=== PATIENT | female | born 1990 | race African-American/Black ===

== ENCOUNTER 2017-12-20 21:32 | Emergency (ER) | payer SELFPAY ==
[2017-12-20 22:25] LABS: Absolute Lymphocytes (CBC) 4.2 K/uL (0.7-4.9); Absolute Monocytes 0.6 K/uL (0.1-1.3); Absolute Neutrophil 5.8 K/uL (1.8-8.0); Basophils % 0.2 % (0-1.3); Eosinophils % 3.1 % (0-4.4); Hematocrit 40.9 % (36.0-45.0); Lymphocytes % 38.3 % (15.3-44.8); MCV 80.5 fL (80-100); MPV 7.9 fL (7.6-11.3); Monocytes % 5.4 % (3.3-12.3); RBC Red Blood Cell Count 5.08 M/uL (3.86-4.86)
[2017-12-20 22:30] LABS: Protime INR 1.15
[2017-12-20 22:49] LABS: Bilirubin Direct 0.1 mg/dL (0-0.2); Bilirubin Total 0.4 mg/dL (0.2-1.0); CKMB Creatine Kinase MB 1.1 ng/mL (0.3-3.6); Magnesium 2.1 mg/dL (1.8-2.4); Potassium 3.6 mmol/L (3.5-5.1); Protein, Total 8.3 g/dL (6.4-8.2)
[2017-12-20 23:40] LABS: Urine Specific Gravity >1.030 (1.005-1.030)
[2017-12-20 23:40] LABS: Urine Blood TRACE (NEG); Urine Glucose NEGATIVE (NEG); Urine Protein NEGATIVE (NEG); Urine Specific Gravity >1.030 (1.005-1.030); Urine pH 5.5 (5.0-7.0)
[2017-12-21] MEDS ORDERED: KETOROLAC 30 MG/ML INJ ONE (00:02)
--- NOTE | 2017-12-21 00:08 | EDPHYS ---
Physician Documentation [facility] Name: Chastity Otto Age: 27 yrs Sex: Female : 1990 Arrival Date: 12/20/2017 Time: 21:33 Bed 6 Private MD: ED Physician Mat Clark INSURANCE ANALYST: 12/20 22:32 LMP 12/15/2017 ea Historical: - Allergies: 21:48 Sulfa (Sulfonamide Antibiotics); ea - Home Meds: 21:48 None [Active]; ea - PMHx: 21:48 None; ea - PSHx: 21:48 None; ea - Immunization history:: Adult Immunizations up to date. - Social history:: Smoking status: Patient/guardian denies using tobacco. - Ebola Screening: : No symptoms or risks identified at this time. Vital Signs: 21:41 BP 120 / 103; Pulse 80; Resp 18; Temp 98(O); Pulse Ox 98% on R/A; Weight 120.2 kg; ea Height 5 ft. 1 in. (154.94 cm); Pain 7/10; 21:51 BP 138 / 99; Pulse 79; Resp 18; Pulse Ox 97% ; ea 22:33 BP 129 / 91; Pulse 74; Resp 18; Pulse Ox 99% on R/A; ea 23:28 BP 127 / 80; Pulse 64; Resp 18; Pulse Ox 99% on R/A; ea 12/21 00:09 BP 138 / 99; Pulse 65; Resp 18; Pulse Ox 99% on R/A; ak1 12/20 21:41 Body Mass Index 50.07 (120.20 kg, 154.94 cm) ea MDM: 12/20 21:56 Patient medically screened. tw 12/20 21:57 Order name: Basic Metabolic Panel; Complete Time: 23:56 [facility] 12/20 23:56 Interpretation: Within normal limits: GFR 79. tw4 12/20 21:57 Order name: CBC with Diff; Complete Time: 23:56 [facility] 12/20 23:56 Interpretation: Normal except: WBC 11.0; RBC 5.08; PLT 421. [facility] 12/20 21:57 Order name: Ckmb; Complete Time: 23:56 [facility] 12/20 21:57 Order name: CPK; Complete Time: 23:56 12/20 21:57 Order name: LFT's; Complete Time: 23:56 12/20 23:56 Interpretation: Normal except: TP 8.3; GLOB 4.3; A/G 0.9. 12/20 21:57 Order name: Magnesium; Complete Time: 23:56 12/20 21:57 Order name: NT PRO-BNP; Complete Time: 23:56 12/20 21:57 Order name: PT-INR; Complete Time: 23:56 12/20 21:57 Order name: Ptt, Activated; Complete Time: 23:56 12/20 21:57 Order name: Troponin (emerg Dept Use Only); Complete Time: 23:56 12/20 21:57 Order name: XRAY Chest (1 view) 12/20 22:29 Order name: Urine Dipstick--Ancillary (enter results); Complete Time: 23:56 rust 12/20 23:56 Interpretation: Normal except: USPGR >1.030; UBLD TRACE. 12/20 22:30 Order name: Urine --Ancillary (enter results); Complete Time: 23:56 12/20 21:57 Order name: EKG; Complete Time: 21:58 12/20 21:57 Order name: Cardiac monitoring; Complete Time: 22:05 12/20 21:57 Order name: EKG - Nurse/Tech; Complete Time: 21:58 12/20 21:57 Order name: IV Saline Lock; Complete Time: 22:17 12/20 21:57 Order name: Labs collected and sent; Complete Time: 22:17 12/20 21:57 Order name: O2 Per Protocol; Complete Time: 21:58 12/20 21:57 Order name: O2 Sat Monitoring; Complete Time: 21:58 12/20 21:57 Order name: Urine Dipstick-Ancillary (obtain specimen); Complete Time: 22:14 Administered Medications: 12/21 00:00 Drug: TORadol 30 mg Route: IVP; Site: right antecubital; ak1 00:10 Follow up: Response: No adverse reaction ak1 Disposition: 12/21/17 00:07 Discharged to Home. Impression: Chest pain, unspecified, Headache. - Condition is Stable. - Discharge Instructions: Migraine Headache, Pain Without a Known Cause, Chest Pain, Pediatric. - Prescriptions for Fiorinal 50- 325-40 mg Oral Capsule - take 1 capsule by ORAL route every 4 hours As needed - not to exceed 6 capsules per day; 20 capsule. - Medication Reconciliation Form, Thank You Letter, Antibiotic Education, Prescription Opioid Use form. - Follow up: Private Physician; When: As needed; Reason: Recheck today's complaints, Re-evaluation by your physician. - Problem is new. - Symptoms have improved. Addendum: 01/17/2018 13:03 Addendum: Pt is a 26 year old female that complains of left sided headache for 4 days. t w4 Pt denies neck stiffness, fevers, photophobia or sore throat. Pt also complains of mild sided left chest pain associated with palpiations. Addendum: PMH: none PSH: none Meds: none All: none. Addendum: ROS:Constitutional: negative for fevers chills HEENT: negative for sore throat, ear pain CV: negative for CP, KOROMA Resp:negative for SOB, KOROMA Abdomen: negative for abdominal pain, nausea vomiting diarrhea Neuro: negative for weakness, numbness, parasthesias. Addendum: PE: General well developed female in NAD HEENT: PERRLA, EOMI, pharynx normal CV: RRR, nl S1, S2 Resp: CTAB, no wheezing, no rales Abdomen: soft, ND,NT, nl BS Neuro: alert and oriented times three. Signatures: Dispatcher [employer] EDME Areli Ravi RN RN Judy Driver RN Mat Pradhan ea, MD MD tw4 Corrections: (The following items were deleted from the chart) 12/21 00:24 00:07 12/21/2017 00:07 Discharged to Home. Impression: Chest pain, unspecified; ea Headache. Condition is Stable. Forms are Medication Reconciliation Form, Thank You Letter, Antibiotic Education, Prescription Opioid Use. Follow up: Private Physician; When: As needed; Reason: Recheck today's complaints, Re-evaluation by your physician. Problem is new. Symptoms have improved. tw4
--- NOTE | 2017-12-21 00:08 | ER ---
Nurse's Notes [facility] Name: Chastity Otto Age: 27 yrs Sex: Female : 1990 Arrival Date: 12/20/2017 Time: 21:33 Bed 6 Private MD: Diagnosis: Chest pain, unspecified;Headache Presentation: 12/20 21:45 Presenting complaint: Patient states: Pt complaining of throbbing headache to left side ea of head that has been constant for the past 4 days. Reports chest pain and palpitations that started today. Transition of care: patient was not received from another setting of care. Onset of symptoms was December 20, 2017. Risk Assessment: Do you want to hurt yourself or someone else? Patient reports no desire to harm self or others. Initial Sepsis Screen: Does the patient meet any 2 criteria? No. Patient's initial sepsis screen is negative. Does the patient have a suspected source of infection? No. Patient's initial sepsis screen is negative. Care prior to arrival: None. 21:45 Method Of Arrival: Ambulatory ea 21:45 Acuity: ROSA 3 ea Triage Assessment: 21:51 General: Appears uncomfortable, Behavior is calm, cooperative, appropriate for age. ea Pain: Complains of pain in left side of head and left parietal area, midsternal pain. Neuro: Level of Consciousness is awake, alert, obeys commands, Oriented to person, place, time, situation. Cardiovascular: Heart tones S1 S2 present Patient's skin is warm and dry. Respiratory: Airway is patent Respiratory effort is even, unlabored, Respiratory pattern is regular, symmetrical. POISON INFORMATION SPECIALIST: 22:32 LMP 12/15/2017 ea Historical: - Allergies: 21:48 Sulfa (Sulfonamide Antibiotics); ea - Home Meds: 21:48 None [Active]; ea - PMHx: 21:48 None; ea - PSHx: 21:48 None; ea - Immunization history:: Adult Immunizations up to date. - Social history:: Smoking status: Patient/guardian denies using tobacco. - Ebola Screening: : No symptoms or risks identified at this time. Screenin:54 Abuse screen: Denies threats or abuse. Nutritional screening: No deficits noted. ea Tuberculosis screening: No symptoms or risk factors identified. Fall Risk None identified. Assessment: 22:31 Reassessment: Patient and/or family updated on plan of care and expected duration. Pain ea level reassessed. Patient is alert, oriented x 3, equal unlabored respirations, skin warm/dry/pink. 22:31 Pain: Complains of pain in mid-sternal area Pain does not radiate. Pain began 4 hours ea ago. 23:28 Reassessment: Patient and/or family updated on plan of care and expected duration. Pain ea level reassessed. Patient is alert, oriented x 3, equal unlabored respirations, skin warm/dry/pink. 12/21 00:21 Reassessment: Patient and/or family updated on plan of care and expected duration. Pain ea level reassessed. Patient is alert, oriented x 3, equal unlabored respirations, skin warm/dry/pink. Discharge instructions given to patient, verbalized the understanding of instruction. Vital Signs: 12/20 21:41 BP 120 / 103; Pulse 80; Resp 18; Temp 98(O); Pulse Ox 98% on R/A; Weight 120.2 kg; ea Height 5 ft. 1 in. (154.94 cm); Pain 7/10; 21:51 BP 138 / 99; Pulse 79; Resp 18; Pulse Ox 97% ; ea 22:33 BP 129 / 91; Pulse 74; Resp 18; Pulse Ox 99% on R/A; ea 23:28 BP 127 / 80; Pulse 64; Resp 18; Pulse Ox 99% on R/A; ea 12/21 00:09 BP 138 / 99; Pulse 65; Resp 18; Pulse Ox 99% on R/A; ak1 12/20 21:41 Body Mass Index 50.07 (120.20 kg, 154.94 cm) ea ED Course: 12/20 21:33 Patient arrived in ED. ds1 21:45 Judy Robb, RN is Primary Nurse. ea 21:45 Arm band placed on right wrist. Patient placed in an exam room, on a stretcher, on ea monitoring engineer, on pulse oximetry. 21:45 Patient has correct armband on for positive identification. court monitor on. Pulse ea ox on. NIBP on. 21:48 Triage completed. ea 21:54 Patient maintains SpO2 saturation greater than 95% on room air. ea 21:56 Mat Clark MD is Attending Physician. tw4 21:58 EKG completed in triage. Results shown to . ak1 22:16 Initial lab(s) drawn, by me, sent to lab. Inserted saline lock: 20 gauge in right ks6 antecubital area, using aseptic technique. Blood collected. 22:26 X-ray completed. Portable x-ray completed in exam room. Patient tolerated procedure mh1 well. 22:27 XRAY Chest (1 view) In Process Unspecified. EDMS 12/21 00:11 No provider procedures requiring assistance completed. ak1 00:23 IV discontinued, intact, bleeding controlled, No redness/swelling at site. Pressure ea dressing applied. Administered Medications: 00:00 Drug: TORadol 30 mg Route: IVP; Site: right antecubital; ak1 00:10 Follow up: Response: No adverse reaction ak1 Outcome: 00:07 Discharge ordered by tw4 00:11 Condition: stable ak1 00:21 Discharge instructions given to patient, Instructed on discharge instructions, follow ea up and referral plans. medication usage, Demonstrated understanding of instructions, follow-up care, medications, Prescriptions given X 2. 00:23 Discharged to home ambulatory. ea 00:24 Patient left the ED. ea Signatures: Dispatcher [employer] EDTN Mabel Sims 1 Rebecca Sharp ds1 Areli Ravi RN RN ak1 Judy Robb RN RN ea Wadley, Terrence, MD MD tw4 Rafael Austin ks6
--- NOTE | 2017-12-21 07:19 | RAD REPORT ---
EXAM DESCRIPTION: RAD - Chest Single View - 12/20/2017 10:28 pm CLINICAL HISTORY: Chest pain COMPARISON: July 01 TECHNIQUE: AP portable chest image was obtained 2215 hours . FINDINGS: Lungs are clear. Heart and vasculature are normal. No measurable pleural effusion and no p neumothorax. No gross bony abnormality seen. No acute aortic findings suspected. IMPRESSION: No acute cardiopulmonary process. No significant interval change.
--- NOTE | 2017-12-21 09:23 | EKG ---
Test Date: 2017-12-20 Test Time: 21:44:42 Project Control Manager: KIMBERLY MEASUREMENT RESULTS: Intervals: Rate: 82 NJ: 126 QRSD: 82 QT: 378 QTc: 441 Glidden: P: 25 NJ: 126 QRS: 14 T: 2 INTERPRETIVE STATEMENTS: Normal sinus rhythm Normal ECG Compared to ECG 07/01/2017 01:57:33 T-wave abnormality no longer present Electronically Signed On 12-21-17 09:22:41 CDT by Paul Du
== END 2017-12-21 00:24 | disposition home or self-care (01) ==
LOC: ER 21:32
DX: R07.9 Chest pain, unspecified (principal); R51 Headache; Z88.2 Allergy status to sulfonamides
CPT/HCPCS: 36415; 71045; 80048; 80076; 81003; 81025; 82550; 82553; 83735; 83880; 84484; 85025; 85610; 85730; 93005; 96374; 99285

== ENCOUNTER 2019-03-12 12:50 | Emergency (ER) | payer SELFPAY ==
[2019-03-12] MEDS ORDERED: NA CHLORIDE 0.9% 1,000 ML ONE (13:59)
[2019-03-12] MEDS ORDERED: ONDANSETRON 4 MG/2 ML VIAL ONE ×2 (13:59→16:09)
[2019-03-12 14:57] LABS: Absolute Lymphocytes (CBC) 0.6 K/uL (0.7-4.9); Basophils % 0.1 % (0-1.3); Hematocrit 38.9 % (36.0-45.0); Lymphocytes % 5.2 % (15.3-44.8); MPV 8.1 fL (7.6-11.3); RBC Red Blood Cell Count 4.87 M/uL (3.86-4.86)
[2019-03-12 15:21] LABS: Urine Bacteria 20-50 /HPF (<20); Urine Culture Reflex Order REFLEXED; Urine RBC <5 /HPF (NONE SEEN)
[2019-03-12 15:21] LABS: Urine Blood TRACE (NEG); Urine Glucose NEGATIVE (NEG); Urine Protein NEGATIVE (NEG); Urine Specific Gravity 1.015 (1.005-1.030)
[2019-03-12 16:15] LABS: Platelet Estimate ADEQ; Urine White Blood Cell Casts OK
[2019-03-12 16:16] LABS: Blood Morphology Comment NOT SEEN (NOT SEEN)
[2019-03-12] MEDS ORDERED: KETOROLAC 30 MG/ML INJ ONE (17:44)
[2019-03-12 17:45] LABS: ALT/SGPT 15 U/L (12-78); AST/SGOT 18 U/L (15-37); Albumin 3.7 g/dL (3.4-5.0); Alkaline Phosphatase 72 U/L (45-117); BUN Blood Urea Nitrogen 9 mg/dL (7-18); Bicarbonate 26 mmol/L (21-32); Bilirubin Direct 0.2 mg/dL (0-0.2); Bilirubin Total 0.9 mg/dL (0.2-1.0); Glucose Level 110 mg/dL (74-106); Lipase 70 U/L (73-393); Potassium 3.9 mmol/L (3.5-5.1); Protein, Total 7.5 g/dL (6.4-8.2); Sodium Level 136 mmol/L (136-145)
--- NOTE | 2019-03-12 18:08 | ER ---
Nurse's Notes [facility] Name: Chastity Otto Age: 29 yrs Sex: Female : 1990 Arrival Date: 03/12/2019 Time: 12:52 Bed 20 Private MD: Vivek Fabian Diagnosis: Vomiting;Diarrhea, unspecified Presentation: 03/12 13:01 Presenting complaint: N/V/D and chills x 2 days. Transition of care: patient was not hb received from another setting of care. Onset of symptoms was March 11, 2019. Risk Assessment: Do you want to hurt yourself or someone else? Patient reports no desire to harm self or others. Initial Sepsis Screen: Does the patient meet any 2 criteria? HR > 90 bpm. No. Patient's initial sepsis screen is negative. Care prior to arrival: None. 13:01 Method Of Arrival: Ambulatory hb 13:01 Acuity: ROSA 3 hb 18:19 Initial Sepsis Screen: Does the patient have a suspected source of infection? No. ch Patient's initial sepsis screen is negative. Triage Assessment: 18:19 GI: Reports nausea, vomiting. 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 - Social history:: Smoking status: Patient/guardian denies using tobacco. - Ebola Screening: : No symptoms or risks identified at this time. Screenin:34 Abuse screen: Denies threats or abuse. Denies injuries from another. Nutritional ch screening: No deficits noted. Tuberculosis screening: No symptoms or risk factors identified. Fall Risk None identified. Assessment: 13:34 General: Appears in no apparent distress. comfortable, Behavior is calm, cooperative, ch appropriate for age. Pain: Complains of pain in abdomen Pain currently is 8 out of 10 on a pain scale. Pain began suddenly. Neuro: No deficits noted. Respiratory: No deficits noted. Airway is patent Respiratory effort is even, unlabored. GI: Abdomen is round obese, Bowel sounds present X 4 quads. Abd is soft and non tender. : No signs and/or symptoms were reported regarding the genitourinary system. Derm: Skin is pink, warm \T\ dry. 14:46 Reassessment: Patient appears in no apparent distress at this time. Patient and/or ch family updated on plan of care and expected duration. Pain level reassessed. Patient is alert, oriented x 3, equal unlabored respirations, skin warm/dry/pink. 15:10 Reassessment: Patient appears in no apparent distress at this time. contacted Lab about pt results, states they are backed up. 15:24 Reassessment: Patient appears in no apparent distress at this time. Patient and/or ch family updated on plan of care and expected duration. Pain level reassessed. Patient is alert, oriented x 3, equal unlabored respirations, skin warm/dry/pink. Patient states feeling better. 16:00 Reassessment: Patient appears in no apparent distress at this time. LAB STATES THEY DO ch NOT HAVE A GREEN TOP ON THE PT. BLOOD RE DRAWN AND SENT TO LAB. LAB CONFIRMS THEY GOT THE BLOOD. PT C/O INCREASE IN NAUSEA, PT MEDICATED PER ORDERS. 16:48 Reassessment: Patient appears in no apparent distress at this time. LAB STATES THEY ch HAVE HER BLOOD BUT DO NOT HAVE THE BMP LABEL. LAB STATES THEY WILL RUN THE BMP NOW. TSH IS RUNNING NOW. 17:29 Reassessment: TSH RESULTED. I CONTACT BRENDA CHEN CHECKING ON BMP NOW. ch 17:30 Reassessment: Patient appears in no apparent distress at this time. Patient and/or ch family updated on plan of care and expected duration. Pain level reassessed. Patient is alert, oriented x 3, equal unlabored respirations, skin warm/dry/pink. 17:41 Reassessment: tp c/o headache. order received for tordal. pt medicated per orders. ch 18:15 Reassessment: Patient appears in no apparent distress at this time. Patient and/or ch family updated on plan of care and expected duration. Pain level reassessed. Patient is alert, oriented x 3, equal unlabored respirations, skin warm/dry/pink. Patient denies pain at this time. Patient states feeling better. Patient states symptoms have improved. Vital Signs: 13:02 BP 152 / 105; Pulse 123; Resp 16; Temp 97.7; Pulse Ox 100% on R/A; Weight 122.47 kg; hb Height 5 ft. 2 in. (157.48 cm); Pain 0/10; 14:00 BP 127 / 87; Pulse 105; Resp 14; Temp 98.4; Pulse Ox 99% on R/A; Pain 0/10; ch 15:24 BP 136 / 88; Pulse 106; Resp 20; Pulse Ox 98% on R/A; Pain 0/10; ch 16:48 BP 140 / 92; Pulse 97; Resp 16; Temp 98.8; Pulse Ox 99% on R/A; Pain 0/10; ch 18:15 BP 120 / 79; Pulse 95; Resp 16; Temp 98.7; Pulse Ox 99% on R/A; Pain 0/10; ch 13:02 Body Mass Index 49.38 (122.47 kg, 157.48 cm) hb ED Course: 12:52 Patient arrived in ED. mr 12:52 Vivek Fabian MD is Private Physician. mr 13:02 Triage completed. hb 13:02 Arm band placed on. hb 13:05 Bobby Vasquez MD is Attending Physician. 13:05 Attending Physician role handed off by Bobby Vasquez MD john 13:05 Mark Bennett MD is Attending Physician. [facility] 13:12 Bobby Vasquez MD is Attending Physician. 13:34 Lizzie Garzon, ERICKSON is Primary Nurse. 13:34 No apparent distress. Resting quietly. ch 13:34 Patient has correct armband on for positive identification. Bed in low position. Call light in reach. Side rails up X 1. Adult w/ patient. Pulse ox on. NIBP on. Door closed. Noise minimized. Lights dimmed. 13:34 No provider procedures requiring assistance completed. Urine collected: clean catch specimen. Inserted saline lock: 18 gauge in right antecubital area, using aseptic technique. Blood collected. 18:15 IV discontinued, intact, bleeding controlled, No redness/swelling at site. Pressure dressing applied. Administered Medications: 13:36 Drug: NS 0.9% 1000 ml Route: IV; Rate: 1 bolus; Site: right antecubital; ch 14:45 Follow up: Response: No adverse reaction; IV Status: Completed infusion 13:36 Drug: Zofran 4 mg Route: IVP; Site: right antecubital; ch 14:45 Follow up: Response: No adverse reaction; Marked relief of symptoms ch 16:10 Drug: Zofran 4 mg Route: IVP; Site: right antecubital; ch 17:26 Follow up: Response: No adverse reaction; Marked relief of symptoms ch 17:52 Drug: TORadol 15 mg Route: IVP; Site: right antecubital; ch 18:15 Follow up: Response: No adverse reaction; Pain is decreased ch Outcome: 18:07 Discharge ordered by . gs 18:15 Discharged to home ambulatory, with family. ch 18:15 Condition: stable 18:15 Discharge instructions given to patient, family, Instructed on discharge instructions, follow up and referral plans. medication usage, Demonstrated understanding of instructions, follow-up care, medications, clear liquid, advance to bland diet as tolerated. Prescriptions given X 1. 18:18 Patient left the ED. ch Signatures: Lizzie Garzon RN RN ch Mark Bennett MD MD cha Rivera, Mary mr Jacki Frazier RN RN Bobby Vasquez MD MD Corrections: (The following items were deleted from the chart) 14:49 13:34 GI: Abdomen is round obese, Bowel sounds present X 4 quads. Abd is soft X 4 quads ch Abdomen is tender to palpation in left upper quadrant, right lower quadrant and left lower quadrant ch
--- NOTE | 2019-03-12 18:08 | EDPHYS ---
Physician Documentation [facility] Name: Chastity Otto Age: 29 yrs Sex: Female : 1990 Arrival Date: 03/12/2019 Time: 12:52 Bed 20 Private MD: Vivek Fabian ED Physician Bobby Vasquez HPI: 03/12 18:00 This 29 yrs old Black Female presents to ER via Ambulatory with complaints of gs Nausea/Vomiting/Diarrhea. 18:00 The patient presents to the emergency department with nausea, vomiting, diarrhea. gs Onset: The symptoms/episode began/occurred yesterday. Possible causes: unknown. The symptoms are aggravated by nothing. The symptoms are alleviated by nothing. Associated signs and symptoms: Pertinent negatives: abdominal pain, fever. Severity of symptoms: At their worst the symptoms were severe in the emergency department the symptoms have improved moderately. The patient has experienced similar episodes in the past, a few times. The patient has not recently seen a physician. 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 - Social history:: Smoking status: Patient/guardian denies using tobacco. - Ebola Screening: : No symptoms or risks identified at this time. ROS: 18:00 All other systems are negative. gs Exam: 18:00 Head/Face: Normocephalic, atraumatic. Eyes: Pupils equal round and reactive to light, gs extra-ocular motions intact. Lids and lashes normal. Conjunctiva and sclera are non-icteric and not injected. Cornea within normal limits. Periorbital areas with no swelling, redness, or edema. ENT: Nares patent. No nasal discharge, no septal abnormalities noted. Tympanic membranes are normal and external auditory canals are clear. Oropharynx with no redness, swelling, or masses, exudates, or evidence of obstruction, uvula midline. Mucous membranes moist. Neck: Trachea midline, no thyromegaly or masses palpated, and no cervical lymphadenopathy. Supple, full range of motion without nuchal rigidity, or vertebral point tenderness. No Meningismus. Chest/axilla: Normal chest wall appearance and motion. Nontender with no deformity. No lesions are appreciated. Cardiovascular: Regular rate and rhythm with a normal S1 and S2. No gallops, murmurs, or rubs. Normal PMI, no JVD. No pulse deficits. Respiratory: Lungs have equal breath sounds bilaterally, clear to auscultation and percussion. No rales, rhonchi or wheezes noted. No increased work of breathing, no retractions or nasal flaring. Back: No spinal tenderness. No costovertebral tenderness. Full range of motion. Skin: Warm, dry with normal turgor. Normal color with no rashes, no lesions, and no evidence of cellulitis. MS/ Extremity: Pulses equal, no cyanosis. Neurovascular intact. Full, normal range of motion. Neuro: Awake and alert, GCS 15, oriented to person, place, time, and situation. Cranial nerves II-XII grossly intact. Motor strength 5/5 in all extremities. Sensory grossly intact. Cerebellar exam normal. Normal gait. 18:00 Constitutional: The patient appears alert, awake, uncomfortable. 18:00 Abdomen/GI: Palpation: abdomen is soft and non-tender, in all quadrants, rebound tenderness, is not appreciated. Vital Signs: 13:02 BP 152 / 105; Pulse 123; Resp 16; Temp 97.7; Pulse Ox 100% on R/A; Weight 122.47 kg; hb Height 5 ft. 2 in. (157.48 cm); Pain 0/10; 14:00 BP 127 / 87; Pulse 105; Resp 14; Temp 98.4; Pulse Ox 99% on R/A; Pain 0/10; ch 15:24 BP 136 / 88; Pulse 106; Resp 20; Pulse Ox 98% on R/A; Pain 0/10; ch 16:48 BP 140 / 92; Pulse 97; Resp 16; Temp 98.8; Pulse Ox 99% on R/A; Pain 0/10; ch 18:15 BP 120 / 79; Pulse 95; Resp 16; Temp 98.7; Pulse Ox 99% on R/A; Pain 0/10; ch 13:02 Body Mass Index 49.38 (122.47 kg, 157.48 cm) MDM: 13:17 Patient medically screened. gs 18:00 Differential diagnosis: Nonspecific abd pain, viral gastroenteritis, gastroenteritis. Data reviewed: vital signs, nurses notes. Counseling: I had a detailed discussion with the patient and/or guardian regarding: the historical points, exam findings, and any diagnostic results supporting the discharge/admit diagnosis, lab results, the need for outpatient follow up. Response to treatment: the patient's symptoms have markedly improved after treatment, the patient's condition has returned to base line. 03/12 13:18 Order name: Urine Microscopic Only; Complete Time: 15:48 03/12 13:18 Order name: Basic Metabolic Panel; Complete Time: 17:58 03/12 13:18 Order name: CBC with Diff; Complete Time: 17:58 03/12 13:18 Order name: Hepatic Function; Complete Time: 17:58 03/12 13:18 Order name: Lipase; Complete Time: 17:58 03/12 14:05 Order name: Urine Dipstick--Ancillary (enter results); Complete Time: 15:48 03/12 14:05 Order name: Urine --Ancillary (enter results); Complete Time: 15:48 03/12 14:27 Order name: TSH; Complete Time: 17:58 03/12 15:01 Order name: CBC Smear Scan; Complete Time: 17:58 EDKS 03/12 15:23 Order name: Urine Culture [facility] 03/12 13:18 Order name: Urine Test (obtain specimen); Complete Time: 14:46 03/12 13:18 Order name: Urine Dipstick-Ancillary (obtain specimen); Complete Time: 14:46 03/12 13:18 Order name: IV Saline Lock; Complete Time: 14:45 03/12 13:18 Order name: Labs collected and sent; Complete Time: 14:46 gs Administered Medications: 13:36 Drug: NS 0.9% 1000 ml Route: IV; Rate: 1 bolus; Site: right antecubital; ch 14:45 Follow up: Response: No adverse reaction; IV Status: Completed infusion ch 13:36 Drug: Zofran 4 mg Route: IVP; Site: right antecubital; ch 14:45 Follow up: Response: No adverse reaction; Marked relief of symptoms ch 16:10 Drug: Zofran 4 mg Route: IVP; Site: right antecubital; ch 17:26 Follow up: Response: No adverse reaction; Marked relief of symptoms 17:52 Drug: TORadol 15 mg Route: IVP; Site: right antecubital; 18:15 Follow up: Response: No adverse reaction; Pain is decreased Disposition: 03/12/19 18:07 Discharged to Home. Impression: Vomiting, Diarrhea, unspecified. - Condition is Stable. - Discharge Instructions: Diarrhea, Adult, Nausea and Vomiting, Adult. - Prescriptions for Zofran 4 mg Oral Tablet - take 1 tablet by ORAL route every 12 hours As needed; 10 tablet. - Medication Reconciliation Form, Thank You Letter, Antibiotic Education, Prescription Opioid Use form. - Follow up: Private Physician; When: 2 - 3 days; Reason: Re-evaluation by your physician. Signatures: Dispatcher [employer] EDLizzie Acuna RN RN Jacki Frazier RN RN Bobby Vasquez MD MD gs Corrections: (The following items were deleted from the chart) 18:18 18:07 03/12/2019 18:07 Discharged to Home. Impression: Vomiting; Diarrhea, unspecified. Condition is Stable. Forms are Medication Reconciliation Form, Thank You Letter, Antibiotic Education, Prescription Opioid Use. Follow up: Private Physician; When: 2 - 3 days; Reason: Re-evaluation by your physician. gs
[2019-03-12 19:37] VITALS: O2SAT 99
[2019-03-12 19:38] VITALS: BP 120/79; TEMP 98.7
== END 2019-03-12 18:18 | disposition home or self-care (01) ==
LOC: ER 12:50
DX: R19.7 Diarrhea, unspecified (principal); Z88.2 Allergy status to sulfonamides
CPT/HCPCS: 36415; 80048; 80076; 81003; 81015; 81025; 83690; 84443; 85025; 87086; 87088; 96361; 96374; 96375; 99284; J2405; J7030

== ENCOUNTER 2021-07-10 19:00 | Emergency (ER) | payer SELFPAY ==
--- OUTSIDE RECORDS SUMMARY | 2021-07-10 19:02 | XMS REPORT | Continuity of Care Document ---
:1990 Author Organization [facility] t Address [address] [place] [address] Care Team Providers Name Role Phone Unavailable Unavailable Unavailable Payers Payer Name Policy Type Policy Number Effective Date Expiration Date S ource Problems This patient has no known problems. Allergies, Adverse Reactions, Alerts Allergy Allergy Status Severity Reaction(s) Onset Inactive Treating Comm ents Source Name Type Date Date Clinician Sulfa DA Active SV 2013-06 [facility] ([facility]11 [place] [facility] 00:[facility]: d [facility]iot 00 [facility] Sulfa DA Active SV RASH, 2013-06 [facility] (Sulfona [facility] 1-11 [facility] [facility] 00:00: d Antibiot 00 [facility] Medications This patient has no known medications. Procedures This patient has no known procedures. Encounters Start End Encounter Admission Attending Care Care Encounter Source Date/Time Date/Time Type Type Clinicians Facility Department ID 2020-06-17 Inpatient [facility] [id number] [facility] 18:07:00 [id number] [facility] Results Test Description Test Time Test Comments Results Result Comments Source BASIC METABOLIC PANEL 2020-06-17 18:41:00 Test Item Value Reference Range Interpretation Comme nts SODIUM (test code = NA) 137 mmol/L 134-147 N POTASSIUM (test code = K) 3.6 mmol/L 3.4-5.0 N CHLORIDE (test code = CL) 104 mmol/L 100-108 N CARBON DIOXIDE (test code = CO2) 29 mmol/L 21-32 N ANION GAP (test code = GAP) 4.0 GAP calc 4.0-15.0 N GLUCOSE (test code = GLU) 119 MG/DL 70-110 H BLOOD UREA NITROGEN (test code = BUN) 11 MG/DL 7-18 N GLOMERULAR FILTRATION RATE (test code = GFR) >=60 max estimate estG FR >60 CREATININE (test code = CREAT) 0.9 MG/DL 0.6-1.0 N CALCIUM (test code = CA) 8.9 MG/DL 8.5-10.1 N Completed by Nursing: NOCREATINE KINASE (CK)2020-06-17 18:41:00 Test Item Value Reference Range Interpretation Comments CREATINE KINASE (CK) (test code = 136 Unit/L 26-192 N CK) Completed by Nursing: [id number] 18:41:00 Test Item Value Reference Range Interpretation Comments TROPONIN-I (test < 0.015 NG/ML 0.000-0.045 N Negative: </= 0.045 code = TROPI) Positive: >/= 0.046 Correlation wit h serial results, other cardiac markers, and cl inical findings is nec essary to determine the c linical significance of this result. Quantit ative results using d ifferent methodologies s hould not be compared to one another as nume rical results may ivonne yby method. Completed by Nursing: NO- XR CHEST 1 [id number] 18:36:00 [facility] 1990 Sex: F Name: JULISSA CARR [facility] : Age/S: 30 / F [id number] Unit #: [id number] Loc: [place] [address] Phys: Candy Castro MD Acct: [id number] Dis Date: Status: REG ER PHONE #: [phone] Exam Date: 06/17/20201826 FAX #:Reason: chest pain EXAMS: CPT: [id number] XR CHEST 1 V 73722 Fluoro Time: DAP (Gy m2): Air Kerma (mGy): EXAM: CHEST ONE VIEW INDICATION: CHEST PAIN LOCATION: B2 COMPARISON: None available TECHNIQUE: AP view of the chest FINDINGS: The heart size is normal. The lungs are clear bilaterally. The pulmonary vasculature is normal. No pneumothorax or pleural effusion is identified. The osseous structures are normal. IMPRESSION: No acute cardiopulmonary process. at 1836 Rep orted and signed by: Soniya Armstrong M.D. CC: Candy Castro MD; Natalia TRUJILLO PAGE 1 Signed Report Name: JULISSA CARR [facility] : 1990 Age/S: 30 / F [id number] [facility] Unit #: [id number] Loc: [place], [place] [address]Jjgt: Candy Castro MD Acct: [id number] Dis Date: Status: REG ER PHONE #: [phone] Exam Date: 06/17/20201826 FAX #: Reason: chest pain EXAMS: CPT: [id number] XRCHEST 1 V 32853 Fluoro Time: DAP (Gy m2): Air Kerma (mGy): <Continued> Technologist: Sparkle Breaux RT(R)(CT) Trnscb Date/Time: 06/17/2020 (1835) 16 Orig Print D/T: S: 06/17/2020 (1838) PAGE 2 Signed ReportCBC W/O [id number] 18:23:00 Test Item Value Reference Range Interpretation Comments WHITE BLOOD CELL (test code = WBC) 10.9 K/mm3 3.5-11.0 N RED BLOOD CELL (test code = RBC) 4.73 M/mm3 4.70-6.10 N HEMOGLOBIN (test code = HGB) 12.9 G/DL 10.4-14.9 N HEMATOCRIT (test code = HCT) 37.6 % 31.5-44.1 N MEAN CELL VOLUME (test code = MCV) 79.5 Fl 84.5-98.6 L MEAN CELL HGB (test code = MCH) 27.3 pg 27.0-34.2 N MEAN CELL HGB CONCETRATION (test 34.3 G/DL 31.5-34.0 H code = MCHC) RED CELL DISTRIBUTION WIDTH (test 13.1 SD 11.5-14.5 N code = RDW) PLATELET COUNT (test code = PLT) 379 K/mm3 150-450 N MEAN PLATELET VOLUME (test code = 9.70 fL 7.0-10.5 N MPV)
[2021-07-10] MEDS ORDERED: NA CHLORIDE 0.9% 1,000 ML ONE (21:57)
[2021-07-10] MEDS ORDERED: ONDANSETRON 4 MG/2 ML VIAL ONE (21:57)
[2021-07-10] MEDS ORDERED: MORPHINE 4 MG/ML SYR ONE (21:57)
[2021-07-10 22:47] LABS: Hematocrit 33.4 % (36.0-45.0); Lymphocytes % 23.3 % (15.3-44.8); MPV 7.1 fL (7.6-11.3); RBC Red Blood Cell Count 4.22 M/uL (3.86-4.86)
[2021-07-10 22:48] LABS: Protime INR 1.04
--- NOTE | 2021-07-10 22:49 | RAD REPORT ---
EXAM DESCRIPTION: RAD - Chest Single View - 07/10/2021 10:09 pm CLINICAL HISTORY: Chest pain;SOB COMPARISON: <Comparisons> FINDINGS: Lines: None. Lungs: No evidence of edema or pneumonia. Pleural: No significant pleural effusions or pneumothorax. Cardiac: The heart size is within normal limits. Bones: No acute fractures. Other: IMPRESSION: No acute cardiopulmonary disease.
[2021-07-10 22:50] LABS: Urine Blood Trace-intact (Negative); Urine Glucose Negative (Negative); Urine Protein Negative (Negative); Urine Specific Gravity 1.025 (1.005-1.030)
[2021-07-10 22:54] LABS: Urine Specific Gravity/Preg 1.025 (1.005-1.030)
[2021-07-10 23:06] LABS: ALT/SGPT 12 U/L (12-78); AST/SGOT 9 U/L (15-37); Albumin 3.2 g/dL (3.4-5.0); Alkaline Phosphatase 70 U/L (45-117); BUN Blood Urea Nitrogen 9 mg/dL (7-18); Bicarbonate 28 mmol/L (21-32); Bilirubin Direct < 0.1 mg/dL (0-0.2); Bilirubin Total 0.3 mg/dL (0.2-1.0); Glucose Level 104 mg/dL (74-106); Magnesium 2.3 mg/dL (1.8-2.4); NT PRO-BNP 5 pg/mL (<125); Potassium 4.1 mmol/L (3.5-5.1); Protein, Total 8.1 g/dL (6.4-8.2); Sodium Level 138 mmol/L (136-145)
--- NOTE | 2021-07-11 01:58 | ER ---
Nurse's Notes [facility] Name: Chastity Otto Age: 31 yrs Sex: Female : 1990 Arrival Date: 07/10/2021 Time: 19:01 Bed 20 Private MD: Diagnosis: Chest pain, unspecified;Dyspnea, unspecified;Leukocytosis, nonspecific Presentation: 07/10 19:14 Chief complaint: Patient states: CP and SOB for 3-4 days. No fever. Had breast ll1 reduction last week, drains still in place. Coronavirus screen: Vaccine status: Patient reports receiving the 2nd dose of the covid vaccine. Client denies travel out of the [place] in the last 14 days. difficulty breathing, fatigue, muscle pain, shortness of breath, Client presents with at least one sign or symptom that may indicate coronavirus-19. Standard/surgical mask placed on the client. Ebola Screen: Patient denies travel to an Ebola-affected area in the 21 days before illness onset. Initial Sepsis Screen: Does the patient meet any 2 criteria? HR > 90 bpm. No. Patient's initial sepsis screen is negative. Does the patient have a suspected source of infection? Yes: Skin breakdown/wound. Risk Assessment: Do you want to hurt yourself or someone else? Patient reports no desire to harm self or others. Onset of symptoms was July 07, 2021. 19:14 Method Of Arrival: Ambulatory ll1 19:14 Acuity: ROSA 3 ll1 Historical: - Allergies: 19:17 Sulfa (Sulfonamide Antibiotics); ll1 - PMHx: 19:17 None; ll1 - PSHx: 19:17 breast reduction; ll1 - Immunization history:: Client reports receiving the 2nd dose of the Covid vaccine, Flu vaccine status is unknown. - Social history:: Smoking status: Patient denies any tobacco usage or history of. Screenin:39 Abuse screen: Denies threats or abuse. Nutritional screening: No deficits noted. ll3 Tuberculosis screening: No symptoms or risk factors identified. 07/11 00:25 Fall Risk IV access (20 points). Mental Status- Oriented to own ability (0 pts). Total ll3 Kessler Fall Scale indicates No Risk (0-24 pts). Assessment: 07/10 21:39 General: Appears in no apparent distress. uncomfortable, Behavior is calm, cooperative. ll3 Pain: Complains of pain in xiphoid area Pain does not radiate. Pain currently is 8 out of 10 on a pain scale. Quality of pain is described as pressure, Pain began Tuesday Is continuous, Alleviated by nothing. Neuro: Level of Consciousness is awake, alert, obeys commands, Oriented to person, place, time, situation. Cardiovascular: Patient's skin is warm and dry. Edema is absent. Parent/caregiver reports patient has had shortness of breath. Respiratory: Respiratory effort is even, unlabored, Respiratory pattern is regular, symmetrical. Derm: Parent/caregiver reports the patient having Breast reduction surgery on Tuesday last week, bilateral drains. 23:00 Reassessment: Patient appears in no apparent distress at this time. No changes from ll3 previously documented assessment. Patient and/or family updated on plan of care and expected duration. Pain level reassessed. Patient is alert, oriented x 3, equal unlabored respirations, skin warm/dry/pink. 23:59 Reassessment: Patient appears in no apparent distress at this time. No changes from ll3 previously documented assessment. Patient and/or family updated on plan of care and expected duration. Pain level reassessed. Patient is alert, oriented x 3, equal unlabored respirations, skin warm/dry/pink. 07/11 01:00 Reassessment: Patient appears in no apparent distress at this time. No changes from ll3 previously documented assessment. Patient and/or family updated on plan of care and expected duration. Pain level reassessed. Patient is alert, oriented x 3, equal unlabored respirations, skin warm/dry/pink. 02:10 Reassessment: Patient appears in no apparent distress at this time. No changes from ll3 previously documented assessment. Patient and/or family updated on plan of care and expected duration. Pain level reassessed. Patient is alert, oriented x 3, equal unlabored respirations, skin warm/dry/pink. 02:53 Reassessment: Patient appears in no apparent distress at this time. No changes from ll3 previously documented assessment. Patient and/or family updated on plan of care and expected duration. Pain level reassessed. Patient is alert, oriented x 3, equal unlabored respirations, skin warm/dry/pink. Vital Signs: 07/10 19:14 BP 138 / 110; Pulse 106; Resp 18; Temp 99.0; Pulse Ox 100% ; Weight 131.54 kg; Height 5 ll1 ft. 2 in. (157.48 cm); Pain 9/10; 21:44 BP 150 / 94; Pulse 104; Resp 20; Temp 98.2(O); Pulse Ox 100% on R/A; Pain 8/10; ll3 23:00 BP 135 / 92; Pulse 97; Resp 19; Pulse Ox 100% on R/A; ll3 23:59 BP 135 / 80; Pulse 101; Resp 20; Pulse Ox 100% on R/A; ll3 07/11 01:00 BP 115 / 82; Pulse 90; Resp 15; Pulse Ox 100% ; ll3 02:11 BP 127 / 86; Pulse 96; Resp 15; Pulse Ox 100% on R/A; ll3 02:53 BP 106 / 72; Pulse 91; Resp 15; Pulse Ox 100% on R/A; ll3 07/10 19:14 Body Mass Index 53.04 (131.54 kg, 157.48 cm) ll1 ED Course: 07/10 19:01 Patient arrived in ED. am2 19:17 Triage completed. ll1 19:17 Arm band placed on. EKG completed in triage. Results shown to MD. ll1 21:24 Martin Bell MD is Attending Physician. 7 21:39 Samantha Fang, RN is Primary Nurse. ll3 21:39 Patient has correct armband on for positive identification. Placed in gown. Bed in low ll3 position. Call light in reach. Side rails up X 1. Adult w/ patient. telemetry monitor on. Pulse ox on. NIBP on. 21:39 Patient maintains SpO2 saturation greater than 95% on room air. ll3 22:09 XRAY Chest (1 view) In Process Unspecified. EDMS 22:42 Basic Metabolic Panel Sent. ll3 22:56 US Extremity Venous W Compression Andre In Process Unspecified. EDMS 07/11 00:12 CT Chest For PE Angio In Process Unspecified. EDMS 00:25 Initial lab(s) drawn, by me, sent to lab. Urine collected: clean catch specimen, clear, ll3 EKG done, by ED staff, reviewed by Martin Bell MD. Inserted saline lock: 22 gauge in right antecubital area, using aseptic technique. Missed attempt(s): 22 gauge in left antecubital area. 02:11 No provider procedures requiring assistance completed. ll3 02:54 IV discontinued, intact, bleeding controlled, No redness/swelling at site. Pressure ll3 dressing applied. Administered Medications: 07/10 22:42 Drug: NS 0.9% 1000 ml Route: IV; Rate: 1000 ml; Site: right antecubital; ll3 07/11 02:12 Follow up: Response: No adverse reaction; IV Status: Completed infusion; IV Intake: ll3 1000ml 07/10 22:42 Drug: morphine 4 mg Route: IVP; Site: right antecubital; ll3 07/11 00:23 Follow up: Response: No adverse reaction ll3 07/10 22:42 Drug: Zofran (Ondansetron) 4 mg Route: IVP; Site: right antecubital; ll3 07/11 00:23 Follow up: Response: No adverse reaction ll3 Intake: 02:12 IV: 1000ml; Total: 1000ml. 3 Outcome: 01:57 Discharge ordered by . [facility] 02:54 Discharged to home ambulatory, with family. ll3 02:54 Condition: stable 02:54 Discharge instructions given to patient, Instructed on discharge instructions, follow up and referral plans. Demonstrated understanding of instructions, follow-up care. 03:09 Patient left the ED. 3 Signatures: Dispatcher [employer] EDLauren Lubin Lynsay, RN RN ll1 Martin Bell MD MD Samantha Okeefe RN RN ll3
--- NOTE | 2021-07-11 01:58 | EDPHYS ---
Physician Documentation [facility] Name: Chastity Otto Age: 31 yrs Sex: Female : 1990 Arrival Date: 07/10/2021 Time: 19:01 Bed 20 Private MD: ED Physician Martin Bell HPI: 07/10 21:47 This 31 yrs old Black Female presents to ER via Ambulatory with complaints of Chest mh7 Pain, Shortness Of Breath. 21:47 The patient or guardian reports chest pain that is located primarily in the substernal mh7 area. The pain does not radiate. Associated signs and symptoms: Pertinent positives: lower extremity pain, shortness of breath, Pertinent negatives: abdominal pain, cough, diaphoresis, dizziness, headache, lower extremity swelling, lightheadedness, nausea, near syncope, palpitations, recent travel, syncope, vomiting. The chest pain is described as sharp. Duration: The patient or guardian reports multiple episodes, that are intermittent, that wax and wane, with no pattern. Modifying factors: The symptoms are alleviated by nothing. the symptoms are aggravated by nothing. Severity of pain: At its worst the pain was moderate 3 day(s) ago, in the emergency department the pain has improved moderately. Patient reports having breast reduction surgery 1 week ago. She complains of chest pain and shortness of breath and bilateral calf pain. She denies any fever, cough, abdominal pain, nausea, vomiting.. Historical: - Allergies: 19:17 Sulfa (Sulfonamide Antibiotics); ll1 - PMHx: 19:17 None; ll1 - PSHx: 19:17 breast reduction; ll1 - Immunization history:: Client reports receiving the 2nd dose of the Covid vaccine, Flu vaccine status is unknown. - Social history:: Smoking status: Patient denies any tobacco usage or history of. ROS: 21:47 Constitutional: Negative for fever, chills, and weight loss, Eyes: Negative for injury, mh7 pain, redness, and discharge, ENT: Negative for injury, pain, and discharge, Neck: Negative for injury, pain, and swelling, Abdomen/GI: Negative for abdominal pain, nausea, vomiting, diarrhea, and constipation, Back: Negative for injury and pain, : Negative for injury, bleeding, discharge, and swelling, Skin: Negative for injury, rash, and discoloration, Neuro: Negative for headache, weakness, numbness, tingling, and seizure, Psych: Negative for depression, anxiety, suicide ideation, homicidal ideation, and hallucinations, Allergy/Immunology: Negative for hives, rash, and allergies, Endocrine: Negative for neck swelling, polydipsia, polyuria, polyphagia, and marked weight changes, Hematologic/Lymphatic: Negative for swollen nodes, abnormal bleeding, and unusual bruising. Exam: 21:47 Constitutional: This is a well developed, well nourished patient who is awake, alert, mh7 and in no acute distress. Head/Face: Normocephalic, atraumatic. Eyes: Pupils equal round and reactive to light, extra-ocular motions intact. Lids and lashes normal. Conjunctiva and sclera are non-icteric and not injected. Cornea within normal limits. Periorbital areas with no swelling, redness, or edema. Neck: Trachea midline, no thyromegaly or masses palpated, and no cervical lymphadenopathy. Supple, full range of motion without nuchal rigidity, or vertebral point tenderness. No Meningismus. Chest/axilla: Normal chest wall appearance and motion. Nontender with no deformity. No lesions are appreciated. 21:47 Respiratory: Lungs have equal breath sounds bilaterally, clear to auscultation and percussion. No rales, rhonchi or wheezes noted. No increased work of breathing, no retractions or nasal flaring. Abdomen/GI: Soft, non-tender, with normal bowel sounds. No distension or tympany. No guarding or rebound. No evidence of tenderness throughout. Back: No spinal tenderness. No costovertebral tenderness. Full range of motion. Skin: Warm, dry with normal turgor. Normal color with no rashes, no lesions, and no evidence of cellulitis. Neuro: Awake and alert, GCS 15, oriented to person, place, time, and situation. Cranial nerves II-XII grossly intact. Motor strength 5/5 in all extremities. Sensory grossly intact. Cerebellar exam normal. Normal gait. Psych: Awake, alert, with orientation to person, place and time. Behavior, mood, and affect are within normal limits. 21:47 Cardiovascular: Rate: tachycardic, Rhythm: regular, Pulses: no pulse deficits are appreciated, Heart sounds: normal, normal S1and S2, Edema: is not appreciated, JVD: is not appreciated. 21:47 MS/ Extremity: Pulses equal, no cyanosis. Neurovascular intact. Full, normal range mh7 of motion. Vital Signs: 19:14 BP 138 / 110; Pulse 106; Resp 18; Temp 99.0; Pulse Ox 100% ; Weight 131.54 kg; Height 5 ll1 ft. 2 in. (157.48 cm); Pain 9/10; 21:44 BP 150 / 94; Pulse 104; Resp 20; Temp 98.2(O); Pulse Ox 100% on R/A; Pain 8/10; ll3 23:00 BP 135 / 92; Pulse 97; Resp 19; Pulse Ox 100% on R/A; ll3 23:59 BP 135 / 80; Pulse 101; Resp 20; Pulse Ox 100% on R/A; ll3 07/11 01:00 BP 115 / 82; Pulse 90; Resp 15; Pulse Ox 100% ; ll3 02:11 BP 127 / 86; Pulse 96; Resp 15; Pulse Ox 100% on R/A; ll3 02:53 BP 106 / 72; Pulse 91; Resp 15; Pulse Ox 100% on R/A; ll3 07/10 19:14 Body Mass Index 53.04 (131.54 kg, 157.48 cm) ll1 MDM: 01:55 Differential diagnosis: acute myocardial infarction, acute pericarditis, anxiety, mh7 coronary artery disease chest wall pain, congestive heart failure costochondritis, gastritis, gastroesophageal reflux disease (GERD), myocarditis, pericarditis, pleurisy, pneumonia, pneumothorax, pulmonary embolus. HEART Score: History: Slightly Suspicious (0), ECG: Normal (0), Age: < or = 45 years (0), Risk Factors: No Risk Factors Known (0), Troponin: < or = 1 x Normal Limit (0), Total Score = 0. Data reviewed: vital signs, nurses notes, old medical records, lab test result(s), cardiac enzymes, CBC, electrolytes, urinalysis, UPT: negative EKG, radiologic studies, CT scan, plain films, ultrasound. Data interpreted: Pulse oximetry: on room air is 100 %. Interpretation: normal. Counseling: I had a detailed discussion with the patient and/or guardian regarding: the historical points, exam findings, and any diagnostic results supporting the discharge/admit diagnosis, lab results, radiology results, the need for outpatient follow up, to return to the emergency department if symptoms worsen or persist or if there are any questions or concerns that arise at home. Response to treatment: the patient's symptoms have resolved after treatment, the patient's blood pressure is in an acceptable range, mental status has returned to baseline, the patient no longer shows bradycardia, the patient is not short of breath, the patient is not tachycardic, the patient's pain is gone, the patient's temperature has normalized, patient is well hydrated. 01:57 Patient medically screened. [facility] :57 Refusal of service: The patient/guardian displays adequate decision making capability [facility] and despite a detailed discussion of alternatives, benefits, risks, and consequences refuses: COVID and flu testing. 07/10 21:47 Order name: Basic Metabolic Panel [facility] 07/10 21:47 Order name: CBC with Diff; Complete Time: 23:04 [facility] 07/10 21:47 Order name: LFT's; Complete Time: 23:10 [facility] 07/10 21:47 Order name: Magnesium; Complete Time: 23:10 [facility] 07/10 21:47 Order name: NT PRO-BNP; Complete Time: 23:10 [facility] 07/10 21:47 Order name: PT-INR; Complete Time: 23:04 [facility] 07/10 21:47 Order name: Troponin HS; Complete Time: 23:10 [facility] 07/10 21:47 Order name: XRAY Chest (1 view); Complete Time: 23:04 [facility] 07/10 21:47 Order name: US Extremity Venous W Compression Andre [facility] 07/10 21:48 Order name: Basic Metabolic Panel; Complete Time: 23:10 [facility] 07/10 22:50 Order name: Urine Dipstick-Ancillary; Complete Time: 23:04 [facility] 07/10 22:50 Order name: Urine --Ancillary (enter results); Complete Time: 23:04 [facility] 07/10 23:10 Order name: CT Chest For PE Angio [facility] 07/10 21:47 Order name: EKG; Complete Time: 21:48 [facility] 07/10 21:47 Order name: Cardiac monitoring; Complete Time: 21:49 [facility] 07/10 21:47 Order name: EKG - Nurse/Tech; Complete Time: 21:48 [facility] 07/10 21:47 Order name: IV Saline Lock; Complete Time: 22:42 [facility] 07/10 21:47 Order name: Labs collected and sent; Complete Time: 22:42 [facility] 07/10 21:47 Order name: O2 Per Protocol; Complete Time: 21:48 [facility] 07/10 21:47 Order name: O2 Sat Monitoring; Complete Time: 21:48 [facility] 07/10 21:47 Order name: Urine Dipstick-Ancillary (obtain specimen); Complete Time: 22:42 [facility] 07/10 21:47 Order name: Urine Test (obtain specimen); Complete Time: 22:50 [facility] Administered Medications: 07/10 22:42 Drug: NS 0.9% 1000 ml Route: IV; Rate: 1000 ml; Site: right antecubital; [facility] 07/11 02:12 Follow up: Response: No adverse reaction; IV Status: Completed infusion; IV Intake: 3 1000ml 07/10 22:42 Drug: morphine 4 mg Route: IVP; Site: right antecubital; [facility] 07/11 00:23 Follow up: Response: No adverse reaction [facility] 07/10 22:42 Drug: Zofran (Ondansetron) 4 mg Route: IVP; Site: right antecubital; 3 07/11 00:23 Follow up: Response: No adverse reaction [facility] Disposition Summary: 07/11/21 01:57 Discharge Ordered Location: Home [facility] Problem: new [facility] Symptoms: have improved [facility] Condition: Stable [facility] Diagnosis - Chest pain, unspecified [facility] - Dyspnea, unspecified 7 - Leukocytosis, nonspecific 7 Followup: [facility] - With: Private Physician - When: 1 - 2 days - Reason: Worsening of condition, Recheck today's complaints, Continuance of care, Re-evaluation by your physician Discharge Instructions: - Discharge Summary Sheet [facility] - Shortness of Breath, Adult, [id number] mh7 - Nonspecific Chest Pain, Adult, [id number] 7 - Leukocytosis [facility] Forms: - Medication Reconciliation Form [facility] - Thank You Letter 7 - Antibiotic Education 7 - Prescription Opioid Use [facility] Signatures: Dispatcher [employer] EDLouann Anna RN RN ll1 Martin Bell MD MD 7 Loubet, Lynsea, RN RN ll3
[2021-07-11 03:14] VITALS: O2SAT 100
[2021-07-11 03:16] VITALS: TEMP 98.2
[2021-07-11 03:21] VITALS: BP 106/72
--- NOTE | 2021-07-11 08:50 | RAD REPORT ---
EXAM DESCRIPTION: USExtrem Venous W Compress Bil07/10/2021 10:56 pm CLINICAL HISTORY: Leg pain COMPARISON: none FINDINGS: The common femoral, superficial femoral, popliteal and posterior tibial veins bilaterally are compressible and demonstrate augmentation. Doppler demonstrates good flow. IMPRESSION: No evidence of deep venous thrombosis involving either lower extremity.
--- NOTE | 2021-07-11 17:04 | RAD REPORT ---
EXAM DESCRIPTION: CT - Chest For Pe Angio - 07/11/2021 4:41 am CLINICAL HISTORY: 31 years, Female, Chest pain;SOB COMPARISON: Previous CT scan of the chest performed 02/25/2015 TECHNIQUE: Multiple transaxial tomograms of the chest were obtained from the lung apices through the lung bases utilizing 2 mm slice thickness at 2 mm interval reconstruction after the administration o f large bolus of IV contrast for complete opacification of the pulmonary arteries. Subsequent 3-D maximum intensity projection images were generated in the coronal and sagittal plane f or review. This exam was performed according to our departmental dose-optimization protocol, which includes auto mated exposure control, adjustment of the mA and/or kV according to patient size and/or use of iterat manjula reconstruction technique. FINDINGS: Several the images are compromised by breathing motion artifact limiting diagnostic value. The lungs parenchyma demonstrate clear. No masses, nodules and/or consolidations are identified. The trachea mainstem bronchus demonstrate to be normal. There is no significant pericardial or pleura l effusions. The thoracic aorta demonstrate to be unremarkable allowing for motion artifact. The heart is normal i n size. No evidence for right ventricular strain. There is no significant mediastinal and/or hilar lymphadenopathy. The axillary regions demonstrate to be clear. Pulmonary arteries demonstrate to be normal, no intraluminal defect are seen that would suggest pulmo nary embolus. The bone windows demonstrate no significant skeletal lesions. Noted are the presenc e of bilateral LINH drainage catheter corresponding to most likely recent bilateral breast surgery. No significant abnormal fluid collections identified. The visualized portions of the upper abdomen demonstrate slight decreased attenuation of the liver herman ggesting fatty infiltration. Small hiatal hernia. IMPRESSION: Several the images are compromised by breathing motion artifact limiting diagnostic valu e. No CT evidence for pulmonary embolism. Small hiatal hernia. Fatty infiltration of the liver. Bilateral LINH drainage catheters corresponding to most likely recent bilateral breast surgery. No sign ificant abnormal fluid collections identified. Electronically signed by: Girish Moore MD 07/11/2021 12:30 AM [employer] Due to temporary technical issues with the PACS/Fluency reporting system, reports are being signed by the in house radiologists without review as a courtesy to insure prompt reporting. The interpreting radiologist is fully responsible for the content of the report.
--- NOTE | 2021-07-13 08:08 | EKG ---
Test Date: 2021-07-10 Test Time: 19:17:19 [place]: MEASUREMENT RESULTS: Intervals: Rate: 100 AK: 130 QRSD: 80 QT: 344 QTc: 443 Powell: P: 14 AK: 130 QRS: 33 T: 22 INTERPRETIVE STATEMENTS: Normal sinus rhythm Normal ECG Compared to ECG 12/20/2017 21:44:42 No significant changes Electronically Signed On 07-13-21 08:03:24 HAZMAT TECHNICIAN by Paul Du
== END 2021-07-11 03:09 | disposition home or self-care (01) ==
LOC: ER 19:00
DX: R07.9 Chest pain, unspecified (principal); R06.00 Dyspnea, unspecified; D72.829 Elevated white blood cell count, unspecified; Z98.890 Other specified postprocedural states; Z53.29 Procedure and treatment not carried out because of patient's decision for other reasons; Z88.2 Allergy status to sulfonamides
CPT/HCPCS: 36415; 71045; 71275; 80048; 80076; 81003; 81025; 83735; 83880; 84484; 85025; 85610; 93005; 93970; 96361; 96374; 96375; 99285; J2405; J7030; Q9967

== ENCOUNTER 2022-05-08 12:58 | Emergency (ER) | payer SELFPAY ==
--- OUTSIDE RECORDS SUMMARY | 2022-05-08 13:02 | XMS REPORT | Continuity of Care Document ---
:1990 Author Organization [facility] t Address [address] [place] [address] Care Team Providers Name Role Phone Williams Barnett Primary Care Physician [phone] Payers Payer Name Policy Type Policy Number Effective Date Expiration Date S ource Problems This patient has no known problems. Allergies, Adverse Reactions, Alerts Allergy Allergy Status Severity Reaction(s) Onset Inactive Treating Comm ents Source Name Type Date Date Clinician Sulfa Propensi Active (Sulfona ty to 2-18 mide adverse 00:00: Antibiot reaction 00 ics) to drug Sulfa DA Active SV 2013-06 [facility] (Sulfona 1-11 [place] [facility] 00:[facility]: d Antibiot 00 [facility] Sulfa DA Active SV RASH, 2013-06 [facility] (Sulfona SWELLING 1-11 [place] [facility] FACE 00:00: d Antibiot 00 Medical ics) Center Medications Ordered Filled Start Stop Current Ordering Indication Dosage Frequency Signature Comments Components Source Medication Medication Date Date Medication? Clinician (SIG) Name Name Dose No Unknown - 00:00: 00 TAKE BY No MOUTH - DIRECTED ON 00:00: INSIDE OF 00 PACKAGE TAKE BY No MOUTH - DIRECTED ON 00:00: INSIDE OF 00 PACKAGE DISSOLVE 1 2022-0 No TABLET IN 6-29 MOUTH EVERY 00:00: 6 TO 8 00 HOURS NEEDED FOR NAUSEA Dose 2021-0 No Unknown 6 00:00: 00 Dose 2021-0 No Unknown 12-16 00:00: 00 TAKE 1 2021-0 No TABLET BY 6-29 MOUTH TWICE 00:00: DAILY 00 TAKE BY 2021-0 No MOUTH 6-29 DIRECTED ON 00:00: INSIDE OF 00 PACKAGE TAKE 1 2021-0 No TABLET BY 6-29 MOUTH TWICE 00:00: DAILY 00 TAKE 1 2021-0 No TABLET BY 6-29 MOUTH EVERY 00:00: 6 TO 8 00 HOURS NEEDED cephalexin 2020-1 No 2mg 500 mg 1-17 tablet 00:00: 00 Diflucan 2020-0 No 1mg 150 mg 7-30 tablet 00:00: 00 Flagyl 500 2020-0 No 1mg mg tablet 6 00:00: 00 ibuprofen 2020-0 No 1mg 400 mg 6-22 tablet 00:00: 00 cetirizine 2020-0 No 1mg 10 mg 3-15 tablet 00:00: 00 amlodipine 2020-0 No 1mg 5 mg tablet 3-08 00:00: 00 amlodipine 2020-0 No 1mg 5 mg tablet 1-04 00:00: 00 amlodipine 2019-1 No 1mg 10 mg 2-20 tablet 00:00: 00 amlodipine 2019-1 No 1mg 5 mg tablet 1-19 00:00: 00 amoxicillin 2019-1 No 1mg 500 mg 0-07 tablet 00:00: 00 amlodipine 2019-0 No 1mg 5 mg tablet 9-24 00:00: 00 metoprolol 2019-0 No 1mg succinate 9-17 ER 25 mg 00:00: tablet,exte 00 nded release 24 hr amlodipine 2019-0 No 1mg 2.5 mg 9-03 tablet 00:00: 00 Diflucan 2018-0 No 1mg 150 mg 9-27 tablet 00:00: 00 nitrofurant 2018-0 No 1mg oin 8-15 monohydrate 00:00: /macrocryst 00 als 100 mg capsule Medrol 4 mg 2017-0 No mg tablet 02-23 00:00: 00 Claritin 10 2016-0 No 1mg mg tablet 02-23 00:00: 00 amoxicillin 2017-0 No 1mg 500 mg 8-21 tablet 00:00: 00 triamcinolo 2015-0 No 1% ne 4-15 acetonide 00:00: 0.1 % 00 topical ointment hydroxyzine 0 No 1mg HCl 50 mg 4-15 tablet 00:00: 00 Keflex 500 2015-0 No 1mg mg capsule 15 00:00: 00 amoxicillin 2015-0 No 1mg 500 mg 1-11 tablet 00:00: 00 Vital Signs Vital Name Observation Time Observation Value Comments Source BP Systolic 2022-05-04 09:44:00 139 mm[Hg] BP Diastolic 2022-05-04 09:44:00 94 mm[Hg] Weight Measured 2022-05-04 09:44:00 297.80 pounds Height Measured 2022-05-04 09:44:00 62.00 inches Body Temperature 2022-05-04 09:44:00 97.30 degrees Heart Rate 2022-05-04 09:44:00 93.00 /min Respiratory Rate 2022-05-04 09:44:00 BP Systolic 2021-05-06 09:32:00 147 mm[Hg] BP Diastolic 2021-05-06 09:32:00 91 mm[Hg] Weight Measured 2021-05-06 09:32:00 295.20 pounds Height Measured 2021-05-06 09:32:00 62.00 inches Body Temperature 2021-05-06 09:32:00 98.30 degrees Heart Rate 2021-05-06 09:32:00 79.00 /min Respiratory Rate 2021-05-06 09:32:00 BP Systolic 2021-01-16 09:16:00 164 mm[Hg] BP Diastolic 2021-01-16 09:16:00 86 mm[Hg] Weight Measured 2021-01-16 09:16:00 296.60 pounds Height Measured 2021-01-16 09:16:00 62.00 inches Body Temperature 2021-01-16 09:16:00 98.00 degrees Heart Rate 2021-01-16 09:16:00 82.00 /min Respiratory Rate 2021-01-16 09:16:00 BP Systolic 2020-12-23 15:21:00 133 mm[Hg] BP Diastolic 2020-12-23 15:21:00 90 mm[Hg] Weight Measured 2020-12-23 15:21:00 293.80 pounds Height Measured 2020-12-23 15:21:00 62.00 inches Body Temperature 2020-12-23 15:21:00 98.00 degrees Heart Rate 2020-12-23 15:21:00 72.00 /min Respiratory Rate 2020-12-23 15:21:00 BP Systolic 2020-12-09 09:52:00 150 mm[Hg] BP Diastolic 2020-12-09 09:52:00 98 mm[Hg] Weight Measured 2020-12-09 09:52:00 291.60 pounds Height Measured 2020-12-09 09:52:00 62.00 inches Body Temperature 2020-12-09 09:52:00 98.30 degrees Heart Rate 2020-12-09 09:52:00 77.00 /min Respiratory Rate 2020-12-09 09:52:00 17.00 /min BP Systolic 2020-03-06 17:54:00 154 mm[Hg] BP Diastolic 2020-03-06 17:54:00 106 mm[Hg] Weight Measured 2020-03-06 17:54:00 287.80 pounds Height Measured 2020-03-06 17:54:00 62.00 inches Body Temperature 2020-03-06 17:54:00 98.30 degrees Heart Rate 2020-03-06 17:54:00 106.00 /min Respiratory Rate 2020-03-06 17:54:00 16.00 /min BP Systolic 2020-02-21 17:38:00 148 mm[Hg] BP Diastolic 2020-02-21 17:38:00 99 mm[Hg] Weight Measured 2020-02-21 17:38:00 286.80 pounds Height Measured 2020-02-21 17:38:00 62.00 inches Body Temperature 2020-02-21 17:38:00 97.70 degrees Heart Rate 2020-02-21 17:38:00 90.00 /min Respiratory Rate 2020-02-21 17:38:00 17.00 /min BP Systolic 2020-02-14 15:43:00 149 mm[Hg] BP Diastolic 2020-02-14 15:43:00 94 mm[Hg] Weight Measured 2020-02-14 15:43:00 285.00 pounds Height Measured 2020-02-14 15:43:00 62.00 inches Body Temperature 2020-02-14 15:43:00 98.30 degrees Heart Rate 2020-02-14 15:43:00 72.00 /min Respiratory Rate 2020-02-14 15:43:00 16.00 /min BP Systolic 2018-03-16 11:12:00 135 mm[Hg] BP Diastolic 2018-03-16 11:12:00 87 mm[Hg] Weight Measured 2018-03-16 11:12:00 269.80 pounds Height Measured 2018-03-16 11:12:00 62.00 inches Body Temperature 2018-03-16 11:12:00 98.50 degrees Heart Rate 2018-03-16 11:12:00 76.00 /min Respiratory Rate 2018-03-16 11:12:00 16.00 /min BP Systolic 2018-02-01 11:35:00 130 mm[Hg] BP Diastolic 2018-02-01 11:35:00 88 mm[Hg] Weight Measured 2018-02-01 11:35:00 272.80 pounds Height Measured 2018-02-01 11:35:00 62.00 inches Body Temperature 2018-02-01 11:35:00 98.30 degrees Heart Rate 2018-02-01 11:35:00 73.00 /min Respiratory Rate 2018-02-01 11:35:00 16.00 /min Procedures Procedure Date / Time Performed Performing Clinician [facility] e [address] Colposcopy Cervix Bx Cervix 2020-12-23 00:00:00 endocrv Curtg Plan of Care Planned Activity Planned Date Details Comments Source Goal Plan of Care Note [code = 30411-3] Goal Plan of Care Note [code = 91143-6] Goal Plan of Care Note [code = 35272-7] Goal Plan of Care Note [code = 83597-6] Goal Plan of Care Note [code = 58743-1] Goal Plan of Care Note [code = 26136-9] Goal Plan of Care Note [code = 20286-9] Goal Plan of Care Note [code = 15736-9] Goal Plan of Care Note [code = 72557-8] Goal Plan of Care Note [code = 35508-1] Goal Plan of Care Note [code = 11360-2] Goal Plan of Care Note [code = 98928-8] Goal Plan of Care Note [code = 16608-8] Goal Plan of Care Note [code = 24430-6] Goal Plan of Care Note [code = 69968-5] Goal Plan of Care Note [code = 47029-6] Goal Plan of Care Note [code = 78764-6] Goal Plan of Care Note [code = 12988-4] Goal Plan of Care Note [code = 86984-0] Goal Plan of Care Note [code = 78159-0] Goal Plan of Care Note [code = 55684-2] Goal Plan of Care Note [code = 78998-6] Goal Plan of Care Note [code = 49862-3] Goal Plan of Care Note [code = 48072-3] Goal Plan of Care Note [code = 02350-1] Goal Plan of Care Note [code = 04735-4] Goal Plan of Care Note [code = 37917-9] Goal Plan of Care Note [code = 62500-5] Goal Plan of Care Note [code = 73997-5] Goal Plan of Care Note [code = 87241-3] Goal Plan of Care Note [code = 89295-6] Goal Plan of Care Note [code = 78640-6] Goal Plan of Care Note [code = 82475-8] Goal Plan of Care Note [code = 11335-6] Goal Plan of Care Note [code = 67086-8] Goal Plan of Care Note [code = 55967-0] Goal Plan of Care Note [code = 14507-9] Goal Plan of Care Note [code = 96119-8] Goal Plan of Care Note [code = 93512-8] Goal Plan of Care Note [code = 82525-9] Goal Plan of Care Note [code = 02526-5] Goal Plan of Care Note [code = 15215-3] Goal Plan of Care Note [code = 43921-8] Goal Plan of Care Note [code = 46407-4] Encounters Start End Encounter Admission Attending Care Care Encounter Source Date/Time Date/Time Type Type Clinicians Facility Department ID 2020-06-17 Inpatient [facility] [id number] [facility] 18:07:00 07 [facility] 2022-05-04 2022-05-04 Outpatient [facility] JOSE [id number] Anahi Lynos 09:33:11 09:33:11 1115 F Praneeth 2022-05-04 2022-05-04 Outpatient [id number] 00:00:00 00:00:00 Visit [id number] Results Test Description Test Time Test Comments Results Result Comments Source HIV 1/2 4TH GEN, RFLX CONF 2022-05-05 00:00:00 Test Item Value Reference Range Interpretation Comme nts HIV 1/2 4TH GEN, RFLX CONF (test code = 3514) NON-REACTIVE HIV 1/2 4TH GEN, RFLX [id number] 00:00:00 Test Item Value Reference Range Interpretation Comments HIV 1/2 4TH GEN, RFLX CONF (test NON-REACTIVE code = 3514) ACUTE HEPATITIS [id number] 00:00:00 Test Item Value Reference Range Interpretation Comments HEPATITIS A IgM (test code = NON-REACTIVE 82886) HEPATITIS B CORE IgM (test code NON-REACTIVE = 4644) HEPATITIS B SURF AG (test code = NON-REACTIVE 2739) HEPATITIS C ANTIBODY (test code NON-REACTIVE = 4675) INTERPRETATION HEPATITIS A: (NOTE) (test code = 2552) INTERPRETATION HEPATITIS B: (NOTE) (test code = 04348) INTERPRETATION HEPATITIS C: (NOTE) (test code = 71421) ACUTE HEPATITIS [id number] 00:00:00 Test Item Value Reference Range Interpretation Comments HEPATITIS A IgM (test code = NON-REACTIVE 26077) HEPATITIS B CORE IgM (test code NON-REACTIVE = 4644) HEPATITIS B SURF AG (test code = NON-REACTIVE 2739) HEPATITIS C ANTIBODY (test code NON-REACTIVE = 4675) INTERPRETATION HEPATITIS A: (NOTE) (test code = 2552) INTERPRETATION HEPATITIS B: (NOTE) (test code = 66926) INTERPRETATION HEPATITIS C: (NOTE) (test code = 88803) [id number] 00:00:00 Test Item Value Reference Range Interpretation Comments RPR RESULT (test code = NON-REACTIVE 3501) RPR TITER (test code = 3500) NOT INDIC. TITER [id number] 00:00:00 Test Item Value Reference Range Interpretation Comments RPR RESULT (test code = NON-REACTIVE 3501) RPR TITER (test code = 3500) NOT INDIC. TITER [id number] 00:00:00 Test Item Value Reference Range Interpretation Comments RPR RESULT (test code = NON-REACTIVE 3501) RPR TITER (test code = 3500) NOT INDIC. TITER SARS-CoV-2 (COVID-19) by RT-PCR (HIGH RISK)2021-02-12 00:00:00 Test Item Value Reference Range Interpretation Comments SARS-CoV-2 INTERPRETATION (test NEGATIVE code = 43547) SOURCE (test code = 58457) NOT SPECIFIED SARS-CoV-2 (COVID-19) by RT-PCR (HIGH RISK)2021-02-12 00:00:00 Test Item Value Reference Range Interpretation Comments SARS-CoV-2 INTERPRETATION (test NEGATIVE code = 51447) SOURCE (test code = 48457) NOT SPECIFIED VAGINAL PATHOGENS DNA [id number] 00:00:00 Test Item Value Reference Range Interpretation Comments ANNETTA SPECIES (test code = 77281) NEGATIVE G. VAGINALIS (test code = 03185) NEGATIVE T. VAGINALIS (test code = 48187) NEGATIVE VAGINAL PATHOGENS DNA [id number] 00:00:00 Test Item Value Reference Range Interpretation Comments ANNETTA SPECIES (test code = 76919) NEGATIVE G. VAGINALIS (test code = 52856) NEGATIVE T. VAGINALIS (test code = 25220) NEGATIVE SURGICAL PATHOLOGY [id number] 00:00:00 Test Item Value Reference Range Interpretation Comments DIAGNOSIS: (test code = 8200) (NOTE) COMMENTS: (test code = 8205) (NOTE) MICROSCOPIC DESCRIPTION: (test code = (NOTE) 8210) CLINICAL DATA: (test code = 8401) (NOTE) GROSS DESCRIPTION: (test code = 8220) (NOTE) PATHOLOGIST: (test code = 8250) (NOTE) CPT: (test code = 8400) (NOTE) SURGICAL PATHOLOGY [id number] 00:00:00 Test Item Value Reference Range Interpretation Comments DIAGNOSIS: (test code = 8200) (NOTE) COMMENTS: (test code = 8205) (NOTE) MICROSCOPIC DESCRIPTION: (test code = (NOTE) 8210) CLINICAL DATA: (test code = 8401) (NOTE) GROSS DESCRIPTION: (test code = 8220) (NOTE) PATHOLOGIST: (test code = 8250) (NOTE) CPT: (test code = 8400) (NOTE) VAGINAL PATHOGENS DNA [id number] 00:00:00 Test Item Value Reference Range Interpretation Comments ANNETTA SPECIES (test code = ) NEGATIVE G. VAGINALIS (test code = 30567) NEGATIVE T. VAGINALIS (test code = 12061) NEGATIVE VAGINAL PATHOGENS DNA [id number] 00:00:00 Test Item Value Reference Range Interpretation Comments ANNETTA SPECIES (test code = ) NEGATIVE G. VAGINALIS (test code = 99365) NEGATIVE T. VAGINALIS (test code = 01606) NEGATIVE PAP TEST, THINPREP, [id number] 00:00:00 Test Item Value Reference Range Interpretation Comments SOURCE: (test code = Endocervical 8001) SLIDES: (test code = 1 8011) LMP: (test code = 8021) 11/18/2020 SPECIMEN ADEQUACY: (test (NOTE) code = 42462) INTERPRETATION: (test LSIL/EPITH. code = 72118) ABNORMALITY; SEE BELOW ELECTRONICS INSTALLER: (test [place] code = 8101) SEBASTIAN Palomares(ASCP)IAC PATHOLOGIST Otilio Solitario M.D. INTERPRETATION BY: (test code = 8122) LOCATION: (test code = (NOTE) 17347) CPT: (test code = 8140) (NOTE) PAP TEST, THINPREP, [id number] 00:00:00 Test Item Value Reference Range Interpretation Comments SOURCE: (test code = Endocervical 8001) SLIDES: (test code = 1 8011) LMP: (test code = 8021) 11/18/2020 SPECIMEN ADEQUACY: (test (NOTE) code = 57212) INTERPRETATION: (test LSIL/EPITH. code = 21333) ABNORMALITY; SEE BELOW ELECTRONICS INSTALLER: (test [place] code = 8101) SEBATSIAN Palomares(ASCP)[facility] PATHOLOGIST Otilio Solitario M.D. INTERPRETATION BY: (test code = 8122) LOCATION: (test code = (NOTE) 39191) CPT: (test code = 8140) (NOTE) HIV AB/AG COMBO RFLX [id number] 00:00:00 Test Item Value Reference Range Interpretation Comments HIV 1/2 4TH GEN, RFLX CONF (test NON-REACTIVE code = 3514) HIV AB/AG COMBO RFLX [id number] 00:00:00 Test Item Value Reference Range Interpretation Comments HIV 1/2 4TH GEN, RFLX CONF (test NON-REACTIVE code = 3514) GC AND CHLAMYDIA AMPLIFIED, [id number] 00:00:00 Test Item Value Reference Range Interpretation Comments GONORRHEA, TMA (test code = 64691) NEGATIVE CHLAMYDIA, TMA (test code = 10058) NEGATIVE GC AND CHLAMYDIA AMPLIFIED, [id number] 00:00:00 Test Item Value Reference Range Interpretation Comments GONORRHEA, TMA (test code = 01982) NEGATIVE CHLAMYDIA, TMA (test code = 10207) NEGATIVE CBC W/AUTO [id number] 00:00:00 Test Item Value Reference Range Interpretation Comments WBC (test code = 1001) 9.8 K/UL RBC (test code = 1002) 4.75 M/UL HEMOGLOBIN (test code = 1003) 13.2 G/DL HEMATOCRIT (test code = 1004) 38.8 % MCV (test code = 1005) 81.7 fL MCH (test code = 1006) 27.8 PG MCHC (test code = 1007) 34.0 G/DL RDW (test code = 1038) 13.1 % NEUTROPHILS (test code = 1008) 62.9 % LYMPHOCYTES (test code = 1010) 28.0 % MONOCYTES (test code = 1011) 5.2 % EOSINOPHILS (test code = 1012) 3.4 % BASOPHILS (test code = 1013) 0.2 % IMMATURE GRANULOCYTES (test 0.3 % code = 1036) NUCLEATED RBCS (test code = 0.0 /100WBC'S 1065) PLATELET COUNT (test code = 381 K/UL 1015) ABSOLUTE NEUTROPHILS (test code 6.16 K/UL = 1066) ABSOLUTE LYMPHOCYTES (test code 2.74 K/UL = 1067) ABSOLUTE MONOCYTES (test code = 0.51 K/UL 1068) ABSOLUTE EOSINOPHILS (test code 0.33 K/UL = 1040) ABSOLUTE BASOPHILS (test code = 0.02 K/UL 1069) ABS IMMATURE GRANULOCYTES (test 0.03 K/UL code = 1020) ABS NUCLEATED RBCS (test code = 0.00 K/UL 23393) VAGINAL PATHOGENS DNA [id number] 00:00:00 Test Item Value Reference Range Interpretation Comments ANNETTA SPECIES (test code = ) NEGATIVE G. VAGINALIS (test code = ) POSITIVE T. VAGINALIS (test code = ) NEGATIVE VAGINAL PATHOGENS DNA [id number] 00:00:00 Test Item Value Reference Range Interpretation Comments ANNETTA SPECIES (test code = ) NEGATIVE G. VAGINALIS (test code = 03332) POSITIVE T. VAGINALIS (test code = ) NEGATIVE HPV HIGH RISK WITH GENOTYPE, [id number] 00:00:00 Test Item Value Reference Range Interpretation Comments HPV HIGH RISK INTERP (test code = POSITIVE 55799) HPV 16 (test code = 93430) NEGATIVE HPV 18 (test code = 93825) NEGATIVE HPV, HR, OTHER GENOTYPES (test code POSITIVE = 19939) HPV HIGH RISK WITH GENOTYPE, [id number] 00:00:00 Test Item Value Reference Range Interpretation Comments HPV HIGH RISK INTERP (test code = POSITIVE 42274) HPV 16 (test code = 21494) NEGATIVE HPV 18 (test code = 46758) NEGATIVE HPV, HR, OTHER GENOTYPES (test code POSITIVE = 21407) [id number] 00:00:00 Test Item Value Reference Range Interpretation Comments RPR RESULT (test code = NON-REACTIVE 3501) RPR TITER (test code = 3500) NOT INDIC. TITER [id number] 00:00:00 Test Item Value Reference Range Interpretation Comments RPR RESULT (test code = NON-REACTIVE 3501) RPR TITER (test code = 3500) NOT INDIC. TITER [id number] 00:00:00 Test Item Value Reference Range Interpretation Comments RPR RESULT (test code = NON-REACTIVE 3501) RPR TITER (test code = 3500) NOT INDIC. TITER CBC W/AUTO [id number] 00:00:00 Test Item Value Reference Range Interpretation Comments WBC (test code = 1001) 9.8 K/UL RBC (test code = 1002) 4.75 M/UL HEMOGLOBIN (test code = 1003) 13.2 G/DL HEMATOCRIT (test code = 1004) 38.8 % MCV (test code = 1005) 81.7 fL MCH (test code = 1006) 27.8 PG MCHC (test code = 1007) 34.0 G/DL RDW (test code = 1038) 13.1 % NEUTROPHILS (test code = 1008) 62.9 % LYMPHOCYTES (test code = 1010) 28.0 % MONOCYTES (test code = 1011) 5.2 % EOSINOPHILS (test code = 1012) 3.4 % BASOPHILS (test code = 1013) 0.2 % IMMATURE GRANULOCYTES (test 0.3 % code = 1036) NUCLEATED RBCS (test code = 0.0 /100WBC'S 1065) PLATELET COUNT (test code = 381 K/UL 1015) ABSOLUTE NEUTROPHILS (test code 6.16 K/UL = 1066) ABSOLUTE LYMPHOCYTES (test code 2.74 K/UL = 1067) ABSOLUTE MONOCYTES (test code = 0.51 K/UL 1068) ABSOLUTE EOSINOPHILS (test code 0.33 K/UL = 1040) ABSOLUTE BASOPHILS (test code = 0.02 K/UL 1069) ABS IMMATURE GRANULOCYTES (test 0.03 K/UL code = 1020) ABS NUCLEATED RBCS (test code = 0.00 K/UL 93311) CBC W/AUTO [id number] 00:00:00 Test Item Value Reference Range Interpretation Comments WBC (test code = 1001) 9.8 K/UL RBC (test code = 1002) 4.75 M/UL HEMOGLOBIN (test code = 1003) 13.2 G/DL HEMATOCRIT (test code = 1004) 38.8 % MCV (test code = 1005) 81.7 fL MCH (test code = 1006) 27.8 PG MCHC (test code = 1007) 34.0 G/DL RDW (test code = 1038) 13.1 % NEUTROPHILS (test code = 1008) 62.9 % LYMPHOCYTES (test code = 1010) 28.0 % MONOCYTES (test code = 1011) 5.2 % EOSINOPHILS (test code = 1012) 3.4 % BASOPHILS (test code = 1013) 0.2 % IMMATURE GRANULOCYTES (test 0.3 % code = 1036) NUCLEATED RBCS (test code = 0.0 /100WBC'S 1065) PLATELET COUNT (test code = 381 K/UL 1015) ABSOLUTE NEUTROPHILS (test code 6.16 K/UL = 1066) ABSOLUTE LYMPHOCYTES (test code 2.74 K/UL = 1067) ABSOLUTE MONOCYTES (test code = 0.51 K/UL 1068) ABSOLUTE EOSINOPHILS (test code 0.33 K/UL = 1040) ABSOLUTE BASOPHILS (test code = 0.02 K/UL 1069) ABS IMMATURE GRANULOCYTES (test 0.03 K/UL code = 1020) ABS NUCLEATED RBCS (test code = 0.00 K/UL 52292) SARS-CoV-2 (COVID-19) by RT-PCR (HIGH RISK)2020-09-04 00:00:00 Test Item Value Reference Range Interpretation Comments SARS-CoV-2 INTERPRETATION (test NEGATIVE code = 94798) SOURCE (test code = 78306) NOT SPECIFIED SARS-CoV-2 (COVID-19) by RT-PCR (HIGH RISK)2020-09-04 00:00:00 Test Item Value Reference Range Interpretation Comments SARS-CoV-2 INTERPRETATION (test NEGATIVE code = 87752) SOURCE (test code = 38748) NOT SPECIFIED BASIC METABOLIC [id number] 18:41:00 Test Item Value Reference Range Interpretation Comments SODIUM (test code = NA) 137 mmol/L 134-147 N POTASSIUM (test code = 3.6 mmol/L 3.4-5.0 N K) CHLORIDE (test code = 104 mmol/L 100-108 N CL) CARBON DIOXIDE (test 29 mmol/L 21-32 N code = CO2) ANION GAP (test code = 4.0 GAP calc 4.0-15.0 N GAP) GLUCOSE (test code = 119 MG/DL 70-110 H GLU) BLOOD UREA NITROGEN 11 MG/DL 7-18 N (test code = BUN) GLOMERULAR FILTRATION >=60 max estimate >60 RATE (test code = GFR) estGFR CREATININE (test code = 0.9 MG/DL 0.6-1.0 N CREAT) CALCIUM (test code = CA) 8.9 MG/DL 8.5-10.1 N Completed by Nursing: NOCREATINE KINASE (CK)2020-06-17 18:41:00 Test Item Value Reference Range Interpretation Comments CREATINE KINASE (CK) (test code = 136 Unit/L 26-192 N CK) Completed by Nursing: [id number] 18:41:00 Test Item Value Reference Range Interpretation [...] Completed by Nursing: NO- XR CHEST 1 [id number] 18:36:00 [facility] 1990 Sex: F Name: JULISSA CARR [facility] : 1990 Age/S: 30 / F [id number] Unit #: [id number] Loc: [place] [address] Phys: Candy Castro MD Acct: [id number] Dis Date: Status: REG ER PHONE #: [phone] Exam Date: 06/17/2020 2584 FAX #: Reason: chest pain EXAMS: CPT:[id number] XR CHEST 1 V 81111 Fluoro Time: DAP (Gy m2): Air Kerma (mGy): EXAM: CHEST ONE VIEW INDICAT ION: CHEST PAIN LOCATION: B2 COMPARISON: None available TECHNIQUE: AP view of the chest FINDINGS: The heart size is normal. The lungs are clear bilaterally. The pulmonary vasculature is normal. No pneumothorax or pleural effusion is identified. The osseous structures are normal. IMPRESSION: No acute c ardiopulmonary process. at 1836 Reported and signed by: Soniya Armstrong M.D. CC: Candy Castro MD; Natalia TRUJILLO PAGE 1 Signed Report Name: JULISSA CARR [facility] : 1990 Age/S: 30 / F [address] Unit #: [id number] Loc: [place] [address] Phys: Candy Castro MD Acct: [id number] DisDate: Status: REG ER PHONE #: [phone] Exam Date: 06/17/20201826 FAX #: Reason: chest pain EXAMS: CPT: [id number] XR CHEST 1 V 88640 Fluoro Time: DAP (Gy m2): Air Kerma (mGy): (Continued) Technologist: Sparkle Breaux, RT(R)(CT) Trnscb Date/Time: 06/17/2020 (1835) 16 Orig Print D/T: S: 06/17/2020 (1838) PAGE 2 Signed ReportCBC W/O [id number] 18:23:00 Test Item Value Reference Range Interpretation [...] code = 9.70 fL 7.0-10.5 N MPV) SARS-CoV-2 (COVID-19) by RT-PCR (HIGH RISK)2020-06-08 00:00:00 Test Item Value Reference Range Interpretation Comments SARS-CoV-2 INTERPRETATION (test NEGATIVE code = 97150) SOURCE (test code = 89617) NOT SPECIFIED SARS-CoV-2 (COVID-19) by RT-PCR (HIGH RISK)2020-06-08 00:00:00 Test Item Value Reference Range Interpretation Comments SARS-CoV-2 INTERPRETATION (test NEGATIVE code = 53918) SOURCE (test code = 33902) NOT SPECIFIED SARS-CoV-2 (COVID-19) by RT-PCR (HIGH RISK)2020-03-29 00:00:00 Test Item Value Reference Range Interpretation Comments SARS-CoV-2 INTERPRETATION Negative (test code = 15161) SOURCE (test code = 10904) Nasal_Swab_in_VTM__ UTM PAP TEST, THINPREP, [id number] 00:00:00 Test Item Value Reference Range Interpretation Comments SOURCE: (test code = 8001) Cervical/Endocervic al SLIDES: (test code = 8011) 1 LMP: (test code = 8021) 01/26/2020 SPECIMEN ADEQUACY: (test (NOTE) code = 13925) INTERPRETATION: (test code ASCUS/EPITH. = 07095) ABNORMALITY; SEE BELOW ELECTRONICS INSTALLER: (test [place] code = 8101) SEBASTIAN Palomares(ASCP)IAC QC TECHNOLOGIST: (test Nabila Epps code = 8111) PATHOLOGIST INTERPRETATION [place] BY: (test code = 8122) LOCATION: (test code = (NOTE) 10604) CPT: (test code = 8140) (NOTE) PAP TEST, THINPREP, [id number] 00:00:00 Test Item Value Reference Range Interpretation Comments SOURCE: (test code = 8001) Cervical/Endocervic al SLIDES: (test code = 8011) 1 LMP: (test code = 8021) 01/26/2020 SPECIMEN ADEQUACY: (test (NOTE) code = 59358) INTERPRETATION: (test code ASCUS/EPITH. = 01239) ABNORMALITY; SEE BELOW ELECTRONICS INSTALLER: (test [place] code = 8101) SEBASTIAN Palomares(ASCP)[facility] QC TECHNOLOGIST: (test Nabila [facility] code = 8111) PATHOLOGIST INTERPRETATION [place] BY: (test code = 8122) LOCATION: (test code = (NOTE) 08439) CPT: (test code = 8140) (NOTE) HPV HIGH RISK WITH GENOTYPE, [id number] 00:00:00 Test Item Value Reference Range Interpretation Comments HPV HIGH RISK INTERP (test POSITIVE code = 64931) HPV 16 (test code = 10127) NEGATIVE HPV 18 (test code = 89699) NEGATIVE HPV, HR, OTHER GENOTYPES TEST NOT PERFORMED (test code = 87166) HPV HIGH RISK WITH GENOTYPE, [id number] 00:00:00 Test Item Value Reference Range Interpretation Comments HPV HIGH RISK INTERP (test POSITIVE code = 59116) HPV 16 (test code = 32056) NEGATIVE HPV 18 (test code = 21809) NEGATIVE HPV, HR, OTHER GENOTYPES TEST NOT PERFORMED (test code = 65279) HEMOGLOBIN [id number] 00:00:00 Test Item Value Reference Range Interpretation Comments HEMOGLOBIN A1c (test code = 35356) 5.7 % HEMOGLOBIN [id number] 00:00:00 Test Item Value Reference Range Interpretation Comments HEMOGLOBIN A1c (test code = 21355) 5.7 % HEMOGLOBIN [id number] 00:00:00 Test Item Value Reference Range Interpretation Comments HEMOGLOBIN A1c (test code = 07796) 5.7 % LIPID [id number] 00:00:00 Test Item Value Reference Range Interpretation Comments CHOLESTEROL (test code = 2210) 163 MG/DL TRIGLYCERIDES (test code = 2232) 204 MG/DL HDL CHOLESTEROL (test code = 2220) 48 MG/DL CALC LDL CHOL (test code = 2237) 85 MG/DL RISK RATIO LDL/HDL (test code = 1.77 RATIO 2238) LIPID [id number] 00:00:00 Test Item Value Reference Range Interpretation Comments CHOLESTEROL (test code = 2210) 163 MG/DL TRIGLYCERIDES (test code = 2232) 204 MG/DL HDL CHOLESTEROL (test code = 2220) 48 MG/DL CALC LDL CHOL (test code = 2237) 85 MG/DL RISK RATIO LDL/HDL (test code = 1.77 RATIO 2238) COMPREHENSIVE METABOLIC [id number] 00:00:00 Test Item Value Reference Range Interpretation Comments GLUCOSE (test code = 2217) 128 MG/DL BUN (test code = 2208) 10 MG/DL CREATININE (test code = 2214) 0.80 MG/DL eGFR AMER. (test code 113 ML/MIN/1.73 = 99280) eGFR NON- AMER. (test 98 ML/MIN/1.73 code = 99904) CALC BUN/CREAT (test code = 13 RATIO 2235) SODIUM (test code = 2231) 140 MEQ/L POTASSIUM (test code = 2228) 4.2 MEQ/L CHLORIDE (test code = 2215) 104 MEQ/L CARBON DIOXIDE (test code = 27 MEQ/L 220) CALCIUM (test code = 2209) 9.5 MG/DL PROTEIN, TOTAL (test code = 7.2 G/DL 222) ALBUMIN (test code = 2201) 4.2 G/DL CALC GLOBULIN (test code = 3.0 G/DL 2240) CALC A/G RATIO (test code = 1.4 RATIO 2234) BILIRUBIN, TOTAL (test code = 0.4 MG/DL 2206) ALKALINE PHOSPHATASE (test 65 U/L code = 2204) AST (test code = 2218) 19 U/L ALT (test code = 2219) 13 U/L COMPREHENSIVE METABOLIC [id number] 00:00:00 Test Item Value Reference Range Interpretation Comments GLUCOSE (test code = 2217) 128 MG/DL BUN (test code = 2208) 10 MG/DL CREATININE (test code = 2214) 0.80 MG/DL eGFR AMER. (test code 113 ML/MIN/1.73 = 31157) eGFR NON- AMER. (test 98 ML/MIN/1.73 code = 50498) CALC BUN/CREAT (test code = 13 RATIO 2235) SODIUM (test code = 2231) 140 MEQ/L POTASSIUM (test code = 2228) 4.2 MEQ/L CHLORIDE (test code = 2215) 104 MEQ/L CARBON DIOXIDE (test code = 27 MEQ/L 2205) CALCIUM (test code = 2209) 9.5 MG/DL PROTEIN, TOTAL (test code = 7.2 G/DL 2228) ALBUMIN (test code = 2201) 4.2 G/DL CALC GLOBULIN (test code = 3.0 G/DL 2240) CALC A/G RATIO (test code = 1.4 RATIO 2234) BILIRUBIN, TOTAL (test code = 0.4 MG/DL 2206) ALKALINE PHOSPHATASE (test 65 U/L code = 2204) AST (test code = 2218) 19 U/L ALT (test code = 2219) 13 U/L [id number] 00:00:00 Test Item Value Reference Range Interpretation Comments TSH, THIRD GENERATION (test code 1.510 UIU/ML = 2821) [id number] 00:00:00 Test Item Value Reference Range Interpretation Comments TSH, THIRD GENERATION (test code 1.510 UIU/ML = 2821) [id number] 00:00:00 Test Item Value Reference Range Interpretation Comments TSH, THIRD GENERATION (test code 1.510 UIU/ML = 2821) SARS-CoV-2 (COVID-19) by RT-PCR (HIGH RISK)2020-01-05 00:00:00 Test Item Value Reference Range Interpretation Comments SARS-CoV-2 INTERPRETATION (test NEGATIVE code = 18508) SOURCE (test code = 19973) NOT SPECIFIED SARS-CoV-2 (COVID-19) by RT-PCR (HIGH RISK)2020-01-05 00:00:00 Test Item Value Reference Range Interpretation Comments SARS-CoV-2 INTERPRETATION (test NEGATIVE code = 78019) SOURCE (test code = 15956) NOT SPECIFIED SARS-CoV-2 (COVID-19) by RT-PCR (HIGH RISK)2020-01-04 00:00:00 Test Item Value Reference Range Interpretation Comments SARS-CoV-2 INTERPRETATION (test NEGATIVE code = 09585) SOURCE (test code = 81467) NOT SPECIFIED SARS-CoV-2 (COVID-19) by RT-PCR (HIGH RISK)2020-01-04 00:00:00 Test Item Value Reference Range Interpretation Comments SARS-CoV-2 INTERPRETATION (test NEGATIVE code = 16271) SOURCE (test code = 40557) NOT SPECIFIED SARS-CoV-2 (COVID-19) by RT-PCR (HIGH RISK)2019-12-26 00:00:00 Test Item Value Reference Range Interpretation Comments SARS-CoV-2 INTERPRETATION (test POSITIVE code = 45014) SOURCE (test code = 06510) NOT SPECIFIED SARS-CoV-2 (COVID-19) by RT-PCR (HIGH RISK)2019-12-26 00:00:00 Test Item Value Reference Range Interpretation Comments SARS-CoV-2 INTERPRETATION (test POSITIVE code = 45513) SOURCE (test code = 52860) NOT SPECIFIED CULTURE, [id number] 00:00:00 Test Item Value Reference Range Interpretation Comments CULTURE, URINE (test SPECIMEN NUMBER: code = 62038) [id number] CULTURE, [id number] 00:00:00 Test Item Value Reference Range Interpretation Comments CULTURE, URINE (test SPECIMEN NUMBER: code = 70487) [id number] TRICHOMONAS, URINE, [id number] 00:00:00 Test Item Value Reference Range Interpretation Comments TRICHOMONAS, URINE, AMP (test code = NEGATIVE 16528) TRICHOMONAS, URINE, [id number] 00:00:00 Test Item Value Reference Range Interpretation Comments TRICHOMONAS, URINE, AMP (test code = NEGATIVE 96038) GC AND CHLAMYDIA BY [id number] 00:00:00 Test Item Value Reference Range Interpretation Comments CHLAMYDIA BY TMA (test code = 95197) NEGATIVE GONORRHEA BY TMA (test code = 45671) NEGATIVE GC AND CHLAMYDIA BY [id number] 00:00:00 Test Item Value Reference Range Interpretation Comments CHLAMYDIA BY TMA (test code = 92511) NEGATIVE GONORRHEA BY TMA (test code = 07619) NEGATIVE PAP TEST, THINPREP, [id number] 00:00:00 Test Item Value Reference Range Interpretation Comments SOURCE: (test code = Cervical/Endocervical 8001) SLIDES: (test code = 2 8011) LMP: (test code = 01/12/18 8021) SPECIMEN ADEQUACY: (NOTE) (test code = 40571) INTERPRETATION: (test NO EPITHELIAL code = 23535) ABNORMALITY SEE BELOW OTHER COMMENTS: (test (NOTE) code = 8081) ELECTRONICS INSTALLER: SEBASTIAN SANDS(ASCP) (test code = 8101) QC TECHNOLOGIST: SEBASTIAN BENTLEY(ASCP) (test code = 8111) LOCATION: (test code (NOTE) = 51933) CPT: (test code = (NOTE) 8140) PAP TEST, THINPREP, [id number] 00:00:00 Test Item Value Reference Range Interpretation Comments SOURCE: (test code = Cervical/Endocervical 8001) SLIDES: (test code = 2 8011) LMP: (test code = 01/12/18 8021) SPECIMEN ADEQUACY: (NOTE) (test code = 04209) INTERPRETATION: (test NO EPITHELIAL code = 94753) ABNORMALITY SEE BELOW OTHER COMMENTS: (test (NOTE) code = 8081) ELECTRONICS INSTALLER: SEBASTIAN SANDS(ASCP) (test code = 8101) QC TECHNOLOGIST: KENNY BHATTCT(ASCP) (test code = 8111) LOCATION: (test code (NOTE) = 82438) CPT: (test code = (NOTE) 8140) ACUTE HEPATITIS [id number] 00:00:00 Test Item Value Reference Range Interpretation Comments HEPATITIS A IgM (test code = NON-REACTIVE 18578) HEPATITIS B CORE IgM (test code NON-REACTIVE = 4644) HEPATITIS B SURF AG (test code = NON-REACTIVE 2739) HEPATITIS C ANTIBODY (test code NON-REACTIVE = 4675) INTERPRETATION HEPATITIS A: (NOTE) (test code = 2552) INTERPRETATION HEPATITIS B: (NOTE) (test code = 08638) INTERPRETATION HEPATITIS C: (NOTE) (test code = 29799) GC AND CHLAMYDIA AMPLIFIED, [id number] 00:00:00 Test Item Value Reference Range Interpretation Comments GONORRHEA, TMA (test code = 21171) NEGATIVE CHLAMYDIA, TMA (test code = 26371) NEGATIVE ACUTE HEPATITIS [id number] 00:00:00 Test Item Value Reference Range Interpretation Comments HEPATITIS A IgM (test code = NON-REACTIVE 84901) HEPATITIS B CORE IgM (test code NON-REACTIVE = 4644) HEPATITIS B SURF AG (test code = NON-REACTIVE 2739) HEPATITIS C ANTIBODY (test code NON-REACTIVE = 4675) INTERPRETATION HEPATITIS A: (NOTE) (test code = 2552) INTERPRETATION HEPATITIS B: (NOTE) (test code = 22442) INTERPRETATION HEPATITIS C: (NOTE) (test code = 79574) GC AND CHLAMYDIA AMPLIFIED, [id number] 00:00:00 Test Item Value Reference Range Interpretation Comments GONORRHEA, TMA (test code = 11597) NEGATIVE CHLAMYDIA, TMA (test code = 12783) NEGATIVE HEMOGLOBIN [id number] 00:00:00 Test Item Value Reference Range Interpretation Comments HEMOGLOBIN A1c (test code = 64210) 5.4 % HEMOGLOBIN [id number] 00:00:00 Test Item Value Reference Range Interpretation Comments HEMOGLOBIN A1c (test code = 12024) 5.4 % HEMOGLOBIN [id number] 00:00:00 Test Item Value Reference Range Interpretation Comments HEMOGLOBIN A1c (test code = 39266) 5.4 % HIV AB/AG COMBO RFLX [id number] 00:00:00 Test Item Value Reference Range Interpretation Comments HIV 1/2 4TH GEN, RFLX CONF (test NON-REACTIVE code = 3514) HPV HIGH RISK WITH GENOTYPE, [id number] 00:00:00 Test Item Value Reference Range Interpretation Comments HPV HIGH RISK INTERP (test code = NEGATIVE 85412) HPV 16 (test code = 83353) NEGATIVE HPV 18 (test code = 92758) NEGATIVE HPV, HR, OTHER GENOTYPES (test code NEGATIVE = 59718) HPV HIGH RISK WITH GENOTYPE, [id number] 00:00:00 Test Item Value Reference Range Interpretation Comments HPV HIGH RISK INTERP (test code = NEGATIVE 61028) HPV 16 (test code = 15626) NEGATIVE HPV 18 (test code = 35510) NEGATIVE HPV, HR, OTHER GENOTYPES (test code NEGATIVE = 90510) HIV AB/AG COMBO RFLX [id number] 00:00:00 Test Item Value Reference Range Interpretation Comments HIV 1/2 4TH GEN, RFLX CONF (test NON-REACTIVE code = 3514) TRICHOMONAS, THINPREP, AMP [ADDED]2018-02-02 00:00:00 Test Item Value Reference Range Interpretation Comments TRICHOMONAS, THINPREP, AMP (test Negative code = 18430) [id number] 00:00:00 Test Item Value Reference Range Interpretation Comments RPR RESULT (test code = NON-REACTIVE 3501) RPR TITER (test code = 3500) NOT INDIC. TITER [id number] 00:00:00 Test Item Value Reference Range Interpretation Comments RPR RESULT (test code = NON-REACTIVE 3501) RPR TITER (test code = 3500) NOT INDIC. TITER TRICHOMONAS, THINPREP, AMP [ADDED]2018-02-02 00:00:00 Test Item Value Reference Range Interpretation Comments TRICHOMONAS, THINPREP, AMP (test Negative code = 25475) [id number] 00:00:00 Test Item Value Reference Range Interpretation Comments RPR RESULT (test code = NON-REACTIVE 3501) RPR TITER (test code = 3500) NOT INDIC. TITER LIPID [id number] 00:00:00 Test Item Value Reference Range Interpretation Comments CHOLESTEROL (test code = 2210) 180 MG/DL TRIGLYCERIDES (test code = 2232) 135 MG/DL HDL CHOLESTEROL (test code = 2220) 58 MG/DL CALC LDL CHOL (test code = 2237) 95 MG/DL RISK RATIO LDL/HDL (test code = 1.64 RATIO 2238) LIPID [id number] 00:00:00 Test Item Value Reference Range Interpretation Comments CHOLESTEROL (test code = 2210) 180 MG/DL TRIGLYCERIDES (test code = 2232) 135 MG/DL HDL CHOLESTEROL (test code = 2220) 58 MG/DL CALC LDL CHOL (test code = 2237) 95 MG/DL RISK RATIO LDL/HDL (test code = 1.64 RATIO 2238) COMPREHENSIVE METABOLIC [id number] 00:00:00 Test Item Value Reference Range Interpretation Comments GLUCOSE (test code = 2217) 92 MG/DL BUN (test code = 2208) 7 MG/DL CREATININE (test code = 2214) 0.75 MG/DL eGFR AMER. (test code 124 ML/MIN/1.73 = 31300) eGFR NON- AMER. (test 107 ML/MIN/1.73 code = 02871) CALC BUN/CREAT (test code = 9 RATIO 2235) SODIUM (test code = 2231) 140 MEQ/L POTASSIUM (test code = 2228) 4.5 MEQ/L CHLORIDE (test code = 2215) 101 MEQ/L CARBON DIOXIDE (test code = 28 MEQ/L 220) CALCIUM (test code = 2209) 9.4 MG/DL PROTEIN, TOTAL (test code = 7.4 G/DL 222) ALBUMIN (test code = 2201) 4.4 G/DL CALC GLOBULIN (test code = 3.0 G/DL 2240) CALC A/G RATIO (test code = 1.5 RATIO 2234) BILIRUBIN, TOTAL (test code = 0.6 MG/DL 220) ALKALINE PHOSPHATASE (test 70 U/L code = 2204) AST (test code = 2218) 21 U/L ALT (test code = 2219) 11 U/L COMPREHENSIVE METABOLIC [id number] 00:00:00 Test Item Value Reference Range Interpretation Comments GLUCOSE (test code = 2217) 92 MG/DL BUN (test code = 2208) 7 MG/DL CREATININE (test code = 2214) 0.75 MG/DL eGFR AMER. (test code 124 ML/MIN/1.73 = 48161) eGFR NON- AMER. (test 107 ML/MIN/1.73 code = 47947) CALC BUN/CREAT (test code = 9 RATIO 223) SODIUM (test code = 2231) 140 MEQ/L POTASSIUM (test code = 2228) 4.5 MEQ/L CHLORIDE (test code = 2215) 101 MEQ/L CARBON DIOXIDE (test code = 28 MEQ/L 2205) CALCIUM (test code = 220) 9.4 MG/DL PROTEIN, TOTAL (test code = 7.4 G/DL 2228) ALBUMIN (test code = 220) 4.4 G/DL CALC GLOBULIN (test code = 3.0 G/DL 2239) CALC A/G RATIO (test code = 1.5 RATIO 2233) BILIRUBIN, TOTAL (test code = 0.6 MG/DL 2206) ALKALINE PHOSPHATASE (test 70 U/L code = 220) AST (test code = 2218) 21 U/L ALT (test code = 2219) 11 U/L
[2022-05-08] MEDS ORDERED: ACETAMINOPHEN 500 MG TAB ONE (13:28)
[2022-05-08 13:46] LABS: Urine Blood Trace-intact (Negative); Urine Glucose Negative (Negative); Urine Protein Negative (Negative); Urine Specific Gravity 1.015 (1.005-1.030)
--- NOTE | 2022-05-08 13:46 | RAD REPORT ---
EXAM DESCRIPTION: CT - Head Brain Wo Cont - 05/08/2022 1:34 pm CLINICAL HISTORY: Headache COMPARISON: None. TECHNIQUE: Computed axial tomography of the head was obtained. IV contrast was not requested. All CT scans are performed using dose optimization technique as appropriate and may include automated exposure control or mA/KV adjustment according to patient size. FINDINGS: An intracranial bleed is not seen . The ventricles are normal in caliber. No significant hypodense areas within the brain visualized No extra-axial fluid collection is noted. Fluid within the sinuses/ mastoids is not seen. IMPRESSION: No acute intracranial abnormality is seen. If patient's symptoms persist MRI of the bra in would be recommended.
[2022-05-08 14:01] LABS: Urine Specific Gravity/Preg 1.015 (1.005-1.030)
--- NOTE | 2022-05-08 14:03 | EDPHYS ---
Physician Documentation [facility] Name: Chastity Otto Age: 32 yrs Sex: Female : 1990 Arrival Date: 05/08/2022 Time: 13:00 Bed 16 Private MD: ED Physician Anish Bergman HPI: 05/08 13:15 This 32 yrs old Black Female presents to ER via Ambulatory with complaints of Head Pain.cp 13:15 The patient complains of pain to the left base of the skull. cp 13:15 The patient describes the headache as aching, waxing and waning, sharp. Onset: The cp symptoms/episode began/occurred 3 week(s) ago. Associated signs and symptoms: The patient has no apparent associated signs or symptoms. Severity of symptoms: in the emergency department the pain is unchanged, despite home interventions. Headache History: Denies prior headaches. 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 - Social history:: Smoking status: Patient denies any tobacco usage or history of. ROS: 13:20 Neuro: Positive for headache, Negative for altered mental status, dizziness, gait cp disturbance, numbness, tingling, weakness. 13:20 Constitutional: Negative for body aches, chills, fever. cp 13:20 Eyes: Negative for injury, pain, redness, and discharge. cp 13:20 ENT: Negative for drainage from ear(s), ear pain, sore throat, difficulty swallowing, difficulty handling secretions. 13:20 Neck: Negative for pain with movement, pain at rest, stiffness, bony tenderness. 13:20 Cardiovascular: Negative for chest pain, edema, palpitations. 13:20 Respiratory: Negative for cough, shortness of breath, wheezing. 13:20 Abdomen/GI: Negative for abdominal pain, vomiting, diarrhea, constipation. 13:20 Back: Negative for pain at rest, pain with movement. 13:20 Skin: Negative for rash. 13:20 All other systems are negative. Exam: 13:25 Constitutional: The patient appears in no acute distress, alert, awake, cp non-diaphoretic, non-toxic, well developed, well nourished, obese. 13:25 Head/Face: Normocephalic, atraumatic. cp 13:25 Eyes: Periorbital structures: appear normal, Pupils: equal, round, and reactive to light and accomodation, Extraocular movements: intact throughout, Conjunctiva: normal, no exudate, no injection, Sclera: no appreciated abnormality, Lids and lashes: appear normal, bilaterally. 13:25 ENT: External ear(s): are unremarkable, Ear canal(s): are normal, clear, TM's: dullness, bilaterally, Nose: is normal, Mouth: Lips: moist, Oral mucosa: pink and intact, moist, Posterior pharynx: Airway: no evidence of obstruction, patent. 13:25 Neck: C-spine: vertebral tenderness, is not appreciated, crepitus, is not appreciated, ROM/movement: is normal, is supple, without pain, no range of motions limitations, no nuchal rigidity. 13:25 Chest/axilla: Inspection: normal. 13:25 Cardiovascular: Rate: normal, Rhythm: regular. 13:25 Respiratory: the patient does not display signs of respiratory distress, Respirations: normal, no use of accessory muscles, no retractions, labored breathing, is not present, Breath sounds: are clear throughout, no decreased breath sounds, no stridor, no wheezing. 13:25 Abdomen/GI: Exam negative for discomfort, distension, guarding, Inspection: abdomen appears normal. 13:25 Back: pain, is absent, ROM is normal. 13:25 Neuro: Orientation: to person, place \T\ time. Mentation: is normal, Cerebellar function: Romberg testing is negative, Motor: moves all fours, strength is normal, Sensation: is normal, Gait: is steady, at a normal pace, without difficulty. Vital Signs: 13:13 BP 179 / 104; Pulse 85; Resp 18; Temp 97.7; Pulse Ox 100% ; Weight 131.54 kg; Height 5 hb ft. 2 in. (157.48 cm); Pain 8/10; 13:30 BP 154 / 101; Pulse 82; Pulse Ox 99% ; ko1 14:15 BP 156 / 100; ko1 13:13 Body Mass Index 53.04 (131.54 kg, 157.48 cm) hb MDM: 13:17 Patient medically screened. cp 13:30 Differential diagnosis: cluster headache, intracerebral hemorrhage, cp meningoencephalitis, migraine, neoplasm, subarachnoid bleed, tension headache. 14:01 Data reviewed: vital signs, nurses notes, lab test result(s), radiologic studies, CT cp scan, and as a result, I will discharge patient. Counseling: I had a detailed discussion with the patient and/or guardian regarding: the historical points, exam findings, and any diagnostic results supporting the discharge/admit diagnosis, the presence of at least one elevated blood pressure reading (>120/80) during this emergency department visit, lab results, radiology results, the need for outpatient follow up, a family practitioner, to return to the emergency department if symptoms worsen or persist or if there are any questions or concerns that arise at home. Response to treatment: the patient's symptoms have mildly improved after treatment, and as a result, I will discharge patient. 05/08 13:47 Order name: Urine Dipstick-Ancillary; Complete Time: 13:52 EDMS 05/08 13:52 Interpretation: Normal except: UBLD Trace-intact. 05/08 13:56 Order name: Urine --Ancillary (enter results); Complete Time: 14:09 eb 05/08 14:09 Interpretation: Reviewed. 05/08 13:16 Order name: Urine Dipstick-Ancillary (obtain specimen); Complete Time: 14:04 cp 05/08 13:16 Order name: Urine Test (obtain specimen); Complete Time: 14:04 cp 05/08 13:16 Order name: CT Head Brain wo Cont; Complete Time: 13:52 cp 05/08 13:53 Interpretation: Report reviewed. 05/08 13:16 Order name: Blood Pressure Recheck; Complete Time: 13:30 cp Administered Medications: 13:30 Drug: Tylenol 1000 mg Route: PO; ko1 Disposition: 15:45 Co-signature as Attending Physician, Anish Bergman MD I agree with the assessment and rt plan of care. Disposition Summary: 05/08/22 14:02 Discharge Ordered Location: Home cp Problem: new cp Symptoms: have improved cp Condition: Stable cp Diagnosis - Headache cp - Elevated blood-pressure reading, without diagnosis of hypertension cp Followup: cp - With: Private Physician - When: 2 - 3 days - Reason: Recheck today's complaints Discharge Instructions: - Discharge Summary Sheet cp - General Headache Without Cause cp - Form - Blood Pressure Record Sheet cp - How to Take Your Blood Pressure cp Forms: - Medication Reconciliation Form cp - Thank You Letter cp - Antibiotic Education cp - Prescription Opioid Use cp Prescriptions: - Fioricet 50-300-40 mg Oral capsule - take 1 capsule by ORAL route every 4 hours as needed; 20 capsule; Refills: 0, cp Product Selection Permitted Signatures: Dispatcher [employer] EDMS Mark Askew PA PA cp Jacki Frazier RN RN Li Kearns RN RN ko1 Anish Bergman MD MD rt
--- NOTE | 2022-05-08 14:03 | ER ---
Nurse's Notes [facility] Name: Chastity Otto Age: 32 yrs Sex: Female : 1990 Arrival Date: 05/08/2022 Time: 13:00 Bed 16 Private MD: Diagnosis: Headache;Elevated blood-pressure reading, without diagnosis of hypertension Presentation: 05/08 13:11 Chief complaint: left sided neck pain x 1 3 weeks. hb 13:12 Coronavirus screen: At this time, the client does not indicate any symptoms associated hb with coronavirus-19. Ebola Screen: No symptoms or risks identified at this time. Initial Sepsis Screen: Does the patient meet any 2 criteria? No. Patient's initial sepsis screen is negative. Does the patient have a suspected source of infection? No. Patient's initial sepsis screen is negative. Risk Assessment: Do you want to hurt yourself or someone else? Patient reports no desire to harm self or others. Onset of symptoms was April 24, 2022. 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 - Social history:: Smoking status: Patient denies any tobacco usage or history of. Screenin:30 Abuse screen: Denies threats or abuse. Denies injuries from another. Nutritional ko1 screening: No deficits noted. Tuberculosis screening: No symptoms or risk factors identified. Fall Risk None identified. Assessment: 13:30 General: Appears in no apparent distress. comfortable, Behavior is calm, cooperative, ko1 appropriate for age. Pain: Complains of pain in left base of the skull. Neuro: No deficits noted. Cardiovascular: No deficits noted. Respiratory: No deficits noted. GI: No deficits noted. : No deficits noted. EENT: No deficits noted. Derm: No deficits noted. Musculoskeletal: No deficits noted. Vital Signs: 13:13 BP 179 / 104; Pulse 85; Resp 18; Temp 97.7; Pulse Ox 100% ; Weight 131.54 kg; Height 5 hb ft. 2 in. (157.48 cm); Pain 8/10; 13:30 BP 154 / 101; Pulse 82; Pulse Ox 99% ; ko1 14:15 BP 156 / 100; ko1 13:13 Body Mass Index 53.04 (131.54 kg, 157.48 cm) ED Course: 13:00 Patient arrived in ED. rg4 13:05 Mark Askew PA is PHCP. cp 13:05 Anish Bergman MD is Attending Physician. cp 13:12 Triage completed. hb 13:13 Arm band placed on. hb 13:25 Li Kearns, RN is Primary Nurse. ko1 13:30 Patient has correct armband on for positive identification. Bed in low position. Call ko1 light in reach. Side rails up X 1. Pulse ox on. NIBP on. 13:30 No provider procedures requiring assistance completed. Patient did not have IV access ko1 during this emergency room visit. 13:36 CT Head Brain wo Cont In Process Unspecified. EDMS Administered Medications: 13:30 Drug: Tylenol 1000 mg Route: PO; ko1 Medication: 13:30 VIS not applicable for this client. ko1 Outcome: 14:02 Discharge ordered by MD. cp 14:15 Discharged to home ambulatory. ko1 14:15 Condition: stable 14:15 Discharge instructions given to patient, Instructed on discharge instructions, follow up and referral plans. medication usage, blood pressure control Demonstrated understanding of instructions, follow-up care, medications, Prescriptions given X 1. 14:16 Patient left the ED. ko1 Signatures: Dispatcher [employer] EDMS Mark Askew PA PA cp Baxter, Heather, RN RN hb Garcia, Rubi rg4 Li Kearns, RN RN ko1 Corrections: (The following items were deleted from the chart) 14:15 13:30 BP 156 / 100; ko1 ko1
[2022-05-08 14:25] VITALS: TEMP 97.7
[2022-05-08 14:26] VITALS: O2SAT 99
[2022-05-08 14:27] VITALS: BP 156/100
== END 2022-05-08 14:16 | disposition home or self-care (01) ==
LOC: ER 12:58
DX: R51.9 Headache, unspecified (principal); R03.0 Elevated blood-pressure reading, without diagnosis of hypertension
CPT/HCPCS: 70450; 81003; 81025; 99284

== ENCOUNTER 2022-10-16 11:08 | Emergency (ER) | payer OTHER, SELFPAY ==
--- OUTSIDE RECORDS SUMMARY | 2022-10-16 11:13 | XMS REPORT | Continuity of Care Document ---
:1990 Author Organization [facility] t Address [address] [facility] [address] [place] [address] Care Team Providers Name Role Phone LUIS BARNETT Primary Care Physician Unavailable Susy Abbasi Attending Clinician Unavailable RADIOLOGY Attending Clinician Unavailable Radiology Attending Clinician Unavailable Physician, No Primary or Family Admitting Clinician Unavaila LUIS Barrios Admitting Clinician Unavailable Payers Payer Name Policy Type Policy Number Effective Date Expiration Date S ource Problems This patient has no known problems. Allergies, Adverse Reactions, Alerts Allergy Allergy Status Severity Reaction(s) Onset Inactive Treating Comm ents Source Name Type Date Date Clinician Sulfa DA Active SV ANAPHYLAXIS [facility] (Sulfona 4-20 [place] [facility] 00:00: d Antibiot 00 Medical ics) Center Sulfa Propensi Active (Sulfona ty to 2-18 mide adverse 00:00: Antibiot reaction 00 ics) to drug Sulfa DA Active SV 2013-06 [facility] (Sulfona 1-11 [place] [facility] 00:00: d Antibiot 00 Medical ics) Center Sulfa DA Active SV RASH, 2013-06 [facility] (Sulfona SWELLING 1-11 [place] FACE 00:00: d Antibiot 00 Medical ics) Center NO KNOWN Drug Active [facility] ALLERGIE Class ity of S [place] [facility] Social History Social Habit Start Date Stop Date Quantity Comments Source Sex Assigned At [birth year] [facility] [place] [facility]:00 Medical Branch Smoking Status Start Date Stop Date Source Tobacco smoking consumption [facility] Medical unknown Branch Medications Ordered Filled Start Stop Current Ordering Indication Dosage Frequency Signature Comments Components Source Medication Medication Date Date Medication? Clinician (SIG) Name Name Dose 2021-0 No Unknown 12-16 00:00: 00 TAKE BY 2021-0 No MOUTH 6-29 DIRECTED ON 00:00: INSIDE OF 00 PACKAGE TAKE BY 2021-0 No MOUTH 6-29 DIRECTED ON 00:00: INSIDE OF 00 PACKAGE DISSOLVE 1 2021-0 No TABLET IN 6-29 MOUTH EVERY 00:00: 6 TO 8 00 HOURS NEEDED FOR NAUSEA Dose 2021-0 No Unknown 12-16 00:00: 00 Dose 2021-0 No Unknown 12-16 [...] Flagyl 500 2020-0 No 1mg mg tablet 6- 00:00: 00 ibuprofen 1-0 No 1mg 400 mg 6-22 tablet 00:00: [...] amlodipine 2019-0 No 1mg 5 mg tablet 03-13 00:00: 00 metoprolol 2019-0 No 1mg succinate 917 ER 25 mg 00:00: tablet,exte 00 nded release 24 hr amlodipine 2019-0 No 1mg 2.5 mg 02-20 tablet 00:00: 00 Diflucan 2018-0 No 1mg 150 mg 9-27 tablet 00:00: 00 nitrofurant 2018-0 No 1mg oin 8-15 monohydrate 00:00: /macrocryst 00 als 100 mg capsule Medrol 4 mg 2016-0 No mg tablet 02-23 00:00: 00 Claritin 10 2016-0 No 1mg mg tablet 02-23 00:00: 00 amoxicillin 2016-0 No 1mg 500 mg 8-21 tablet 00:00: 00 triamcinolo 2016-0 No 1% ne 415 acetonide 00:00: 0.1 % 00 topical ointment hydroxyzine 2015-0 No 1mg HCl 50 mg 4-15 tablet 00:00: 00 Keflex 500 2016-0 No 1mg mg capsule 4-15 00:00: 00 amoxicillin 2016-0 No 1mg 500 mg 1-11 tablet 00:00: [...] Procedure Date / Time Performed Performing Clinician [facility] e [address] Colposcopy Cervix Bx Cervix 2020-12-23 00:00:00 endocrv Curtg Plan of Care Planned Activity Planned Date Details Comments Source Goal Plan of Care Note [code = 43591-4] Goal Plan of Care Note [code = 32421-6] Goal Plan of Care Note [code = 89231-3] Goal Plan of Care Note [code = 87627-9] Goal Plan of Care Note [code = 74182-6] Goal Plan of Care Note [code = 31488-2] Goal Plan of Care Note [code = 18462-8] Goal Plan of Care Note [code = 94741-2] Goal Plan of Care Note [code = 65775-7] Goal Plan of Care Note [code = 81113-6] Goal Plan of Care Note [code = 93224-8] Goal Plan of Care Note [code = 81617-8] Goal Plan of Care Note [code = 45002-6] Goal Plan of Care Note [code = 38569-1] Goal Plan of Care Note [code = 63216-1] Goal Plan of Care Note [code = 96820-7] Goal Plan of Care Note [code = 82517-9] Goal Plan of Care Note [code = 88958-6] Goal Plan of Care Note [code = 37791-6] Goal Plan of Care Note [code = 39603-9] Goal Plan of Care Note [code = 24619-4] Goal Plan of Care Note [code = 25967-1] Goal Plan of Care Note [code = 64569-8] Goal Plan of Care Note [code = 57000-3] Goal Plan of Care Note [code = 88340-6] Goal Plan of Care Note [code = 23693-2] Goal Plan of Care Note [code = 59192-9] Goal Plan of Care Note [code = 64333-4] Goal Plan of Care Note [code = 25736-6] Goal Plan of Care Note [code = 34808-0] Goal Plan of Care Note [code = 73549-0] Goal Plan of Care Note [code = 17392-0] Goal Plan of Care Note [code = 45696-8] Goal Plan of Care Note [code = 00676-5] Goal Plan of Care Note [code = 14220-2] Goal Plan of Care Note [code = 55643-8] Goal Plan of Care Note [code = 57656-4] Goal Plan of Care Note [code = 33883-3] Goal Plan of Care Note [code = 67053-5] Goal Plan of Care Note [code = 72268-9] Goal Plan of Care Note [code = 07717-1] Goal Plan of Care Note [code = 99913-2] Goal Plan of Care Note [code = 14646-7] Goal Plan of Care Note [code = 19623-5] Encounters Start End Encounter Admission Attending Care Care Encounter Source Date/Time Date/Time Type Type Clinicians Facility Department ID 2020-06-17 Inpatient [facility] [place] [id number] [facility] 18:07:00 07 [facility] 2022-10-11 2022-10-11 Outpatient Susy Armando H[facility] [place] LA00 [id number] [facility] 07:23:00 07:23:00 39 [facility] 2022-09-08 2022-09-08 Outpatient S[facility] [id number] [place] 17:20:20 17:20:20 [address] [place] 2022-08-09 2022-08-09 Outpatient SFA SFA [id number] 023 [place] 16:55:16 16:55:16 [address] [place] 2022-07-27 2022-07-27 Outpatient R RADIOLOGY [facility] [id number] [facility] 14:58:40 23:59:00 ity of [facility] 2022-07-27 2022-07-27 [facility] Radiology [facility] [id number] Univers 14:58:40 23:59:00 Encounter [place] [id number] ity [facility] [id number] [facility] [id number] [address] 2022-05-31 2022-05-31 Outpatient SFA SFA [id number] [place] 08:05:34 08:05:34 [address] [place] 2022-05-04 2022-05-04 Outpatient SFA SFA [id number] 022 [place] 09:33:11 09:33:11 [address] [place] 2022-05-04 2022-05-04 Outpatient [id number] 00:00:00 00:00:00 Visit [id number] Results Test Description Test Time Test Comments Results Result Comments Source SURGICAL 2022-10-14 16:05:00 Test Item Value Reference Range Interpretation Comme nts SURGICAL RUN DATE: (test 10/14/22 KATHY Melgar d - LAB PAGE 1 RUN TIME: 1605 Specimen Inquiry RUN USER: INTERFACE code = PATIENT: LIZ JULISSA CARR DIANNE T #: [id number] LOC: [facility] U #: [id number] AGE/SX: 32/F ROOM: RE10/11/22REG DR: Susy Abbasi DO : [birth year] BED: DIS: S TATUS: DEP [facility] TLOC: SPEC #: [id number]:[facility]MC:[id number] RECD: 10/11/22- 0 STATUS: MEHRDAD HELMS #: [id number] JONATAN: 10/11/22- 1010 [facility] DR: Susy Abbasi DO ENTERED: 10/11/22 SP TY PE: SURGICAL OTHR DR: ORDERED: 13599/2, ANATOMIC SPEC, SPECIMEN TRACK PROCEDURES: 00883 (10/14/22- 1546) SPECIMEN TRACK (10/11/22-1150) TISSUES: A. TONSIL, NOS - RIGHT TONSIL B. TONSIL, NOS - LEFT TONSIL FINAL DIAGNOSIS A. Tonsil, right, tonsillectomy:- Chronic tonsillitis (lymphoid hyperplastic jay es, mainly follicular), mildly andsuperficially acute- Partly desquamative with focal fungal organisms consistent with Kate spp withinkeratinous debris- Actinomyces bacteria colonies within some of the crypts B. Tonsil, left, tonsillectomy:- Chronic tonsillitis (lymphoid hyperplastic changes, mainly follicular), mildly andsuperficially acute- Partly desquamative with focal fungal organisms consistent with Kate spp withinkeratinous debris Comment: Negative for atypia/malignancy. GROSS CARLOS ALBERTO CRIPTION A. Right tonsil. Received is a tonsil that weighs 5.2 g and measures 3 x 2.3 x 1 cm. Cut sections reveal yellow pink cut surface. Sections submitted as A1. B. Left tonsil. RReceived is a tonsi l that weighs 5.2 g and measure 3 x 2 x 1.2 cm. Cutsections reveal yellow pink surface. Sections submi tted as B1. Technical tissue processing and slide preparation performed at [facility] [address], [place] [address] Unless gross only, the diagnosis is based upon microscopic examination.Immu nohistochemistry: This test was developed and its performance characteristicsdetermined by this laboratory. It has not been approved nor does it need approval by the USFDA. Appropriate positive and negative controls are reviewed and judged to be acceptable.This laboratory is certified unde r the Clinical Laboratory Improvement Amendments (CLIA-88)as qualified to perform high complexity clin [facility] laboratory testing. CONTINUED ON NEXT PAGE RUN DATE: 10/14/22 KATHY umana - LAB PAGE 2 RUN TIME: 1605 Specimen Inquiry RUN USER: INTERFACE SPEC #: [id number]:[facility]:[id number] PATIENT: JULISSA CARR #[id number] (Continued) MICROSCOPIC DESCRIPTION Micr oscopic examination is performed on all specimens and the findings areincorporated into the fin al diagnosis. Please see diagnosis for findings. CLINICAL INFORMATION Chronic tonsillitis Signed SIGNATURE ON FILE Alfred Fernandez 10/14/22 5334 END OF REPORT CBC W/AUTO [id number] 18:18:00 Test Item Value Reference Range Interpretation Comments WHITE BLOOD CELL (test code = 12.8 K/mm3 3.5-11.0 H WBC) RED BLOOD CELL (test code = 4.89 M/mm3 4.70-6.10 N RBC) HEMOGLOBIN (test code = HGB) 13.0 G/DL 10.4-14.9 N HEMATOCRIT (test code = HCT) 38.5 % 31.5-44.1 N MEAN CELL VOLUME (test code = 78.7 Fl 84.5-98.6 L MCV) MEAN CELL HGB (test code = MCH) 26.6 pg 27.0-34.2 L MEAN CELL HGB CONCETRATION 33.8 G/DL 31.5-34.0 N (test code = MCHC) RED CELL DISTRIBUTION WIDTH 13.1 SD 11.5-14.5 N (test code = RDW) PLATELET COUNT (test code = 384 K/mm3 150-450 N PLT) MEAN PLATELET VOLUME (test code 9.40 fL 7.0-10.5 N = MPV) NEUTROPHIL % (test code = NT%) 65.6 % 40-76 N IMMATURE GRANULOCYTE % (test 0.2 % 0.0-5.0 N code = IG%) LYMPHOCYTE % (test code = LY%) 26.2 % 20.5-51.1 N MONOCYTE % (test code = MO%) 5.2 % 1.7-9.3 N EOSINOPHIL % (test code = EO%) 2.6 % 0.0-6.0 N BASOPHIL % (test code = BA%) 0.2 % 0.0-2.0 N NUCLEATED RBC % (test code = 0.0 /100WBC% 0.0-1.0 N NRBC%) NEUTROPHIL # (test code = NT#) 8.4 K/mm3 1.8-7.6 H IMMATURE GRANULOCYTE # (test 0.03 x10 3/uL 0.00-0.03 N code = IG#) LYMPHOCYTE # (test code = LY#) 3.3 K/mm3 0.6-3.2 H MONOCYTE # (test code = MO#) 0.7 K/mm3 0.3-1.1 N EOSINOPHIL # (test code = EO#) 0.3 K/mm3 0.0-0.4 N BASOPHIL # (test code = BA#) 0.0 K/mm3 0.0-0.1 N NUCLEATED RBC # (test code = 0.0 K/mm3 0.0-0.1 N NRBC#) MANUAL DIFF REQUIRED (test code NO DIFF/SCN CRITERIA = MDIFF) HCG SERUM [id number] 18:10:00 Test Item Value Reference Range Interpretation Comments HCG SERUM QUAL (test SERUM NEGATIVE SCREEN NEGATIVE code = HCGQL) COVID 19 INHOUSE [id number] 18:10:00 Test Item Value Reference Range Interpretation Comments COVID 19 INHOUSE AG NEGATIVE Negative Per manu facturer, (test code = negative result s should [id number]) be treated aspr esumptive and, if inconsi stent with clinical signs andsymptoms or necessary for patient man agement, should betested with an alternative mol ecular assay. Negative resultsdo not preclude SA RS-CoV-2 infection and s hould not be usedas the s ole basis for patient man agement decisions. Nega tive results should be considered in t he context of apatient's r ecent exposures, hist ory, presence of cli nicalsigns and symptoms co nsistent with COVID-19. HIV 1/2 4TH GEN, RFLX [id number] 00:00:00 Test Item Value Reference Range Interpretation Comments HIV 1/2 4TH GEN, RFLX CONF (test NON-REACTIVE code = 3514) HIV 1/2 4TH GEN, RFLX [id number] 00:00:00 Test Item Value Reference Range Interpretation Comments HIV 1/2 4TH GEN, RFLX CONF (test NON-REACTIVE code = 3514) ACUTE HEPATITIS [id number] 00:00:00 Test Item Value Reference Range Interpretation Comments HEPATITIS A IgM (test code = NON-REACTIVE 77041) HEPATITIS B CORE IgM (test code NON-REACTIVE = 1344) HEPATITIS B SURF AG (test code = NON-REACTIVE 3446) HEPATITIS C ANTIBODY (test code NON-REACTIVE = 2580) INTERPRETATION HEPATITIS A: (NOTE) (test code = 2552) INTERPRETATION HEPATITIS B: (NOTE) (test code = 99829) INTERPRETATION HEPATITIS C: (NOTE) (test code = 25019) ACUTE HEPATITIS [id number] 00:00:00 Test Item Value Reference Range Interpretation Comments HEPATITIS A IgM (test code = NON-REACTIVE 00202) HEPATITIS B CORE IgM (test code NON-REACTIVE = 4644) HEPATITIS B SURF AG (test code = NON-REACTIVE 2739) HEPATITIS C ANTIBODY (test code NON-REACTIVE = 4675) INTERPRETATION HEPATITIS A: (NOTE) (test code = 2552) INTERPRETATION HEPATITIS B: (NOTE) (test code = 31670) INTERPRETATION HEPATITIS C: (NOTE) (test code = 03697) [id number] 00:00:00 Test Item Value Reference Range Interpretation Comments RPR RESULT (test code = NON-REACTIVE 3501) RPR TITER (test code = 3500) NOT INDIC. TITER [id number] 00:00:00 Test Item Value Reference Range Interpretation Comments RPR RESULT (test code = NON-REACTIVE 3501) RPR TITER (test code = 3500) NOT INDIC. TITER [id number] 00:00:00 Test Item Value Reference Range Interpretation Comments RPR RESULT (test code = NON-REACTIVE 3501) RPR TITER (test code = 3500) NOT INDIC. TITER SARS-CoV-2 (COVID-19) by RT-PCR (HIGH RISK)2021-02-12 00:00:00 Test Item Value Reference Range Interpretation Comments SARS-CoV-2 INTERPRETATION (test NEGATIVE code = 79087) SOURCE (test code = 24747) NOT SPECIFIED SARS-CoV-2 (COVID-19) by RT-PCR (HIGH RISK)2021-02-12 00:00:00 Test Item Value Reference Range Interpretation Comments SARS-CoV-2 INTERPRETATION (test NEGATIVE code = 24660) SOURCE (test code = 18543) NOT SPECIFIED VAGINAL PATHOGENS DNA [id number] 00:00:00 Test Item Value Reference Range Interpretation Comments KATE SPECIES (test code = ) NEGATIVE G. VAGINALIS (test code = 88788) NEGATIVE T. VAGINALIS (test code = 24880) NEGATIVE VAGINAL PATHOGENS DNA [id number] 00:00:00 Test Item Value Reference Range Interpretation Comments KATE SPECIES (test code = ) NEGATIVE G. VAGINALIS (test code = 24612) NEGATIVE T. VAGINALIS (test code = 62547) NEGATIVE SURGICAL PATHOLOGY [id number] 00:00:00 Test Item Value Reference Range Interpretation Comments DIAGNOSIS: (test code = 8200) (NOTE) COMMENTS: (test code = 8205) (NOTE) MICROSCOPIC DESCRIPTION: (test code = (NOTE) 8210) CLINICAL DATA: (test code = 8401) (NOTE) GROSS DESCRIPTION: (test code = 8220) (NOTE) PATHOLOGIST: (test code = 8250) (NOTE) CPT: (test code = 8400) (NOTE) SURGICAL PATHOLOGY [id number] 00:00:00 Test Item Value Reference Range Interpretation Comments DIAGNOSIS: (test code = 8200) (NOTE) COMMENTS: (test code = 8205) (NOTE) MICROSCOPIC DESCRIPTION: (test code = (NOTE) 8210) CLINICAL DATA: (test code = 8401) (NOTE) GROSS DESCRIPTION: (test code = 8220) (NOTE) PATHOLOGIST: (test code = 8250) (NOTE) CPT: (test code = 8400) (NOTE) VAGINAL PATHOGENS DNA [id number] 00:00:00 Test Item Value Reference Range Interpretation Comments KATE SPECIES (test code = 53767) NEGATIVE G. VAGINALIS (test code = 41017) NEGATIVE T. VAGINALIS (test code = 81953) NEGATIVE VAGINAL PATHOGENS DNA [id number] 00:00:00 Test Item Value Reference Range Interpretation Comments KATE SPECIES (test code = 39743) NEGATIVE G. VAGINALIS (test code = 60361) NEGATIVE T. VAGINALIS (test code = 09773) NEGATIVE HIV AB/AG COMBO RFLX [id number] 00:00:00 Test Item Value Reference Range Interpretation Comments HIV 1/2 4TH GEN, RFLX CONF (test NON-REACTIVE code = 3514) PAP TEST, THINPREP, [id number] 00:00:00 Test Item Value Reference Range Interpretation Comments SOURCE: (test code = Endocervical 8001) SLIDES: (test code = 1 8011) LMP: (test code = 8021) 11/18/2020 SPECIMEN ADEQUACY: (test (NOTE) code = 88645) INTERPRETATION: (test LSIL/EPITH. code = 96958) ABNORMALITY; SEE BELOW SHIPPING AND RECEIVING ASSOCIATE: (test [place] code = 8101) SEBASTIAN Palomares(ASCP)IAC PATHOLOGIST Otilio Solitario M.D. INTERPRETATION BY: (test code = 8122) LOCATION: (test code = (NOTE) 37475) CPT: (test code = 8140) (NOTE) PAP TEST, THINPREP, [id number] 00:00:00 Test Item Value Reference Range Interpretation Comments SOURCE: (test code = Endocervical 8001) SLIDES: (test code = 1 8011) LMP: (test code = 8021) 11/18/2020 SPECIMEN ADEQUACY: (test (NOTE) code = 35547) INTERPRETATION: (test LSIL/EPITH. code = 01307) ABNORMALITY; SEE BELOW SHIPPING AND RECEIVING ASSOCIATE: (test [place] code = 8101) SEBASTIAN Palomares(ASCP)IAC PATHOLOGIST Otilio Solitario M.D. INTERPRETATION BY: (test code = 8122) LOCATION: (test code = (NOTE) 90672) CPT: (test code = 8140) (NOTE) HIV AB/AG COMBO RFLX [id number] 00:00:00 Test Item Value Reference Range Interpretation Comments HIV 1/2 4TH GEN, RFLX CONF (test NON-REACTIVE code = 3514) HPV HIGH RISK WITH GENOTYPE, [id number] 00:00:00 Test Item Value Reference Range Interpretation Comments HPV HIGH RISK INTERP (test code = POSITIVE 55641) HPV 16 (test code = 65470) NEGATIVE HPV 18 (test code = 32444) NEGATIVE HPV, HR, OTHER GENOTYPES (test code POSITIVE = 06179) [id number] 00:00:00 Test Item Value Reference Range Interpretation Comments RPR RESULT (test code = NON-REACTIVE 3501) RPR TITER (test code = 3500) NOT INDIC. TITER [id number] 00:00:00 Test Item Value Reference Range Interpretation Comments RPR RESULT (test code = NON-REACTIVE 3501) RPR TITER (test code = 3500) NOT INDIC. TITER [id number] 00:00:00 Test Item Value Reference Range Interpretation Comments RPR RESULT (test code = NON-REACTIVE 3501) RPR TITER (test code = 3500) NOT INDIC. TITER CBC W/AUTO [id number] 00:00:00 Test Item Value Reference Range Interpretation [...] NUCLEATED RBCS (test code = 0.00 K/UL 41831) CBC W/AUTO [id number] 00:00:00 Test Item Value Reference Range Interpretation [...] NUCLEATED RBCS (test code = 0.00 K/UL 26325) GC AND CHLAMYDIA AMPLIFIED, [id number] 00:00:00 Test Item Value Reference Range Interpretation Comments GONORRHEA, TMA (test code = 98812) NEGATIVE CHLAMYDIA, TMA (test code = 34475) NEGATIVE GC AND CHLAMYDIA AMPLIFIED, [id number] 00:00:00 Test Item Value Reference Range Interpretation Comments GONORRHEA, TMA (test code = 15476) NEGATIVE CHLAMYDIA, TMA (test code = 47391) NEGATIVE CBC W/AUTO [id number] 00:00:00 Test Item Value Reference Range Interpretation [...] NUCLEATED RBCS (test code = 0.00 K/UL 15397) VAGINAL PATHOGENS DNA [id number] 00:00:00 Test Item Value Reference Range Interpretation Comments KATE SPECIES (test code = ) NEGATIVE G. VAGINALIS (test code = ) POSITIVE T. VAGINALIS (test code = ) NEGATIVE VAGINAL PATHOGENS DNA [id number] 00:00:00 Test Item Value Reference Range Interpretation Comments KATE SPECIES (test code = ) NEGATIVE G. VAGINALIS (test code = ) POSITIVE T. VAGINALIS (test code = ) NEGATIVE HPV HIGH RISK WITH GENOTYPE, [id number] 00:00:00 Test Item Value Reference Range Interpretation Comments HPV HIGH RISK INTERP (test code = POSITIVE 89232) HPV 16 (test code = 43556) NEGATIVE HPV 18 (test code = 65617) NEGATIVE HPV, HR, OTHER GENOTYPES (test code POSITIVE = 26890) SARS-CoV-2 (COVID-19) by RT-PCR (HIGH RISK)2020-09-04 00:00:00 Test Item Value Reference Range Interpretation Comments SARS-CoV-2 INTERPRETATION (test NEGATIVE code = 62635) SOURCE (test code = 19776) NOT SPECIFIED SARS-CoV-2 (COVID-19) by RT-PCR (HIGH RISK)2020-09-04 00:00:00 Test Item Value Reference Range Interpretation Comments SARS-CoV-2 INTERPRETATION (test NEGATIVE code = 98968) SOURCE (test code = 07553) NOT SPECIFIED BASIC METABOLIC [id number] 18:41:00 Test Item Value Reference Range Interpretation [...] Unit/L 26-192 N CK) Completed by Nursing: [id number] 18:41:00 Test Item Value Reference Range Interpretation [...] Completed by Nursing: NO- XR CHEST 1 [id number] 18:36:00 [facility] 1990 Sex: F Name: JULISSA CARR [facility] : 1990 Age/S: 30 / F [address] Unit #: [id number] Loc: [place] [address] Phys: Candy Castro MD Acct: [id number] Dis Date: Status: REG ER PHONE #: [phone] Exam Date: 06/17/20201826 FAX #: Reason: chest pain EXAMS: CPT:[id number] XR CHEST 1 V 50840 Fluoro Time: DAP (Gy m2): Air Kerma (mGy): EXAM: CHEST ONE VIEW INDICATI ON: CHEST PAIN LOCATION: B2 COMPARISON: None available TECHNIQUE: AP view of the chest FINDINGS: Theheart size is normal. The lungs are clear bilaterally. The pulmonary vasculature is normal. No pneumothorax or pleural effusion is identified. The osseous structures are normal. IMPRESSION: No acute car diopulmonary process. at 1836 Reported and signed by: Soniya Armstrong M.D. CC: Candy Castro MD; Natalia TRUJILLO PAGE 1 Signed Report Name: JULISSA CARR [facility] : 1990 Age/S: 30 / F [address] Unit #: [id number] Loc: [place] [address] Phys: Candy Castro MD Acct: [id number] Dis Date: Status: REG ER PHONE #: [phone] Exam Date: 06/17/20201826 FAX #: Reason: chest pain EXAMS: CPT: [id number] XR CHEST 1 V 21682 Fluoro Time: DAP (Gy m2): Air Kerma (mGy): (Continued) Technologist: Sparkle Breaux RT(R)(CT) Trnscb Date/Time: 06/17/2020 (1835) 16 Orig Print D/T: S: 06/17/2020 (1838) PAGE 2 Signed ReportCBC W/O [id number] 18:23:00 Test Item Value Reference Range Interpretation [...] Comments SARS-CoV-2 INTERPRETATION (test NEGATIVE code = 83070) SOURCE (test code = 51609) NOT SPECIFIED SARS-CoV-2 (COVID-19) by RT-PCR (HIGH RISK)2020-06-08 00:00:00 Test Item Value Reference Range Interpretation Comments SARS-CoV-2 INTERPRETATION (test NEGATIVE code = 83563) SOURCE (test code = 31487) NOT SPECIFIED SARS-CoV-2 (COVID-19) by RT-PCR (HIGH RISK)2020-03-29 00:00:00 Test Item Value Reference Range Interpretation Comments SARS-CoV-2 INTERPRETATION Negative (test code = 66181) SOURCE (test code = 81915) Nasal_Swab_in_VTM__ UTM PAP TEST, THINPREP, [id number] 00:00:00 Test Item Value Reference Range Interpretation Comments SOURCE: (test code = 8001) Cervical/Endocervic al SLIDES: (test code = 8011) 1 LMP: (test code = 8021) 01/26/2020 SPECIMEN ADEQUACY: (test (NOTE) code = 69087) INTERPRETATION: (test code ASCUS/EPITH. = 11101) ABNORMALITY; SEE BELOW SHIPPING AND RECEIVING ASSOCIATE: (test [place] code = 8101) SEBASTIAN Plaomares(ASCP)IAC QC TECHNOLOGIST: (test Nabila Epps code = 8111) PATHOLOGIST INTERPRETATION [place] BY: (test code = 8122) LOCATION: (test code = (NOTE) 96709) CPT: (test code = 8140) (NOTE) PAP TEST, THINPREP, [id number] 00:00:00 Test Item Value Reference Range Interpretation Comments SOURCE: (test code = 8001) Cervical/Endocervic al SLIDES: (test code = 8011) 1 LMP: (test code = 8021) 01/26/2020 SPECIMEN ADEQUACY: (test (NOTE) code = 17209) INTERPRETATION: (test code ASCUS/EPITH. = 83879) ABNORMALITY; SEE BELOW SHIPPING AND RECEIVING ASSOCIATE: (test [place] code = 8101) SEBASTIAN Palomares(ASCP)IAC QC TECHNOLOGIST: (test Nabila Epps code = 8111) PATHOLOGIST INTERPRETATION [place] BY: (test code = 8122) LOCATION: (test code = (NOTE) 55495) CPT: (test code = 8140) (NOTE) HPV HIGH RISK WITH GENOTYPE, [id number] 00:00:00 Test Item Value Reference Range Interpretation Comments HPV HIGH RISK INTERP (test POSITIVE code = 45792) HPV 16 (test code = 19380) NEGATIVE HPV 18 (test code = 27197) NEGATIVE HPV, HR, OTHER GENOTYPES TEST NOT PERFORMED (test code = 19261) HPV HIGH RISK WITH GENOTYPE, [id number] 00:00:00 Test Item Value Reference Range Interpretation Comments HPV HIGH RISK INTERP (test POSITIVE code = 93137) HPV 16 (test code = 21327) NEGATIVE HPV 18 (test code = 81821) NEGATIVE HPV, HR, OTHER GENOTYPES TEST NOT PERFORMED (test code = 90364) [id number] 00:00:00 Test Item Value Reference Range Interpretation Comments TSH, THIRD GENERATION (test code 1.510 UIU/ML = 2821) [id number] 00:00:00 Test Item Value Reference Range Interpretation Comments TSH, THIRD GENERATION (test code 1.510 UIU/ML = 2821) [id number] 00:00:00 Test Item Value Reference Range Interpretation Comments TSH, THIRD GENERATION (test code 1.510 UIU/ML = 2821) HEMOGLOBIN [id number] 00:00:00 Test Item Value Reference Range Interpretation Comments HEMOGLOBIN A1c (test code = 06856) 5.7 % HEMOGLOBIN [id number] 00:00:00 Test Item Value Reference Range Interpretation Comments HEMOGLOBIN A1c (test code = 67338) 5.7 % HEMOGLOBIN [id number] 00:00:00 Test Item Value Reference Range Interpretation Comments HEMOGLOBIN A1c (test code = 05420) 5.7 % LIPID [id number] 00:00:00 Test Item Value Reference Range Interpretation Comments CHOLESTEROL (test code = 2210) 163 MG/DL TRIGLYCERIDES (test code = 2232) 204 MG/DL HDL CHOLESTEROL (test code = 2220) 48 MG/DL CALC LDL CHOL (test code = 2237) 85 MG/DL RISK RATIO LDL/HDL (test code = 1.77 RATIO 2238) LIPID [id number] 00:00:00 Test Item Value Reference Range Interpretation Comments CHOLESTEROL (test code = 2210) 163 MG/DL TRIGLYCERIDES (test code = 2232) 204 MG/DL HDL CHOLESTEROL (test code = 2220) 48 MG/DL CALC LDL CHOL (test code = 2237) 85 MG/DL RISK RATIO LDL/HDL (test code = 1.77 RATIO 2238) COMPREHENSIVE METABOLIC [id number] 00:00:00 Test Item Value Reference Range Interpretation Comments GLUCOSE (test code = 2217) 128 MG/DL BUN (test code = 2208) 10 MG/DL CREATININE (test code = 2214) 0.80 MG/DL eGFR AMER. (test code 113 ML/MIN/1.73 = 36538) eGFR NON- AMER. (test 98 ML/MIN/1.73 code = 10176) CALC BUN/CREAT (test code = 13 RATIO [...] code = 2219) 13 U/L COMPREHENSIVE METABOLIC [id number] 00:00:00 Test Item Value Reference Range Interpretation Comments GLUCOSE (test code = 2217) 128 MG/DL BUN (test code = 2208) 10 MG/DL CREATININE (test code = 2214) 0.80 MG/DL eGFR AMER. (test code 113 ML/MIN/1.73 = 60605) eGFR NON- AMER. (test 98 ML/MIN/1.73 code = 50804) CALC BUN/CREAT (test code = 13 RATIO [...] 2239) CALC A/G RATIO (test code = 1.4 RATIO 2233) BILIRUBIN, TOTAL (test code = 0.4 MG/DL 2206) ALKALINE PHOSPHATASE (test 65 U/L code = 2204) AST (test code = 2218) 19 U/L ALT (test code = 2219) 13 U/L SARS-CoV-2 (COVID-19) by RT-PCR (HIGH RISK)2020-01-05 00:00:00 Test Item Value Reference Range Interpretation Comments SARS-CoV-2 INTERPRETATION (test NEGATIVE code = 52717) SOURCE (test code = 70578) NOT SPECIFIED SARS-CoV-2 (COVID-19) by RT-PCR (HIGH RISK)2020-01-05 00:00:00 Test Item Value Reference Range Interpretation Comments SARS-CoV-2 INTERPRETATION (test NEGATIVE code = 16501) SOURCE (test code = 32337) NOT SPECIFIED SARS-CoV-2 (COVID-19) by RT-PCR (HIGH RISK)2020-01-04 00:00:00 Test Item Value Reference Range Interpretation Comments SARS-CoV-2 INTERPRETATION (test NEGATIVE code = 38397) SOURCE (test code = 85810) NOT SPECIFIED SARS-CoV-2 (COVID-19) by RT-PCR (HIGH RISK)2020-01-04 00:00:00 Test Item Value Reference Range Interpretation Comments SARS-CoV-2 INTERPRETATION (test NEGATIVE code = 70408) SOURCE (test code = 35428) NOT SPECIFIED SARS-CoV-2 (COVID-19) by RT-PCR (HIGH RISK)2019-12-26 00:00:00 Test Item Value Reference Range Interpretation Comments SARS-CoV-2 INTERPRETATION (test POSITIVE code = 60908) SOURCE (test code = 83007) NOT SPECIFIED SARS-CoV-2 (COVID-19) by RT-PCR (HIGH RISK)2019-12-26 00:00:00 Test Item Value Reference Range Interpretation Comments SARS-CoV-2 INTERPRETATION (test POSITIVE code = 16910) SOURCE (test code = 37191) NOT SPECIFIED CULTURE, [id number] 00:00:00 Test Item Value Reference Range Interpretation Comments CULTURE, URINE (test SPECIMEN NUMBER: code = 50094) [id number] CULTURE, [id number] 00:00:00 Test Item Value Reference Range Interpretation Comments CULTURE, URINE (test SPECIMEN NUMBER: code = 84672) [id number] TRICHOMONAS, URINE, [id number] 00:00:00 Test Item Value Reference Range Interpretation Comments TRICHOMONAS, URINE, AMP (test code = NEGATIVE 66464) TRICHOMONAS, URINE, [id number] 00:00:00 Test Item Value Reference Range Interpretation Comments TRICHOMONAS, URINE, AMP (test code = NEGATIVE 27481) GC AND CHLAMYDIA BY [id number] 00:00:00 Test Item Value Reference Range Interpretation Comments CHLAMYDIA BY TMA (test code = 86521) NEGATIVE GONORRHEA BY TMA (test code = 36133) NEGATIVE GC AND CHLAMYDIA BY [id number] 00:00:00 Test Item Value Reference Range Interpretation Comments CHLAMYDIA BY TMA (test code = 09413) NEGATIVE GONORRHEA BY TMA (test code = 73161) NEGATIVE PAP TEST, THINPREP, [id number] 00:00:00 Test Item Value Reference Range Interpretation Comments SOURCE: (test code = Cervical/Endocervical 8001) SLIDES: (test code = 2 8011) LMP: (test code = 01/12/18 8021) SPECIMEN ADEQUACY: (NOTE) (test code = 33248) INTERPRETATION: (test NO EPITHELIAL code = 32440) ABNORMALITY SEE BELOW OTHER COMMENTS: (test (NOTE) code = 8081) SHIPPING AND RECEIVING ASSOCIATE: SEBASTIAN SANDS(ASCP) (test code = 8101) QC TECHNOLOGIST: SEBASTIAN BENTLEY(ASCP) (test code = 8111) LOCATION: (test code (NOTE) = 63048) CPT: (test code = (NOTE) 8140) PAP TEST, THINPREP, [id number] 00:00:00 Test Item Value Reference Range Interpretation Comments SOURCE: (test code = Cervical/Endocervical 8001) SLIDES: (test code = 2 8011) LMP: (test code = 01/12/18 8021) SPECIMEN ADEQUACY: (NOTE) (test code = 26048) INTERPRETATION: (test NO EPITHELIAL code = 86196) ABNORMALITY SEE BELOW OTHER COMMENTS: (test (NOTE) code = 8081) SHIPPING AND RECEIVING ASSOCIATE: SEBASTIAN SANDS(ASCP) (test code = 8101) QC TECHNOLOGIST: SEBASTIAN BENTLEY(ASCP) (test code = 8111) LOCATION: (test code (NOTE) = 65055) CPT: (test code = (NOTE) 8140) HPV HIGH RISK WITH GENOTYPE, [id number] 00:00:00 Test Item Value Reference Range Interpretation Comments HPV HIGH RISK INTERP (test code = NEGATIVE 47454) HPV 16 (test code = 10286) NEGATIVE HPV 18 (test code = 37936) NEGATIVE HPV, HR, OTHER GENOTYPES (test code NEGATIVE = 99633) HIV AB/AG COMBO RFLX [id number] 00:00:00 Test Item Value Reference Range Interpretation Comments HIV 1/2 4TH GEN, RFLX CONF (test NON-REACTIVE code = 3514) TRICHOMONAS, THINPREP, AMP [ADDED]2018-02-02 00:00:00 Test Item Value Reference Range Interpretation Comments TRICHOMONAS, THINPREP, AMP (test Negative code = 94289) [id number] 00:00:00 Test Item Value Reference Range Interpretation Comments RPR RESULT (test code = NON-REACTIVE 3501) RPR TITER (test code = 3500) NOT INDIC. TITER [id number] 00:00:00 Test Item Value Reference Range Interpretation Comments RPR RESULT (test code = NON-REACTIVE 3501) RPR TITER (test code = 3500) NOT INDIC. TITER TRICHOMONAS, THINPREP, AMP [ADDED]2018-02-02 00:00:00 Test Item Value Reference Range Interpretation Comments TRICHOMONAS, THINPREP, AMP (test Negative code = 71558) [id number] 00:00:00 Test Item Value Reference Range Interpretation Comments RPR RESULT (test code = NON-REACTIVE 3501) RPR TITER (test code = 3500) NOT INDIC. TITER LIPID [id number] 00:00:00 Test Item Value Reference Range Interpretation Comments CHOLESTEROL (test code = 2210) 180 MG/DL TRIGLYCERIDES (test code = 2232) 135 MG/DL HDL CHOLESTEROL (test code = 2220) 58 MG/DL CALC LDL CHOL (test code = 2237) 95 MG/DL RISK RATIO LDL/HDL (test code = 1.64 RATIO 2238) LIPID [id number] 00:00:00 Test Item Value Reference Range Interpretation Comments CHOLESTEROL (test code = 2210) 180 MG/DL TRIGLYCERIDES (test code = 2232) 135 MG/DL HDL CHOLESTEROL (test code = 2220) 58 MG/DL CALC LDL CHOL (test code = 2237) 95 MG/DL RISK RATIO LDL/HDL (test code = 1.64 RATIO 2238) COMPREHENSIVE METABOLIC [id number] 00:00:00 Test Item Value Reference Range Interpretation Comments GLUCOSE (test code = 2217) 92 MG/DL BUN (test code = 2208) 7 MG/DL CREATININE (test code = 2214) 0.75 MG/DL eGFR AMER. (test code 124 ML/MIN/1.73 = 70991) eGFR NON- AMER. (test 107 ML/MIN/1.73 code = 80220) CALC BUN/CREAT (test code = 9 RATIO 2235) SODIUM (test code = 2231) 140 MEQ/L POTASSIUM (test code = 2228) 4.5 MEQ/L CHLORIDE (test code = 2215) 101 MEQ/L CARBON DIOXIDE (test code = 28 MEQ/L 2205) CALCIUM (test code = 2209) 9.4 MG/DL PROTEIN, TOTAL (test code = 7.4 G/DL 2228) ALBUMIN (test code = 2201) 4.4 G/DL CALC GLOBULIN (test code = 3.0 G/DL 2239) CALC A/G RATIO (test code = 1.5 RATIO 2234) BILIRUBIN, TOTAL (test code = 0.6 MG/DL 2206) ALKALINE PHOSPHATASE (test 70 U/L code = 2204) AST (test code = 2218) 21 U/L ALT (test code = 2219) 11 U/L COMPREHENSIVE METABOLIC [id number] 00:00:00 Test Item Value Reference Range Interpretation Comments GLUCOSE (test code = 2217) 92 MG/DL BUN (test code = 2208) 7 MG/DL CREATININE (test code = 2214) 0.75 MG/DL eGFR AMER. (test code 124 ML/MIN/1.73 = 51338) eGFR NON- AMER. (test 107 ML/MIN/1.73 code = 79098) CALC BUN/CREAT (test code = 9 RATIO 2235) SODIUM (test code = 2231) 140 MEQ/L POTASSIUM (test code = 2228) 4.5 MEQ/L CHLORIDE (test code = 2215) 101 MEQ/L CARBON DIOXIDE (test code = 28 MEQ/L 220) CALCIUM (test code = 2209) 9.4 MG/DL PROTEIN, TOTAL (test code = 7.4 G/DL 2228) ALBUMIN (test code = 2201) 4.4 G/DL CALC GLOBULIN (test code = 3.0 G/DL 2240) CALC A/G RATIO (test code = 1.5 RATIO 2234) BILIRUBIN, TOTAL (test code = 0.6 MG/DL 2206) ALKALINE PHOSPHATASE (test 70 U/L code = 2204) AST (test code = 2218) 21 U/L ALT (test code = 2219) 11 U/L ACUTE HEPATITIS [id number] 00:00:00 Test Item Value Reference Range Interpretation Comments HEPATITIS A IgM (test code = NON-REACTIVE 93212) HEPATITIS B CORE IgM (test code NON-REACTIVE = 7410) HEPATITIS B SURF AG (test code = NON-REACTIVE 3128) HEPATITIS C ANTIBODY (test code NON-REACTIVE = 4621) INTERPRETATION HEPATITIS A: (NOTE) (test code = 2552) INTERPRETATION HEPATITIS B: (NOTE) (test code = 80624) INTERPRETATION HEPATITIS C: (NOTE) (test code = 43258) GC AND CHLAMYDIA AMPLIFIED, [id number] 00:00:00 Test Item Value Reference Range Interpretation Comments GONORRHEA, TMA (test code = 54717) NEGATIVE CHLAMYDIA, TMA (test code = 38043) NEGATIVE ACUTE HEPATITIS [id number] 00:00:00 Test Item Value Reference Range Interpretation Comments HEPATITIS A IgM (test code = NON-REACTIVE 78754) HEPATITIS B CORE IgM (test code NON-REACTIVE = 4644) HEPATITIS B SURF AG (test code = NON-REACTIVE 2739) HEPATITIS C ANTIBODY (test code NON-REACTIVE = 4675) INTERPRETATION HEPATITIS A: (NOTE) (test code = 2552) INTERPRETATION HEPATITIS B: (NOTE) (test code = 15540) INTERPRETATION HEPATITIS C: (NOTE) (test code = 44784) GC AND CHLAMYDIA AMPLIFIED, [id number] 00:00:00 Test Item Value Reference Range Interpretation Comments GONORRHEA, TMA (test code = 71817) NEGATIVE CHLAMYDIA, TMA (test code = 28516) NEGATIVE HEMOGLOBIN [id number] 00:00:00 Test Item Value Reference Range Interpretation Comments HEMOGLOBIN A1c (test code = 79077) 5.4 % HEMOGLOBIN [id number] 00:00:00 Test Item Value Reference Range Interpretation Comments HEMOGLOBIN A1c (test code = 03066) 5.4 % HEMOGLOBIN [id number] 00:00:00 Test Item Value Reference Range Interpretation Comments HEMOGLOBIN A1c (test code = 41915) 5.4 % HIV AB/AG COMBO RFLX [id number] 00:00:00 Test Item Value Reference Range Interpretation Comments HIV 1/2 4TH GEN, RFLX CONF (test NON-REACTIVE code = 3514) HPV HIGH RISK WITH GENOTYPE, [id number] 00:00:00 Test Item Value Reference Range Interpretation Comments HPV HIGH RISK INTERP (test code = NEGATIVE 68589) HPV 16 (test code = 41100) NEGATIVE HPV 18 (test code = 27504) NEGATIVE HPV, HR, OTHER GENOTYPES (test code NEGATIVE = 89093)
[2022-10-16] MEDS ORDERED: LIDOCAINE VISCOUS 2% SOLN 15 ML UDC ONE (11:30)
[2022-10-16] MEDS ORDERED: HYDROMORPHONE HCL 1 MG/ML INJ ONE (11:30)
[2022-10-16] MEDS ORDERED: MAGNES/ALUMIN/SIMET 30ML UCUP ONE (11:30)
[2022-10-16] MEDS ORDERED: NA CHLORIDE 0.9% 1,000 ML ONE (11:30)
--- NOTE | 2022-10-16 12:27 | ER ---
Nurse's Notes [facility] Name: Chastity Otto Age: 32 yrs Sex: Female : 1990 Arrival Date: 10/16/2022 Time: 11:08 Bed 15 Private MD: Diagnosis: Acute pharyngitis, unspecified-post operative Presentation: 10/16 11:16 Chief complaint: Pt had tonsillectomy 10/[address] Abbasi, c/o throat pain 03/29. hb Coronavirus screen: At this time, the client does not indicate any symptoms associated with coronavirus-19. Ebola Screen: No symptoms or risks identified at this time. Initial Sepsis Screen: Does the patient meet any 2 criteria? No. Patient's initial sepsis screen is negative. Does the patient have a suspected source of infection? No. Patient's initial sepsis screen is negative. Risk Assessment: Do you want to hurt yourself or someone else? Patient reports no desire to harm self or others. Onset of symptoms was October 11, 2022. 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 - Social history:: Smoking status: Patient denies any tobacco usage or history of. Screenin:10 [facility] ED Fall Risk Assessment (Adult) History of falling in the last 3 months, kr3 including since admission No falls in past 3 months (0 pts) Confusion or Disorientation No (0 pts) Intoxicated or Sedated No (0 pts) Impaired Gait No (0 pts) Mobility Assist Device Used No (0 pt) Altered Elimination No (0 pt) Score/Fall Risk Level 0 - 2 = Low Risk Oriented to surroundings, Maintained a safe environment, Educated pt \T\ family on fall prevention, incl call for assistance when getting out of bed, Assessed \T\ reinforced patient's understanding of fall precautions, Hourly rounding (assess needs \T\ fall precautionary measures) done. Abuse screen: Denies threats or abuse. Nutritional screening: No deficits noted. Tuberculosis screening: No symptoms or risk factors identified. Assessment: 11:51 General: Appears in no apparent distress. uncomfortable, Behavior is calm, cooperative, kr3 appropriate for age. Pain: Complains of pain in neck. Neuro: Level of Consciousness is awake, alert, obeys commands, Oriented to person, place, time, situation. Cardiovascular: Patient's skin is warm and dry. Respiratory: Airway is patent Respiratory effort is even, unlabored, Respiratory pattern is regular, symmetrical. GI: No signs and/or symptoms were reported involving the gastrointestinal system. : No signs and/or symptoms were reported regarding the genitourinary system. EENT: No signs and/or symptoms were reported regarding the EENT system. Derm: No signs and/or symptoms reported regarding the dermatologic system. Musculoskeletal: No signs and/or symptoms reported regarding the musculoskeletal system. 12:15 Reassessment: No changes from previously documented assessment. Patient and/or family kr3 updated on plan of care and expected duration. Pain level reassessed. Patient is alert, oriented x 3, equal unlabored respirations, skin warm/dry/pink. patient sleeping. 12:31 Reassessment: patient will be discharged once fluid infusion is complete. kr3 14:09 Reassessment: Patient appears in no apparent distress at this time. Patient and/or kr3 family updated on plan of care and expected duration. Pain level reassessed. Patient is alert, oriented x 3, equal unlabored respirations, skin warm/dry/pink. Vital Signs: 11:16 BP 153 / 109; Pulse 90; Resp 16; Temp 97.8(TE); Pulse Ox 97% on R/A; Weight 131.54 kg; hb Height 5 ft. 5 in. ; Pain 10/10; 12:16 BP 139 / 90; Pulse 68; Resp 18; Pulse Ox 94% on R/A; kr3 14:09 BP 148 / 96; Pulse 62; Resp 18; Pulse Ox 99% on R/A; kr3 11:16 Body Mass Index 48.26 (131.54 kg, 165.1 cm) hb 11:16 Pain Scale: Adult hb ED Course: 11:10 Patient arrived in ED. ts1 11:11 Yarelis Sim[facility]-C [facility] snw 11:11 Elmer Burgess DO is Attending Physician. snw 11:18 Triage completed. hb 11:18 Arm band placed on. hb 11:20 Marisa Ferris, RN is Primary Nurse. kr3 11:20 Bed in low position. Call light in reach. Side rails up X 1. kr3 11:51 Inserted saline lock: 22 gauge in right antecubital area, using aseptic technique. kr3 12:26 Shannon Abbasi MD is Referral Physician. snw 14:10 No provider procedures requiring assistance completed. IV discontinued, intact, kr3 bleeding controlled, No redness/swelling at site. Pressure dressing applied. Administered Medications: 11:50 Drug: NS 0.9% IV 1000 ml Route: IV; Rate: 1 bolus; Site: right antecubital; kr3 14:11 Follow up: Response: No adverse reaction; IV Status: Completed infusion; IV Intake: kr3 1000ml 11:50 Drug: HYDROmorphone IVP 1 mg Route: IVP; Site: right antecubital; kr3 12:15 Follow up: Response: No adverse reaction; RASS: Drowsy (-1) kr3 11:51 Drug: GI Cocktail without - (Maalox PO Suspension 30 ml, Lidocaine Mucous kr3 Membrane Liquid 2 % 15 ml) Route: PO; 12:15 Follow up: Response: No adverse reaction kr3 Medication: 14:11 VIS not applicable for this client. kr3 Intake: 14:11 IV: 1000ml; Total: 1000ml. kr3 Outcome: 12:26 Discharge ordered by . snw 14:10 Discharged to home ambulatory. kr3 14:10 Condition: stable 14:10 Discharge instructions given to patient, Instructed on discharge instructions, follow up and referral plans. Demonstrated understanding of instructions, follow-up care. 14:11 Patient left the ED. kr3 Signatures: Yarelis Sims FNP-C COMPENSATION SPECIALIST-Csnw Jacki Frazier RN RN Marisa eFrris RN RN kr3 Meenu Back PAS PAS ts1 Corrections: (The following items were deleted from the chart) 11:18 11:16 Chief complaint: hb hb
--- NOTE | 2022-10-16 12:27 | EDPHYS ---
Physician Documentation [facility] Name: Chastity Otto Age: 32 yrs Sex: Female : 1990 Arrival Date: 10/16/2022 Time: 11:08 Bed 15 Private MD: ED Physician Elmer Burgess HPI: 10/16 11:16 This 32 yrs old Black Female presents to ER via Unassigned with complaints of Post snw Surgical Pain. 11:16 Onset: The symptoms/episode began/occurred pt had tonsillectomy Tuesday10/11/[address] adriel Abbasi. Associated signs and symptoms: The patient has no apparent associated signs or symptoms. The patient has been recently seen by a physician:. 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 - Social history:: Smoking status: Patient denies any tobacco usage or history of. ROS: 11:15 Constitutional: Negative for fever, chills, and weight loss, Eyes: Negative for injury, snw pain, redness, and discharge, Neck: Negative for injury, pain, and swelling, Cardiovascular: Negative for chest pain, palpitations, and edema, Respiratory: Negative for shortness of breath, cough, wheezing, and pleuritic chest pain, Abdomen/GI: Negative for abdominal pain, nausea, vomiting, diarrhea, and constipation, Back: Negative for injury and pain, : Negative for injury, bleeding, discharge, and swelling, MS/Extremity: Negative for injury and deformity, Skin: Negative for injury, rash, and discoloration, Neuro: Negative for headache, weakness, numbness, tingling, and seizure, Psych: Negative for depression, anxiety, suicide ideation, homicidal ideation, and hallucinations. 11:15 ENT: Positive for sore throat. Exam: 11:15 Constitutional: This is a well developed, well nourished patient who is awake, alert, snw and in no acute distress. Head/Face: Normocephalic, atraumatic. Eyes: Pupils equal round and reactive to light, extra-ocular motions intact. Lids and lashes normal. Conjunctiva and sclera are non-icteric and not injected. Cornea within normal limits. Periorbital areas with no swelling, redness, or edema. Neck: Trachea midline, no thyromegaly or masses palpated, and no cervical lymphadenopathy. Supple, full range of motion without nuchal rigidity, or vertebral point tenderness. No Meningismus. Chest/axilla: Normal chest wall appearance and motion. Nontender with no deformity. No lesions are appreciated. Cardiovascular: Regular rate and rhythm with a normal S1 and S2. No gallops, murmurs, or rubs. Normal PMI, no JVD. No pulse deficits. Respiratory: Lungs have equal breath sounds bilaterally, clear to auscultation and percussion. No rales, rhonchi or wheezes noted. No increased work of breathing, no retractions or nasal flaring. Abdomen/GI: Soft, non-tender, with normal bowel sounds. No distension or tympany. No guarding or rebound. No evidence of tenderness throughout. Back: No spinal tenderness. No costovertebral tenderness. Full range of motion. Skin: Warm, dry with normal turgor. Normal color with no rashes, no lesions, and no evidence of cellulitis. MS/ Extremity: Pulses equal, no cyanosis. Neurovascular intact. Full, normal range of motion. Neuro: Awake and alert, GCS 15, oriented to person, place, time, and situation. Cranial nerves II-XII grossly intact. Motor strength 5/5 in all extremities. Sensory grossly intact. Cerebellar exam normal. Normal gait. Psych: Awake, alert, with orientation to person, place and time. Behavior, mood, and affect are within normal limits. 11:15 ENT: Mouth: is normal, Posterior pharynx: healing well s/p tonsillectomy. Vital Signs: 11:16 BP 153 / 109; Pulse 90; Resp 16; Temp 97.8(TE); Pulse Ox 97% on R/A; Weight 131.54 kg; hb Height 5 ft. 5 in. ; Pain 10/10; 12:16 BP 139 / 90; Pulse 68; Resp 18; Pulse Ox 94% on R/A; kr3 14:09 BP 148 / 96; Pulse 62; Resp 18; Pulse Ox 99% on R/A; kr3 11:16 Body Mass Index 48.26 (131.54 kg, 165.1 cm) hb 11:16 Pain Scale: Adult hb MDM: 11:11 Patient medically screened. snw 11:17 Differential diagnosis: post op bleed, post op pain. Data reviewed: vital signs, nurses snw notes. Counseling: I had a detailed discussion with the patient and/or guardian regarding: the historical points, exam findings, and any diagnostic results supporting the discharge/admit diagnosis, the need for outpatient follow up, to return to the emergency department if symptoms worsen or persist or if there are any questions or concerns that arise at home. Special discussion: Based on the history and exam findings, there is no indication for further emergent testing or inpatient evaluation. I discussed with the patient/guardian the need to see the ENT specialist for further evaluation of the symptoms. 12:03 ED course: Pt resting, ivf infusing, family at bedside. Pt is feeling much better. Will snw dc home post IVF completion. Administered Medications: 11:50 Drug: NS 0.9% IV 1000 ml Route: IV; Rate: 1 bolus; Site: right antecubital; kr3 14:11 Follow up: Response: No adverse reaction; IV Status: Completed infusion; IV Intake: kr3 1000ml 11:50 Drug: HYDROmorphone IVP 1 mg Route: IVP; Site: right antecubital; kr3 12:15 Follow up: Response: No adverse reaction; RASS: Drowsy (-1) kr3 11:51 Drug: GI Cocktail without - (Maalox PO Suspension 30 ml, Lidocaine Mucous kr3 Membrane Liquid 2 % 15 ml) Route: PO; 12:15 Follow up: Response: No adverse reaction kr3 Disposition: 13:10 Co-signature as Attending Physician, Elmer CHAMPION was immediately available on-site ms3 in the Emergency Department for consultation in the care of the patient. Disposition Summary: 10/16/22 12:26 Discharge Ordered Location: Home snw Condition: Stable snw Diagnosis - Acute pharyngitis, unspecified - post operative snw Followup: snw - With: Emergency Department - When: As needed - Reason: Worsening of condition Followup: snw - With: - When: 2 - 3 days - Reason: Recheck today's complaints, Continuance of care, Re-evaluation by your physician Discharge Instructions: - Discharge Summary Sheet snw - Sore Throat snw Forms: - Medication Reconciliation Form snw - Thank You Letter snw - Antibiotic Education snw - Prescription Opioid Use snw Signatures: Yarelis Sims, DRILLING RIG OPERATOR-C DRILLING RIG OPERATOR-Csnw Jacki Frazier, RN RN Elmer Burgess DO DO ms3 Marisa Ferris RN RN kr3
[2022-10-16 14:53] VITALS: TEMP 97.8
[2022-10-16 14:55] VITALS: BP 148/96; O2SAT 99
== END 2022-10-16 14:11 | disposition home or self-care (01) ==
LOC: ER 11:08
DX: J02.9 Acute pharyngitis, unspecified (principal); Z98.890 Other specified postprocedural states; I10 Essential (primary) hypertension; Z88.2 Allergy status to sulfonamides
CPT/HCPCS: J1170; J7030; 96361; 96374; 99284

== ENCOUNTER 2023-05-10 06:56 | Emergency (ER) | payer OTHER ==
--- OUTSIDE RECORDS SUMMARY | 2023-05-10 07:00 | XMS REPORT | Continuity of Care Document ---
:1990 Author Organization [facility] t Address [address] [place] [address] Care Team Providers Name Role Phone ZACK BOWLING Primary Care Physician Unavailable RADIOLOGY Attending Clinician Unavailable Radiology Attending Clinician Unavailable Susy Abbasi Attending Clinician Unavailable ZACK BOWLING Admitting Clinician Unavailable Physician, No Primary or Family Admitting Clinician Unavaila ble Payers Payer Name Policy Type Policy Number Effective Date Expiration Date S philip [facility] [id number] 2022 HEALTHCARE 00:00:00 Problems This patient has no known problems. [...] Medical ics) Center NO KNOWN Drug Active Univers [facility]ERGIE Class [facility] Social History Social Habit Start Date Stop Date Quantity Comments Source Gender identity Universit y [facility] Sexual orientation Univer [facility] Sex Assigned At [birth year] [facility] 00:00:00 00:00:00 Medical Branch Smoking Status Start Date Stop Date Source Tobacco smoking consumption Univ [facility] Branch Medications Ordered Filled Start Stop Current Ordering Indication Dosage Frequency Signature Comments Components Source Medication Medication Date Date Medication? Clinician (SIG) Name Name Dose 2021- No Unknown 12-16 00:00: 00 TAKE BY 2021-0 No MOUTH 6-29 DIRECTED ON 00:00: INSIDE OF 00 PACKAGE TAKE BY 2021-0 No MOUTH 12-16 DIRECTED ON 00:00: INSIDE OF 00 PACKAGE [...] Flagyl 500 2020-0 No 1mg mg tablet 6-24 00:00: 00 ibuprofen 1-0 No 1mg 400 mg 6-22 tablet 00:00: 00 cetirizine 1-0 No 1mg 10 mg 3-15 tablet 00:00: 00 amlodipine 2020-0 No 1mg 5 mg tablet 3-08 00:00: 00 amlodipine 2020-0 No 1mg 5 mg tablet 1-04 00:00: 00 amlodipine 2019- No 1mg 10 mg 2-20 tablet 00:00: 00 amlodipine 2019-1 No 1mg 5 mg tablet 1-19 00:00: 00 amoxicillin 2019-1 No 1mg 500 mg 0-07 tablet 00:00: 00 amlodipine 2020-0 No 1mg 5 mg tablet 03-13 00:00: 00 metoprolol 2019-0 No 1mg succinate 917 ER 25 mg 00:00: tablet,exte 00 nded release 24 hr amlodipine 2019-0 No 1mg 2.5 mg 9- tablet 00:00: 00 Diflucan 2018-0 No 1mg 150 mg 9-27 tablet 00:00: 00 nitrofurant 2018-0 No 1mg oin 8-15 monohydrate 00:00: /macrocryst 00 als 100 mg capsule Medrol 4 mg 2017-0 No mg tablet 02-23 00:00: 00 Claritin 10 2017-0 No 1mg mg tablet 02-23 00:00: 00 [...] Procedure Date / Time Performed Performing Clinician Sourc e XR SACRUM AND COCCYX 2023-03-01 20:35:27 Zack Bowling [facility] [id number] Colposcopy 2020-12-23 00:00:00 Cervix Bx Cervix endocrv Curtg Plan of Care Planned Activity Planned Date Details Comments Source Goal Plan of Care Note [code = 07918-1] Goal Plan of Care Note [code = 23767-1] Goal Plan of Care Note [code = 58424-2] Goal Plan of Care Note [code = 81941-8] Goal Plan of Care Note [code = 38346-6] Goal Plan of Care Note [code = 76624-6] Goal Plan of Care Note [code = 11959-6] Goal Plan of Care Note [code = 76745-9] Goal Plan of Care Note [code = 79949-2] Goal Plan of Care Note [code = 35507-9] Goal Plan of Care Note [code = 44594-5] Goal Plan of Care Note [code = 50847-1] Goal Plan of Care Note [code = 42423-3] Goal Plan of Care Note [code = 17063-3] Goal Plan of Care Note [code = 34485-7] Goal Plan of Care Note [code = 32841-4] Goal Plan of Care Note [code = 26768-3] Goal Plan of Care Note [code = 98884-2] Goal Plan of Care Note [code = 16568-9] Goal Plan of Care Note [code = 57329-4] Goal Plan of Care Note [code = 65624-8] Goal Plan of Care Note [code = 81237-9] Goal Plan of Care Note [code = 53351-1] Goal Plan of Care Note [code = 55248-5] Goal Plan of Care Note [code = 54180-0] Goal Plan of Care Note [code = 99961-7] Goal Plan of Care Note [code = 76340-5] Goal Plan of Care Note [code = 45565-0] Goal Plan of Care Note [code = 88185-5] Goal Plan of Care Note [code = 98992-5] Goal Plan of Care Note [code = 63180-1] Goal Plan of Care Note [code = 85654-7] Goal Plan of Care Note [code = 00787-6] Goal Plan of Care Note [code = 19975-9] Goal Plan of Care Note [code = 04746-2] Goal Plan of Care Note [code = 56483-6] Goal Plan of Care Note [code = 66394-9] Goal Plan of Care Note [code = 40132-6] Goal Plan of Care Note [code = 14069-7] Goal Plan of Care Note [code = 80545-7] Goal Plan of Care Note [code = 75068-5] Goal Plan of Care Note [code = 06532-6] Goal Plan of Care Note [code = 05159-3] Goal Plan of Care Note [code = 48209-1] Encounters Start End Encounter Admission Attending Care Care Encounter Source Date/Time Date/Time Type Type Clinicians Facility Department ID 2020-06-17 Inpatient [facility] [id number] [facility] 18:07:00 07 [facility] [place] 2023-04-20 2023-04-20 Outpatient SFA SFA [id number] [place] 16:19:24 16:19:24 1101 F [place] 2023-04-04 2023-04-04 Outpatient SFA SFA [id number] 023 [place] 17:39:07 17:39:07 1016 [place] 2023-03-01 2023-03-01 Outpatient R RADIOLOGY [facility] [id number] Univers 14:55:14 23:59:00 ity [facility] 2023-03-01 2023-03-01 Hospital Radiology [facility] [id number] Univers 14:55:14 23:59:00 [facility] [place] [id number] [id number] [facility] [address] 2023-02-16 2023-02-16 Outpatient R RADIOLOGY [facility] [id number] Univers 00:00:00 00:00:00 ity [facility] 2022-12-28 2022-12-28 Outpatient SFA SFA [id number] 023 [place] 11:20:17 11:20:17 0711 F [place] 2022-11-09 2022-11-09 Outpatient SFA SFA [id number] 023 [place] 15:22:15 15:22:15 0523 [place] 2022-10-25 2022-10-25 Outpatient SFA [facility] [id number] 023 [place] 17:59:47 17:59:47 0508 [place] 2022-10-11 2022-10-11 Outpatient Susy Armando [facility] LA00 [id number] [facility] 07:23:00 07:23:00 39 [facility] 2022-09-08 2022-09-08 Outpatient SFA [facility] [id number] 023 [place] 17:20:20 17:20:20 0322 F [place] 2022-08-09 2022-08-09 Outpatient SFA [facility] [id number] 023 [place] 16:55:16 16:55:16 0220 [place] 2022-07-27 2022-07-27 Outpatient R RADIOLOGY [facility] [id number] Univers 14:58:40 23:59:00 ity of [facility] 2022-07-27 2022-07-27 Hospital Radiology [facility] [id number] Univers 14:58:40 23:59:00 Encounter [place] 350.1.13.10 ity [facility] 4.2.7.2.686 [facility] [id number] [facility] [address] 2022-05-31 2022-05-31 Outpatient SFA [facility] [id number] 022 [place] 08:05:34 08:05:34 1212 [place] 2022-05-04 2022-05-04 Outpatient SFA [facility] [id number] 022 [place] 09:33:11 09:33:11 1115 F [place] 2022-05-04 2022-05-04 Outpatient [id number] 00:00:00 00:00:00 Visit [id number] Results Test Description Test Time Test Comments Results Result Comments Source HEMOGLOBIN A1c 2022-11-10 04:05:42 Test Item Value Reference Range Interpretation Comme nts HEMOGLOBIN A1c (test code = 5.9 % 4.2-5.6 H [employer] 59007) GUIDELINES FOR HGB A1C: PREDIABETES/INC REASED RISK . . . . . . . 5.7-6.4% DIAGNO SIS OF DIABETES . . . . . . . . . >=6.5% WITH CONFIRMATION OR APPROPRIATE SYM PTOMS NOTE: ASSAY MAY BE AFFECTED BY HEM OGLOBINOPATHIES (SICKLE CELL ANEMIA, S- C DISEASE, OTHERS) OR ARTIFICIALLY LO WERED BY DECREASED RED CELL SURVIVAL ( HEMOLYTIC ANEMIAS, BLOOD LOSS, ETC.). CO NSIDER ALTERNATE TESTING OR LABORATORY C ONSULTATION. LIPID [id number] 03:44:08 Test Item Value Reference Range Interpretation Comments CHOLESTEROL (test 163 MG/DL <200 code = 2210) TRIGLYCERIDES (test 124 MG/DL <150 code = 2232) HDL CHOLESTEROL (test 49 MG/DL >39 code = 2220) CALC LDL CHOL (test 91 MG/DL <100 NOTE: C ALCULATED LDL code = 2237) IS BASED ON JOHN-BARRERA METHOD WHICHINCLUDES ADJUSTABLE TRIGLYCERIDE:VL DL CHOLESTEROL RAT IO.THIS FACTOR VARIES B Y MEASURED TRIGLY CERIDE AND NON-HDLCHOL ESTEROL CONCENTRATIONS WITH INCREASED CALCU LATED LDL SEENIN HIGH ER TRIGLYCERIDE OR LOWER NON-HDL SPECIME NS. FOR MOREINFORMATION , SEE CLIENT ANNOUNCE MENT AT [email or web address] RISK RATIO LDL/HDL 1.86 RATIO <3.22 (test code = 2238) COMPREHENSIVE METABOLIC [id number] 03:44:08 Test Item Value Reference Range Interpretation Comments GLUCOSE (test code = 101 MG/DL 70-99 H 2216) BUN (test code = 6 MG/DL 6-20 2207) CREATININE (test 0.74 MG/DL 0.60-1.30 code = 2214) eGFR (2020 CKD-EPI) 109 >60 (test code = 38771) ML/MIN/1.73 CALC BUN/CREAT (test 8 RATIO 6-28 code = 2235) SODIUM (test code = 142 MEQ/L 143-135 4525) POTASSIUM (test code 4.2 MEQ/L 3.5-5.4 = 2227) CHLORIDE (test code 105 MEQ/L 95-107 = 2214) CARBON DIOXIDE (test 29 MEQ/L 19-31 code = 220) CALCIUM (test code = 9.6 MG/DL 8.5-10.5 2208) PROTEIN, TOTAL (test 6.8 G/DL 6.1-8.3 code = 2229) ALBUMIN (test code = 4.2 G/DL 3.5-5.2 2200) CALC GLOBULIN (test 2.6 G/DL 1.9-3.7 code = 2240) CALC A/G RATIO (test 1.6 RATIO 1.0-2.6 code = 2234) BILIRUBIN, TOTAL 0.3 MG/DL See_Comment [Automated message] (test code = 2207) [employer] which generated this result transmitted ref erence range: <=1.2. T he reference range was not used to int erpret this result as normal/abnormal . ALKALINE PHOSPHATASE 71 U/L 40-114 (test code = 2203) AST (test code = 10 U/L 9-40 2217) ALT (test code = 6 U/L 5-40 UNLESS OTH ERWISE 2218) INDICATED, ALL TESTING [facility], [id number] [place] [address] DIRECTOR: Ehsan LIGHT ANA NUMBER [id number] CAP ACCREDITATION N O. [id number] 16:05:00 Test Item Value Reference Range Interpretation Comments SURGICAL (test code = SR) R UN DATE: 10/14/22 [facility] PAGE 1 RUN TIME: 1605 Specimen Inquiry RUN USER: INTERFACE P ATIENT: JULISSA CARR LOC: [place] U #: [id number] AGE/SX: 32/F ROOM: RE10/11/22REG DR: Susy Abbasi DO : 86 BED: DIS: STATUS: [facility] TLOC: SPEC #: [id number]:[id number] RECD: 10/11/22 STATUS: MEHRDAD MOTA #: [id number] JONATAN: 10/11/22-1010 [facility] DR: Susy Abbasi DO ENTERED: 10/11/22 SP TYPE: SURGICAL OTHR DR: ORDERED: 79402/2, ANATOMIC SPEC, SPECIMEN TRACK PROCEDURES: 51885 (10/14/22-1546) SPECIMEN TRACK (10/11/22-1150) TISSUES: A. TONSIL, NOS - RIGHT TONSIL B. TONSIL, NOS - LEFT TONSIL FINAL DIAGNOSIS A. Tonsil, right, tonsillectomy:- Chronic tonsillitis (lymphoid hyperplastic changes, mainly follicular), mildly andsuperficially acute- Partly desquamative with focal fungal organisms consistent with Kate spp withinkeratinous debris- Actinomyces bacteria colonies within some of the crypts B. Tonsil, left, tonsillectomy:- Chronic tonsillitis (lymphoid hyperplastic changes, mainly follicular), mildly andsuperficially acute- Partly desquamative with focal fungal organisms consistent with Kate spp withinkeratinous debris Comment: Negative for atypia/malignancy. GROSS DESCRIPTION A. Right tonsil. Received is a tonsil that weighs 5.2 g and measures 3 x 2.3 x 1 cm. Cutsections reveal yellow pink cut surface. Sections submitted as A1. B. Left tonsil. RReceived is a tonsil that weighs 5.2 g and measure 3 x 2 x 1.2 cm. Cutsections reveal yellow pink surface. Sections submitted as B1. Technical tissue processing and slide preparation performed at [employer],[id number] , [place] [address] Unless gross only, the diagnosis is based upon microscopic examination.Immunohistochemistr y: This test was developed and its performance characteristicsdetermined by this laboratory. It has not been approved nor does it need approval by the USFDA. Appropriate positive and negative controls are reviewed and judged to be acceptable.This laboratory is certified under the Clinical Laboratory Improvement Amendments (CLIA-88)as qualified to perform high complexity clinical laboratory testing. CONTINUED ON NEXT PAGE R UN DATE: 10/14/22 [facility] PAGE 2 RUN TIME: 1605 Specimen Inquiry RUN USER: INTERFACE S [facility] #: [id number]:[facility]:[id number] PATIENT: JULISSA CARR #[id number] (Continued) MICROSCOPIC DESCRIPTION Microscopic examination is performed on all specimens and the findings areincorporated into the final diagnosis. Please see diagnosis for findings. CLINICAL INFORMATION Chronic tonsillitis Signed SIGNATURE ON FILE Alfred Fernandez 10/14/22 6445 END OF REPORT CBC W/AUTO [id number] 18:18:00 Test Item Value Reference Range Interpretation [...] NO DIFF/SCN CRITERIA = MDIFF) HCG SERUM [id number] 18:10:00 Test Item Value Reference Range Interpretation Comments HCG SERUM QUAL (test SERUM NEGATIVE SCREEN NEGATIVE code = HCGQL) COVID 19 INHOUSE [id number] 18:10:00 Test Item Value Reference Range Interpretation Comments COVID 19 INHOUSE AG NEGATIVE Negative Per manu facturer, (test code = negative result s should [id number]) be treated aspr esumptive and, if inconsi [...] with COVID-19. HIV 1/2 4TH GEN, RFLX [id number] 00:00:00 Test Item Value Reference Range Interpretation Comments HIV 1/2 4TH GEN, RFLX CONF (test NON-REACTIVE code = 3514) HIV 1/2 4TH GEN, RFLX [id number] 00:00:00 Test Item Value Reference Range Interpretation Comments HIV 1/2 4TH GEN, RFLX CONF (test NON-REACTIVE code = 3514) ACUTE HEPATITIS [id number] 00:00:00 Test Item Value Reference Range Interpretation Comments HEPATITIS A IgM (test code = NON-REACTIVE 41663) HEPATITIS B CORE IgM (test code NON-REACTIVE = 4644) HEPATITIS B SURF AG (test code = NON-REACTIVE 2739) HEPATITIS C ANTIBODY (test code NON-REACTIVE = 4675) INTERPRETATION HEPATITIS A: (NOTE) (test code = 2552) INTERPRETATION HEPATITIS B: (NOTE) (test code = 18818) INTERPRETATION HEPATITIS C: (NOTE) (test code = 48496) ACUTE HEPATITIS [id number] 00:00:00 Test Item Value Reference Range Interpretation Comments HEPATITIS A IgM (test code = NON-REACTIVE 99780) HEPATITIS B CORE IgM (test code NON-REACTIVE = 4644) HEPATITIS B SURF AG (test code = NON-REACTIVE 2739) HEPATITIS C ANTIBODY (test code NON-REACTIVE = 4675) INTERPRETATION HEPATITIS A: (NOTE) (test code = 2552) INTERPRETATION HEPATITIS B: (NOTE) (test code = 79649) INTERPRETATION HEPATITIS C: (NOTE) (test code = 30214) [id number] 00:00:00 Test Item Value Reference Range Interpretation Comments RPR RESULT (test code = NON-REACTIVE 3501) RPR TITER (test code = 3500) NOT INDIC. TITER [id number] 00:00:00 Test Item Value Reference Range Interpretation Comments RPR RESULT (test code = NON-REACTIVE 3501) RPR TITER (test code = 3500) NOT INDIC. TITER [id number] 00:00:00 Test Item Value Reference Range Interpretation Comments RPR RESULT (test code = NON-REACTIVE 3501) RPR TITER (test code = 3500) NOT INDIC. TITER SARS-CoV-2 (COVID-19) by RT-PCR (HIGH RISK)2021-02-12 00:00:00 Test Item Value Reference Range Interpretation Comments SARS-CoV-2 INTERPRETATION (test NEGATIVE code = 85871) SOURCE (test code = 35180) NOT SPECIFIED SARS-CoV-2 (COVID-19) by RT-PCR (HIGH RISK)2021-02-12 00:00:00 Test Item Value Reference Range Interpretation Comments SARS-CoV-2 INTERPRETATION (test NEGATIVE code = 26335) SOURCE (test code = 96519) NOT SPECIFIED VAGINAL PATHOGENS DNA [id number] 00:00:00 Test Item Value Reference Range Interpretation Comments KATE SPECIES (test code = 58127) NEGATIVE G. VAGINALIS (test code = 37432) NEGATIVE T. VAGINALIS (test code = 54329) NEGATIVE VAGINAL PATHOGENS DNA [id number] 00:00:00 Test Item Value Reference Range Interpretation Comments KATE SPECIES (test code = 97627) NEGATIVE G. VAGINALIS (test code = 41997) NEGATIVE T. VAGINALIS (test code = 44199) NEGATIVE SURGICAL PATHOLOGY [id number] 00:00:00 Test Item Value Reference Range Interpretation Comments DIAGNOSIS: (test code = 8200) (NOTE) COMMENTS: (test code = 8205) (NOTE) MICROSCOPIC DESCRIPTION: (test code = (NOTE) 8210) CLINICAL DATA: (test code = 8401) (NOTE) GROSS DESCRIPTION: (test code = 8220) (NOTE) PATHOLOGIST: (test code = 8250) (NOTE) CPT: (test code = 8400) (NOTE) SURGICAL PATHOLOGY [id number] 00:00:00 Test Item Value Reference Range Interpretation Comments DIAGNOSIS: (test code = 8200) (NOTE) COMMENTS: (test code = 8205) (NOTE) MICROSCOPIC DESCRIPTION: (test code = (NOTE) 8210) CLINICAL DATA: (test code = 8401) (NOTE) GROSS DESCRIPTION: (test code = 8220) (NOTE) PATHOLOGIST: (test code = 8250) (NOTE) CPT: (test code = 8400) (NOTE) VAGINAL PATHOGENS DNA [id number] 00:00:00 Test Item Value Reference Range Interpretation Comments KATE SPECIES (test code = 08590) NEGATIVE G. VAGINALIS (test code = 91165) NEGATIVE T. VAGINALIS (test code = 31201) NEGATIVE VAGINAL PATHOGENS DNA [id number] 00:00:00 Test Item Value Reference Range Interpretation Comments KATE SPECIES (test code = 61211) NEGATIVE G. VAGINALIS (test code = 18010) NEGATIVE T. VAGINALIS (test code = 00580) NEGATIVE HIV AB/AG COMBO RFLX [id number] 00:00:00 Test Item Value Reference Range Interpretation Comments HIV 1/2 4TH GEN, RFLX CONF (test NON-REACTIVE code = 3514) PAP TEST, THINPREP, [id number] 00:00:00 Test Item Value Reference Range Interpretation Comments SOURCE: (test code = Endocervical 8001) SLIDES: (test code = 1 8011) LMP: (test code = 8021) 11/18/2020 SPECIMEN ADEQUACY: (test (NOTE) code = 56798) INTERPRETATION: (test LSIL/EPITH. code = 47370) ABNORMALITY; SEE BELOW BRIDGE RIGGER: (test [place] code = 8101) SEBASTIAN Palomares(ASCP)[facility] PATHOLOGIST Otilio Solitario M.D. INTERPRETATION BY: (test code = 8122) LOCATION: (test code = (NOTE) 78013) CPT: (test code = 8140) (NOTE) PAP TEST, THINPREP, [id number] 00:00:00 Test Item Value Reference Range Interpretation Comments SOURCE: (test code = Endocervical 8001) SLIDES: (test code = 1 8011) LMP: (test code = 8021) 11/18/2020 SPECIMEN ADEQUACY: (test (NOTE) code = 78976) INTERPRETATION: (test LSIL/EPITH. code = 63228) ABNORMALITY; SEE BELOW BRIDGE RIGGER: (test [place] code = 8101) SEBASTIAN Palomares(ASCP)[facility] PATHOLOGIST Otilio Solitario M.D. INTERPRETATION BY: (test code = 8122) LOCATION: (test code = (NOTE) 96966) CPT: (test code = 8140) (NOTE) HIV AB/AG COMBO RFLX [id number] 00:00:00 Test Item Value Reference Range Interpretation Comments HIV 1/2 4TH GEN, RFLX CONF (test NON-REACTIVE code = 3514) HPV HIGH RISK WITH GENOTYPE, [id number] 00:00:00 Test Item Value Reference Range Interpretation Comments HPV HIGH RISK INTERP (test code = POSITIVE 15420) HPV 16 (test code = 02738) NEGATIVE HPV 18 (test code = 79639) NEGATIVE HPV, HR, OTHER GENOTYPES (test code POSITIVE = 58587) [id number] 00:00:00 Test Item Value Reference Range Interpretation Comments RPR RESULT (test code = NON-REACTIVE 3501) RPR TITER (test code = 3500) NOT INDIC. TITER [id number] 00:00:00 Test Item Value Reference Range Interpretation Comments RPR RESULT (test code = NON-REACTIVE 3501) RPR TITER (test code = 3500) NOT INDIC. TITER [id number] 00:00:00 Test Item Value Reference Range Interpretation Comments RPR RESULT (test code = NON-REACTIVE 3501) RPR TITER (test code = 3500) NOT INDIC. TITER CBC W/AUTO [id number] 00:00:00 Test Item Value Reference Range Interpretation [...] NUCLEATED RBCS (test code = 0.00 K/UL 24796) CBC W/AUTO [id number] 00:00:00 Test Item Value Reference Range Interpretation [...] NUCLEATED RBCS (test code = 0.00 K/UL 27311) GC AND CHLAMYDIA AMPLIFIED, [id number] 00:00:00 Test Item Value Reference Range Interpretation Comments GONORRHEA, TMA (test code = 98488) NEGATIVE CHLAMYDIA, TMA (test code = 86781) NEGATIVE GC AND CHLAMYDIA AMPLIFIED, [id number] 00:00:00 Test Item Value Reference Range Interpretation Comments GONORRHEA, TMA (test code = 07746) NEGATIVE CHLAMYDIA, TMA (test code = 88799) NEGATIVE CBC W/AUTO [id number] 00:00:00 Test Item Value Reference Range Interpretation [...] NUCLEATED RBCS (test code = 0.00 K/UL 98888) VAGINAL PATHOGENS DNA [id number] 00:00:00 Test Item Value Reference Range Interpretation Comments KATE SPECIES (test code = ) NEGATIVE G. VAGINALIS (test code = ) POSITIVE T. VAGINALIS (test code = ) NEGATIVE VAGINAL PATHOGENS DNA [id number] 00:00:00 Test Item Value Reference Range Interpretation Comments KATE SPECIES (test code = ) NEGATIVE G. VAGINALIS (test code = 80269) POSITIVE T. VAGINALIS (test code = 69669) NEGATIVE HPV HIGH RISK WITH GENOTYPE, [id number] 00:00:00 Test Item Value Reference Range Interpretation Comments HPV HIGH RISK INTERP (test code = POSITIVE 69298) HPV 16 (test code = 28946) NEGATIVE HPV 18 (test code = 62395) NEGATIVE HPV, HR, OTHER GENOTYPES (test code POSITIVE = 15140) SARS-CoV-2 (COVID-19) by RT-PCR (HIGH RISK)2020-09-04 00:00:00 Test Item Value Reference Range Interpretation Comments SARS-CoV-2 INTERPRETATION (test NEGATIVE code = 66506) SOURCE (test code = 48764) NOT SPECIFIED SARS-CoV-2 (COVID-19) by RT-PCR (HIGH RISK)2020-09-04 00:00:00 Test Item Value Reference Range Interpretation Comments SARS-CoV-2 INTERPRETATION (test NEGATIVE code = 62664) SOURCE (test code = 87664) NOT SPECIFIED BASIC METABOLIC [id number] 18:41:00 Test Item Value Reference Range Interpretation [...] Unit/L 26-192 N CK) Completed by Nursing: [id number] 18:41:00 Test Item Value Reference Range Interpretation [...] Completed by Nursing: NO- XR CHEST 1 [id number] 18:36:00 [facility] : 1990 Sex: F Name: JULISSA CARR [facility] : 1990 Age/S: 30 / F [id number] Unit #: [id number] Loc: [place] [address] Phys: Candy Castro MD Acct: [id number] Dis Date: Status: REG ER PHONE #: [phone] Exam Date: 06/17/20201826 FAX #: Reason: chest pain EXAMS: CPT: [id number] XR CHEST 1 V 32599 Fluoro Time: DAP (Gy m2): Air Kerma (mGy): EXAM: CHEST ONE VIEW INDICATION: CHEST PAIN LOCATION: B2 COMPARISON: None available TECHNIQUE: AP view of the chest FINDINGS: The heart size is normal. The lungs are clear bilaterally. The pulmonary vasculature is normal. No pneumothorax or pleural effusion is identified. The osseous structures are normal. IMPRESSION: No acute cardiopulmonary process. at 1836 Reported and signed by: Soniya Armstrong M.D. CC: Candy Castro MD; Natalia TRUJILLO PAGE 1 Signed Report Name: JULISSA CARR [facility] : 1990 Age/S: 30 / F [place] Unit #: [id number] Loc: [place] [address] Phys: Candy Castro MD Acct: [id number] Dis Date: Status: REG ER PHONE #: [phone] Exam Date: 06/17/20201826 FAX #: Reason: chest painEXAMS: CPT: [id number] XR CHEST 1 V 28284 Fluoro Time: DAP (Gy m2): Air Kerma (mGy): (Continued) Technologist: Sparkle Breaux RT(R)(CT) Trnscb Date/Time: 06/17/2020 (1835) [email or web address] Orig Print D/T: S: 06/17/2020 (1838) PAGE 2 Signed ReportCBC W/O [id number] 18:23:00 Test Item Value Reference Range Interpretation [...] Comments SARS-CoV-2 INTERPRETATION (test NEGATIVE code = 34825) SOURCE (test code = 43662) NOT SPECIFIED SARS-CoV-2 (COVID-19) by RT-PCR (HIGH RISK)2020-06-08 00:00:00 Test Item Value Reference Range Interpretation Comments SARS-CoV-2 INTERPRETATION (test NEGATIVE code = 72049) SOURCE (test code = 86484) NOT SPECIFIED SARS-CoV-2 (COVID-19) by RT-PCR (HIGH RISK)2020-03-29 00:00:00 Test Item Value Reference Range Interpretation Comments SARS-CoV-2 INTERPRETATION Negative (test code = 51226) SOURCE (test code = 74676) Nasal_Swab_in_VTM__ UTM PAP TEST, THINPREP, [id number] 00:00:00 Test Item Value Reference Range Interpretation Comments SOURCE: (test code = 8001) Cervical/Endocervic al SLIDES: (test code = 8011) 1 LMP: (test code = 8021) 01/26/2020 SPECIMEN ADEQUACY: (test (NOTE) code = 44009) INTERPRETATION: (test code ASCUS/EPITH. = 53069) ABNORMALITY; SEE BELOW BRIDGE RIGGER: (test [place] code = 8101) SEBASTIAN Palomares(ASCP)IAC QC TECHNOLOGIST: (test Nabila [facility] [place] code = 8111) PATHOLOGIST INTERPRETATION [place] BY: (test code = 8122) LOCATION: (test code = (NOTE) 44294) CPT: (test code = 8140) (NOTE) PAP TEST, THINPREP, [id number] 00:00:00 Test Item Value Reference Range Interpretation Comments SOURCE: (test code = 8001) Cervical/Endocervic al SLIDES: (test code = 8011) 1 LMP: (test code = 8021) 01/26/2020 SPECIMEN ADEQUACY: (test (NOTE) code = 11902) INTERPRETATION: (test code ASCUS/EPITH. = 61943) ABNORMALITY; SEE BELOW BRIDGE RIGGER: (test [place] code = 8101) SEBASTIAN Palomares(ASCP)IAC QC TECHNOLOGIST: (test Nabila Epps code = 8111) PATHOLOGIST INTERPRETATION [place] BY: (test code = 8122) LOCATION: (test code = (NOTE) 05724) CPT: (test code = 8140) (NOTE) HPV HIGH RISK WITH GENOTYPE, [id number] 00:00:00 Test Item Value Reference Range Interpretation Comments HPV HIGH RISK INTERP (test POSITIVE code = 69731) HPV 16 (test code = 54755) NEGATIVE HPV 18 (test code = 34786) NEGATIVE HPV, HR, OTHER GENOTYPES TEST NOT PERFORMED (test code = 28717) HPV HIGH RISK WITH GENOTYPE, [id number] 00:00:00 Test Item Value Reference Range Interpretation Comments HPV HIGH RISK INTERP (test POSITIVE code = 24110) HPV 16 (test code = 60119) NEGATIVE HPV 18 (test code = 75589) NEGATIVE HPV, HR, OTHER GENOTYPES TEST NOT PERFORMED (test code = 77504) COMPREHENSIVE METABOLIC [id number] 00:00:00 Test Item Value Reference Range Interpretation Comments GLUCOSE (test code = 2217) 128 MG/DL BUN (test code = 2208) 10 MG/DL CREATININE (test code = 2214) 0.80 MG/DL eGFR AMER. (test code 113 ML/MIN/1.73 = 79339) eGFR NON- AMER. (test 98 ML/MIN/1.73 code = 74163) CALC BUN/CREAT (test code = 13 RATIO [...] ALT (test code = 2219) 13 U/L [id number] 00:00:00 Test Item Value Reference Range Interpretation Comments TSH, THIRD GENERATION (test code 1.510 UIU/ML = 2821) [id number] 00:00:00 Test Item Value Reference Range Interpretation Comments TSH, THIRD GENERATION (test code 1.510 UIU/ML = 2821) [id number] 00:00:00 Test Item Value Reference Range Interpretation Comments TSH, THIRD GENERATION (test code 1.510 UIU/ML = 2821) HEMOGLOBIN [id number] 00:00:00 Test Item Value Reference Range Interpretation Comments HEMOGLOBIN A1c (test code = 60832) 5.7 % HEMOGLOBIN [id number] 00:00:00 Test Item Value Reference Range Interpretation Comments HEMOGLOBIN A1c (test code = 99327) 5.7 % HEMOGLOBIN [id number] 00:00:00 Test Item Value Reference Range Interpretation Comments HEMOGLOBIN A1c (test code = 90918) 5.7 % LIPID [id number] 00:00:00 Test Item Value Reference Range Interpretation Comments CHOLESTEROL (test code = 2210) 163 MG/DL TRIGLYCERIDES (test code = 2232) 204 MG/DL HDL CHOLESTEROL (test code = 2220) 48 MG/DL CALC LDL CHOL (test code = 2237) 85 MG/DL RISK RATIO LDL/HDL (test code = 1.77 RATIO 2238) LIPID [id number] 00:00:00 Test Item Value Reference Range Interpretation Comments CHOLESTEROL (test code = 2210) 163 MG/DL TRIGLYCERIDES (test code = 2232) 204 MG/DL HDL CHOLESTEROL (test code = 2220) 48 MG/DL CALC LDL CHOL (test code = 2237) 85 MG/DL RISK RATIO LDL/HDL (test code = 1.77 RATIO 2238) COMPREHENSIVE METABOLIC [id number] 00:00:00 Test Item Value Reference Range Interpretation Comments GLUCOSE (test code = 2217) 128 MG/DL BUN (test code = 2208) 10 MG/DL CREATININE (test code = 2214) 0.80 MG/DL eGFR AMER. (test code 113 ML/MIN/1.73 = 81579) eGFR NON- AMER. (test 98 ML/MIN/1.73 code = 44900) CALC BUN/CREAT (test code = 13 RATIO [...] Comments SARS-CoV-2 INTERPRETATION (test NEGATIVE code = 04553) SOURCE (test code = 65555) NOT SPECIFIED SARS-CoV-2 (COVID-19) by RT-PCR (HIGH RISK)2020-01-05 00:00:00 Test Item Value Reference Range Interpretation Comments SARS-CoV-2 INTERPRETATION (test NEGATIVE code = 37199) SOURCE (test code = 51211) NOT SPECIFIED SARS-CoV-2 (COVID-19) by RT-PCR (HIGH RISK)2020-01-04 00:00:00 Test Item Value Reference Range Interpretation Comments SARS-CoV-2 INTERPRETATION (test NEGATIVE code = 02940) SOURCE (test code = 82759) NOT SPECIFIED SARS-CoV-2 (COVID-19) by RT-PCR (HIGH RISK)2020-01-04 00:00:00 Test Item Value Reference Range Interpretation Comments SARS-CoV-2 INTERPRETATION (test NEGATIVE code = 20530) SOURCE (test code = 30346) NOT SPECIFIED SARS-CoV-2 (COVID-19) by RT-PCR (HIGH RISK)2019-12-26 00:00:00 Test Item Value Reference Range Interpretation Comments SARS-CoV-2 INTERPRETATION (test POSITIVE code = 41062) SOURCE (test code = 35076) NOT SPECIFIED SARS-CoV-2 (COVID-19) by RT-PCR (HIGH RISK)2019-12-26 00:00:00 Test Item Value Reference Range Interpretation Comments SARS-CoV-2 INTERPRETATION (test POSITIVE code = 44168) SOURCE (test code = 36046) NOT SPECIFIED CULTURE, [id number] 00:00:00 Test Item Value Reference Range Interpretation Comments CULTURE, URINE (test SPECIMEN NUMBER: code = 02888) [id number] CULTURE, [id number] 00:00:00 Test Item Value Reference Range Interpretation Comments CULTURE, URINE (test SPECIMEN NUMBER: code = 73635) [id number] TRICHOMONAS, URINE, [id number] 00:00:00 Test Item Value Reference Range Interpretation Comments TRICHOMONAS, URINE, AMP (test code = NEGATIVE 26661) TRICHOMONAS, URINE, [id number] 00:00:00 Test Item Value Reference Range Interpretation Comments TRICHOMONAS, URINE, AMP (test code = NEGATIVE 36934) GC AND CHLAMYDIA BY [id number] 00:00:00 Test Item Value Reference Range Interpretation Comments CHLAMYDIA BY TMA (test code = 78059) NEGATIVE GONORRHEA BY TMA (test code = 69031) NEGATIVE GC AND CHLAMYDIA BY [id number] 00:00:00 Test Item Value Reference Range Interpretation Comments CHLAMYDIA BY TMA (test code = 71956) NEGATIVE GONORRHEA BY TMA (test code = 42031) NEGATIVE PAP TEST, THINPREP, [id number] 00:00:00 Test Item Value Reference Range Interpretation Comments SOURCE: (test code = Cervical/Endocervical 8001) SLIDES: (test code = 2 8011) LMP: (test code = 01/12/18 8021) SPECIMEN ADEQUACY: (NOTE) (test code = 65106) INTERPRETATION: (test NO EPITHELIAL code = 86417) ABNORMALITY SEE BELOW OTHER COMMENTS: (test (NOTE) code = 8081) BRIDGE RIGGER: SEBASTIAN SANDS(ASCP) (test code = 8101) QC TECHNOLOGIST: SEBASTIAN BENTLEY(ASCP) (test code = 8111) LOCATION: (test code (NOTE) = 46869) CPT: (test code = (NOTE) 8140) PAP TEST, THINPREP, [id number] 00:00:00 Test Item Value Reference Range Interpretation Comments SOURCE: (test code = Cervical/Endocervical 8001) SLIDES: (test code = 2 8011) LMP: (test code = 01/12/18 8021) SPECIMEN ADEQUACY: (NOTE) (test code = 39027) INTERPRETATION: (test NO EPITHELIAL code = 18424) ABNORMALITY SEE BELOW OTHER COMMENTS: (test (NOTE) code = 8081) BRIDGE RIGGER: SEBASTIAN SANDS(ASCP) (test code = 8101) QC TECHNOLOGIST: SEBASTIAN BENTLEY(ASCP) (test code = 8111) LOCATION: (test code (NOTE) = 96658) CPT: (test code = (NOTE) 8140) HPV HIGH RISK WITH GENOTYPE, [id number] 00:00:00 Test Item Value Reference Range Interpretation Comments HPV HIGH RISK INTERP (test code = NEGATIVE 31023) HPV 16 (test code = 91329) NEGATIVE HPV 18 (test code = 86399) NEGATIVE HPV, HR, OTHER GENOTYPES (test code NEGATIVE = 46441) HIV AB/AG COMBO RFLX [id number] 00:00:00 Test Item Value Reference Range Interpretation Comments HIV 1/2 4TH GEN, RFLX CONF (test NON-REACTIVE code = 3514) TRICHOMONAS, THINPREP, AMP [ADDED]2018-02-02 00:00:00 Test Item Value Reference Range Interpretation Comments TRICHOMONAS, THINPREP, AMP (test Negative code = 26778) [id number] 00:00:00 Test Item Value Reference Range Interpretation Comments RPR RESULT (test code = NON-REACTIVE 3501) RPR TITER (test code = 3500) NOT INDIC. TITER [id number] 00:00:00 Test Item Value Reference Range Interpretation Comments RPR RESULT (test code = NON-REACTIVE 3501) RPR TITER (test code = 3500) NOT INDIC. TITER TRICHOMONAS, THINPREP, AMP [ADDED]2018-02-02 00:00:00 Test Item Value Reference Range Interpretation Comments TRICHOMONAS, THINPREP, AMP (test Negative code = 40603) [id number] 00:00:00 Test Item Value Reference Range Interpretation Comments RPR RESULT (test code = NON-REACTIVE 3501) RPR TITER (test code = 3500) NOT INDIC. TITER LIPID [id number] 00:00:00 Test Item Value Reference Range Interpretation Comments CHOLESTEROL (test code = 2210) 180 MG/DL TRIGLYCERIDES (test code = 2232) 135 MG/DL HDL CHOLESTEROL (test code = 2220) 58 MG/DL CALC LDL CHOL (test code = 2237) 95 MG/DL RISK RATIO LDL/HDL (test code = 1.64 RATIO 2238) LIPID [id number] 00:00:00 Test Item Value Reference Range Interpretation Comments CHOLESTEROL (test code = 2210) 180 MG/DL TRIGLYCERIDES (test code = 2232) 135 MG/DL HDL CHOLESTEROL (test code = 2220) 58 MG/DL CALC LDL CHOL (test code = 2237) 95 MG/DL RISK RATIO LDL/HDL (test code = 1.64 RATIO 2238) COMPREHENSIVE METABOLIC [id number] 00:00:00 Test Item Value Reference Range Interpretation Comments GLUCOSE (test code = 2217) 92 MG/DL BUN (test code = 2208) 7 MG/DL CREATININE (test code = 2214) 0.75 MG/DL eGFR AMER. (test code 124 ML/MIN/1.73 = 53031) eGFR NON- AMER. (test 107 ML/MIN/1.73 code = 90494) CALC BUN/CREAT (test code = 9 RATIO [...] code = 2219) 11 U/L COMPREHENSIVE METABOLIC [id number] 00:00:00 Test Item Value Reference Range Interpretation Comments GLUCOSE (test code = 2217) 92 MG/DL BUN (test code = 2208) 7 MG/DL CREATININE (test code = 2214) 0.75 MG/DL eGFR AMER. (test code 124 ML/MIN/1.73 = 35042) eGFR NON- AMER. (test 107 ML/MIN/1.73 code = 89100) CALC BUN/CREAT (test code = 9 RATIO [...] BILIRUBIN, TOTAL (test code = 0.6 MG/DL 2207) ALKALINE PHOSPHATASE (test 70 U/L code = 2204) AST (test code = 2218) 21 U/L ALT (test code = 2219) 11 U/L ACUTE HEPATITIS [id number] 00:00:00 Test Item Value Reference Range Interpretation Comments HEPATITIS A IgM (test code = NON-REACTIVE 01663) HEPATITIS B CORE IgM (test code NON-REACTIVE = 4644) HEPATITIS B SURF AG (test code = NON-REACTIVE 2739) HEPATITIS C ANTIBODY (test code NON-REACTIVE = 4675) INTERPRETATION HEPATITIS A: (NOTE) (test code = 2552) INTERPRETATION HEPATITIS B: (NOTE) (test code = 01832) INTERPRETATION HEPATITIS C: (NOTE) (test code = 36608) GC AND CHLAMYDIA AMPLIFIED, [id number] 00:00:00 Test Item Value Reference Range Interpretation Comments GONORRHEA, TMA (test code = 66412) NEGATIVE CHLAMYDIA, TMA (test code = 04261) NEGATIVE ACUTE HEPATITIS [id number] 00:00:00 Test Item Value Reference Range Interpretation Comments HEPATITIS A IgM (test code = NON-REACTIVE 77721) HEPATITIS B CORE IgM (test code NON-REACTIVE = 4644) HEPATITIS B SURF AG (test code = NON-REACTIVE 2739) HEPATITIS C ANTIBODY (test code NON-REACTIVE = 4675) INTERPRETATION HEPATITIS A: (NOTE) (test code = 2552) INTERPRETATION HEPATITIS B: (NOTE) (test code = 42045) INTERPRETATION HEPATITIS C: (NOTE) (test code = 60184) GC AND CHLAMYDIA AMPLIFIED, [id number] 00:00:00 Test Item Value Reference Range Interpretation Comments GONORRHEA, TMA (test code = 43932) NEGATIVE CHLAMYDIA, TMA (test code = 86739) NEGATIVE HEMOGLOBIN [id number] 00:00:00 Test Item Value Reference Range Interpretation Comments HEMOGLOBIN A1c (test code = 38108) 5.4 % HEMOGLOBIN [id number] 00:00:00 Test Item Value Reference Range Interpretation Comments HEMOGLOBIN A1c (test code = 93215) 5.4 % HEMOGLOBIN [id number] 00:00:00 Test Item Value Reference Range Interpretation Comments HEMOGLOBIN A1c (test code = 26875) 5.4 % HIV AB/AG COMBO RFLX [id number] 00:00:00 Test Item Value Reference Range Interpretation Comments HIV 1/2 4TH GEN, RFLX CONF (test NON-REACTIVE code = 3514) HPV HIGH RISK WITH GENOTYPE, [id number] 00:00:00 Test Item Value Reference Range Interpretation Comments HPV HIGH RISK INTERP (test code = NEGATIVE 50057) HPV 16 (test code = 99920) NEGATIVE HPV 18 (test code = 96435) NEGATIVE HPV, HR, OTHER GENOTYPES (test code NEGATIVE = 16044) Notes Date/Time Note Provider Source 2022-10-11 19:17:00 [id number] [facility] [address] [place] [id number] PATIENT NAME: JULISSA CARR ADMIT DATE: 10/11/22ACCOUNT NO: [id number] ROOM NO: MEDICA RECORD NO: [id number] AGE: 32 REPORT TYPE: OPERATIVE REPORT SEX: F ADMITTING PHYSICIAN: ATTENDING PHYSICIAN: Susy Abbasi DO OPERATION DATE : 10/11/2022 PREOPERATIVE DIAGNOSIS: Chronic tonsillitis. POSTOPERATIVE DIAGNOSIS: Chronic tonsillitis. PROCEDURE: Tonsillectomy. SURGEON: Susy Abbasi DO MARKET INTELLIGENCE CONSULTANT: ANESTHESIA: General endotracheal anesthesia was administered. I alsoinfiltrated approximately 10 mL of 0.25% Marcaine with 1:100,000 epinephrine into the bilateral tonsillar fossae. ESTIMATED BLOOD LOSS : Scant less than 2 mL SPECIMENS: Bilateral tonsil s submitted to pathology for evaluation. FINDINGS: Bilateral hypertrophic tonsils 2+/4. No evidence of adenoid tissue. COMPLICATIONS: None. DISPOSITION: Stable. The patient tolerated the procedure well. INDICATIONS: The patient is a pleasant 32-year-old female who has had multipletonsillar infections, resulting in chronic throat pain for years. She has beenon multiple antibiotics and her condition has been refractory to outpatienttherapy. These were indications to bring the patient to the operativ e suite forthe above-mentioned procedure. She understood. All questions were answered.Risks versus benefits and complications were explained in detail and a consentform was signed, which is placed on the chart. DESCRIPTION OF PROCEDURE: The patient was transferred from the preoperativeholding area to the operative suite by Department of Anesthesia, placed on theoperating table in supine, sedated and intubated in normal fashion. Table wasrotated 90 degrees and a shoulder roll was not placed, but I placed her intoTrendelenburg in order to access the oropharynx. McIvor retractor wasintroduced into the right oral commissure along the endotracheal tube and suspended from the Escamilla stand. PATIENT NAME: JULISSA CARR Tonsils were removed by retracting the superior poles midline with three Allisclamps. I then dissected through the peritonsillar mucosa with needlepointelectrocautery on a setting of 20 for coagulation. I then dissected down to thefascial plane and then once the planes were visualized, I dissected within theplane until the inferior poles were reached, whereby I amputated the inferiorpoles with suction Bovie. Hemostasis was achieved with suction Bovie. Salineirrigation wa s introduced into the oral cavity and removed with suction Bovie. I utilized a Vani retractor to elevate the soft palate anteriorly and then Ivisualized the adenoid cavity with a laryngeal mirror. There is no evidence ofadenoid tissue. I infiltrated approximately 10 mL of 0.25% Marcain e with1:100,000 epinephrine into bilateral tonsillar fossae. I then inserted aflexible orogastric tube into the esophagus and stomach and all fluid contentswere removed. Next, the patient was then suspended from the Escamilla stand. McIvor retractor wasremoved and the patient's chart was checked and found to be in proper alignment. Head turban was removed and the patient was transferred back to the department o f anesthesia in stable condition where she was subsequently extubated and transferred to the postoperative care unit in stable condition. She will be discharged home on an analgesic medication. We will follow up in 1-2 weeks or sooner if needed. Dictated By: Susy bAbasi DO Yoel e Dictated: 10/11/2022 19:17:58Date Transcribed: 10/11/2022 20:14:16CORA/EDUARDO/Solitario #: [id number] ID: [id number] CC:Janene Sainz MD [place], TXAuthenticated and Edited by Susy Abbasi DO On 11/06/22 11:07:08 AM at 1109 PATIENT NAME: JULISSA ACRR [id number]:14:00L.[id number] i lable for patient [id number]:10:00 2022-10-07 16:16:00 [id number] [facility] [address] [place] [address] PATIENT NAME: JULISSA CARR ADMIT DATE: 10/11/22ACCOUNT NO: [id number] ROOM NO: MEDICA L RECORD NO: [id number] AGE: 32 REPORT TYPE: eELECTROCARDIOGRAM SEX: F ADMITTING PHYSICIAN: ATTENDING PHYSICIAN: Susy Abbasi DO Order:[id number] Reason : PRE-OP Test Date/Time Stamp:TueOct 07 2022 16:16:20Blood Pressure : / mmHGVent. Rate : 078 BPM Atrial Rate : 078 BPM P-R Int : 150 ms QRS Dur : 088 ms QT Int : 394 ms P-R-T Axes : 014 005 -02 degrees QTc Int : 449 ms Normal sinus rhythmMinimal voltage criteria for LVH, may be normal variantPossible Anterior infarct (cited o n or before 07-OCT-2022)Abnormal ECGWhen compared with ECG of 17-JUN-2020 18:07,No significant change was foundConfirmed by MD Umesh, Amir ([id number]) on 10/27/2022 5:12:03 PM Referred By : Susy Abbasi Confirmed by:Yolande Calvo MD at 1712 PATIENT NAME: RADHA CARR .[id number] AVAvailable for patient [id number]:12:23 2020-06-17 19:11:00 [id number]:11:00 [facility] ([facility])EMERGENCY PROVIDER REPORTREPORT#:[id number] REPORT STATUS: SignedDATE:06/17/20 TIME:1910 PATIENT: JULISSA CARR UNIT #: [id number]#: [id number] ROOM/BED:: 88 AGE: 30 SEX: F PCP PHYS: No Primary or Family PhysicianSERVICE AUTHOR: Natalia Sesay * ALL edits or amendments must be made on the electronic/computer document * HPI-Chest Pain Under 40 GeneralConfirmed Patient YesPatient Type New patientInitial Greet Date/Time 06/17/201807 PresentationChief Complaint Chest painHx Obtained From PatientSudden in Onset? NoOnset Occurred TodaySymptom Duration Since onset)( Migration/Movement NoneSeverity: Onset ModerateSeverity: Current Moderate ContextImmunization Status General All up to yoel e Free Text HPI NotesFree Text HPI [id number] d female with past medical history of hypertension presents to the EC from substernal chest pain x3 days. Patient states she recently had a medication change her amlodipine from 5 mg to 10 mg a day before chest pain began. States she thinks this may be a natural reaction but cannot be sure. Has not tried any medications for pain. States pain is only 4 out of 10 in nature and does not radiate. Denies any shortness of breath dizziness blurry vision. Denies any other symptoms or complaints. Risk-Chest Pain Under 40 Risk Stratification)( Coronary Artery Disease Risk factors reviewed, HypertensionThoracic Aortic Dissection Risk factors reviewed, No risk factors)( Pulmonary Embolism Risk factors N/A)( AMI-Aspirin Aspirin Last 24 Hrs On arrival)( HEART for MACE )( HEART for MACE Response Value History Low index of suspicion 0 ECG Interpretation Normal ECG 0 Age Age under 45 0 Risk Factors for CAD 1-2 CAD risk factors 1 Troponin < or = to NL troponin 0 Total 1 HEART Score for MACE 0-3 (low risk 0.9%-1.7%) HEART Score Reference Resource material only. Click 'Cancel' button and information will not be inserted into or become part of the medical record Risk factors considered for determining a patient's HEART Score include: hypercholesterolemia (hyperlipidemia), hypertension, diabetes mellitus, cigarette smoking, positive family history and obesity. Major Adverse Cardiac Events (MACE) include: acute myocardial infarction, ischaemic stroke, coronary arterial occlusion and . References:Jesus OVIEDO, Nawaf PETERS, et al. Chest pain in the emergency room: value of the HEART score. Net Heart J. 2008 Amor:16(6):191-6. PubMed PMID: [id number]; PubMed CentralPMCID: [id number]. Prashant PETERS, Jesus OVIEDO et al. A prospective validation of the HEART score for chest pain patients at the emergency department. Int J Cardiol. 2013 Mar 3:168(3):2153-8. Doi: 10.1016/j.ijcard.2013..255. Epub 2012Aug 24. PubMed PMID: [id number]. Review of Systems ROS StatementsAll systems rev neg except as marked.Complete sys rev neg except as marked. Basic Review of SystemsBasic ROS EYES: No redness, ENT: No sore throat, : No dysuria/frequency, HEM: No bleeding/bruising Focused Review of SystemsConstitutionalDenies: Chills, Fatigue, Fever, Lethargy, Malaise, Recen t wt loss, Weakness - generalized. RespiratoryDenies: Cough, non-productive, Cough, productive, Dyspnea on exertion, Hemoptysis, Parox nocturnal dyspnea, Pleuritic pain, Shortness of breath, Wheezing. CardiovascularReports: Chest pain. Denies: Dyspnea on exertion, Edema, Orthopnea, Palpitations, Parox nocturnal dyspnea, Syncope. GIDenies: Abdominal pain, Anorexia, Belching, Bloody/tarry stool, Constipation, Diarrhea, Dysphagia, Hematemesis, Hematochezia, Mucousy stool, Melena, Nausea, Rectal pain, Vomiting. MusculoskeletalDenies: Back pain, Extremity pain , Extremity swelling, Joint pain, Joint swelling, Lumbar pain, Myalgia, Neck pain, Thoracic pain. SkinDenies: Abrasion, Abscess, Burn, Contusion, Diaphoresis, Erythema, Itching, Jaundice, Laceration, Rash, Swelling, Ulceration. NeurologicDenies: Abnormal movement, Bladder dysfunction, Bowel dysfunction, Change LOC, Confusion, Dizziness, Focal weakness, Generalize d weakness, Headache, Lightheaded, Numbness, Problem walking, Seizure, Shaking, Slurred speech, Spinning sensation, Syncope, Tingling, Unable to speak, Vision change. PsychiatricDenies: Agitation, Anxiety, Change mental status, Confusion, Delusional, Depression , Hallucinations, auditory, Hallucinations, visual , Homicidal ideation, Hostile, Insomnia, Stress, Suicidal ideation, Unable to control self. Past Medical History - AdultStated Complaint CHEST PAINAllergiesCoded Allergies:Sulfa (Sulfonamide Antibiotics) (Severe, RASH, SWELLING FACE 04/30/14) Calculated suicide risk level: No riskReview of Nursing Notes Rev avail, and agreePt reports no significant: Family history, Social historySmoking status for patients 13 years old or older: Never Smoker Physical Exam Vital SignsVital SignsFirst Documented: Result Date Time Pulse Ox 98 06/17 181 B/P 150/90 06/17 181 B/P Mean 110 06/17 181 O2 Delivery Room air 06/17 1811 Temp 36.1 06/17 181 Pulse 9 2 06/17 181 Resp 17 06/17 181 Last Documented: Result Date Time Pulse Ox 99 06/17 1832 B/P 150/90 06/17 181 B/P Mean 110 06/17 181 O2 Delivery Room air 06/17 181 Temp 36.1 06/17 181 1 Pulse 92 06/17 181 Resp 17 06/17 181 Review of Vital Signs Reviewed, Vital signs normal Basic Physical ExamBasic PE HEAD: Atraumatic/NC, EYES: PERRL, conj clear, ENT: Membranes moist, NECK: Supple, ABD: Soft/non-tender, EXT: No gross abnormality, SKIN: No rashes, warm/dry, NEURO: alert oriented, NEURO: gross movement NL, PSYCH: NL thought content Focused PEGeneral/Const General/Const Awake, Alert, No acute distress, Well appearingEyes Eyes Atraumatic, PERRL, EOMI, No nystagmusMS Neck Neck Atraumatic, Supple, No meningismus, Full range of motionResp/Chest Respiratory/Chest Atraumatic, Breath sounds NL, Breath sounds = bilat, No respiratory distressCardiovascular Cardiovascular Heart rate NL, Regular rhythm, Heart sounds NL, No murmurs, Cap refill not delayed, Peripheral circulation NLAbdomen/GI Abdomen/GI Atraumatic, Soft, Non-tender, McBurney's non-tenderMS Back Back Atraumatic, Inspection NL, Full range of motion, Painless range of motionMS Lower Extrem Lower Ext/Pelvis/MS Atraumatic, Inspection NL, Full range of motion, No swellingSkin Skin Atraumatic, Color NL, No rash, WarmNeurologic Neurologic Oriented X3, Speech NL, No motor deficits, No sensory deficitsPsychiatric Psychiatric Affect NL, Mood NL, Judgment/insight NL, Thought content NL Interpretation Diagnostic s Lab Results InterpretationResultsLaboratory Test s 06/17/201817:[Embedded Image Not Available]Laboratory Tests: 06/17 1818 Chemistry Sodium (134 - 147 mmol/L) 137 Potassium (3.4 - 5.0 mmol/L) 3.6 Chloride (100 - 108 mmol/L) 104 Carbon Dioxide (21 - 32 mmol/L) 29 Anion Gap (4. 0 - 15.0 GAP calc) 4.0 BUN (7 - 18 MG/DL) 11 Creatinine (0.6 - 1.0 MG/DL) 0.9 Glomerular Filtr Rate (>60 estGFR) >=60 max estimate Glucos e (70 - 110 MG/DL) 119 H Calcium (8.5 - 10.1 MG/DL ) 8.9 Total Creatine Kinase (26 - 192 Unit/L) 136 Troponin I (0.000 - 0.045 NG/ML) < 0.015 Hematology WBC (3.5 - 11.0 K/mm3) 10.9 RBC (4.70 - 6.10 M/mm3) 4.73 Hgb (10.4 - 14.9 G/DL) 12.9 Hct (31.5 - 44.1 %) 37.6 MCV (84.5 - 98.6 Fl) 79.5 L MCH (27.0 - 34.2 pg) 27.3 MCHC (31.5 - 34.0 G/DL) 34.3 H RDW (11.5 - 14.5 SD) 13.1 Plt Count (150 - 450 K/mm3) 379 MPV (7.0 - 10.5 fL) 9.70 Recent Impressions:RADIOLOGY - XR CHEST 1 V 06/17 1824 Report Impression - Status: SIGNED Entered: 06/17/20201838 IMPRESSION:No acute cardiopulmonary process. Impression By: Mauri - Soniya Armstrong M.D. Point of Care TestingPulse Oximetry Pulse Ox % 98 On: Room air Interpretation Interpreted by me, Pulse oximetry normal Time 1910 Re-Evaluation MDM ED CourseMedication(s) OrderedMedication(s) Ordered:Central Nervous System Agents Sig/Whit Start time Last Medication Dose Route Stop Time Status Admin Aspirin 324 MG X1ED STA 06/17 1808 DC 06/17 PO 06/17 180 1821 Patient Discharge Departure Vital Signs/ConditionVital SignsFirst Documented: Result Date Time Pulse Ox 98 06/17 181 B/P 150/90 06/17 181 B/P Mean 110 06/17 1811 O2 Delivery Room air 06/17 181 Temp 36.1 06/17 181 Pulse 92 06/17 181 Resp 17 06/17 181 1 Last Documented: Result Date Time Pulse Ox 99 06/17 1832 B/P 150/90 06/17 181 B/P Mean 110 06/17 1811 O2 Delivery Room air 06/17 181 Temp 36.1 06/17 181 Pulse 92 06/17 181 Resp 17 06/17 181 All vital signs available at the time of this entry have been reviewed. Condition Stable, Improved Clinical ImpressionClinical ImpressionPrimary Impression: Chest painSecondar y Impressions: Medication intolerance Disposition DecisionDischarge )( Discharged to Home Yes )( Time 2021 )( Date 06/17/20 Discharge/Care Plan(Auto) PrescriptionsCurrent Visit ScriptsIBUPROFEN (MOTRIN) 600 MG PO QID PRN PRN PAIN IBUPROFEN (MOTRIN) 600 MG PO QID PRN PRN PAIN #30 TABS CYCLOBENZAPRINE (FLEXERIL) 10 MG P O Q8H PRN PRN MUSCLE SPASMS/PAIN CYCLOBENZAPRINE (FLEXERIL) 10 MG PO Q8H PRN PRN MUSCLE SPASMS/PAIN #15 TABS Prescriptions Reviewed Risks, Benefits, Alternative treatmentPatient Instructions ED Chest Pain, NoncardiacAdditional Instructionsreturn to work in 1 weekRefHattie Anderson DO Discharge NoteI have spoken with the patient and/or caregivers. I have explained the patient'scondition, diagnoses and treatment plan based on the information available to meat this time. I have answered the patient's and/or caregiver's questions and addressed any concerns . The patient and/or caregivers have as good an understanding of the patient's diagnosis, condition and treatment plan as can beexpected a t this point. The vital signs have been stable. Th e patient's condition is stable and appropriate fo r discharge from the emergency department. The patient will pursue further outpatient evaluatio n with the primary care physician or other designated or consulting physician as outlined i n the discharge instructions. The patient and/or caregivers are agreeable to this planof care and follow-up instructions have been explained in detail. The patient and/or caregivers have received these instructions in written format an d have expressed an understanding of the discharge instructions. The patient and/or caregivers are aware that any significant change in condition o r worsening of symptoms should prompt an immediate return to this or the closest emergency department or a call to 911. at 2045 RPT #: [id number] OF REPORTEDEmerhoward memorial hospital department [id number]:11:00L.[id number] a ilable for patient [id number]:46:04 2020-06-17 19:11:00 [id number]:11:00 [facility])EMERGENCY PROVIDER REPORTREPORT#:[id number] REPORT STATUS: SignedDATE:06/17/20 TIME:1910 PATIENT: JULISSA CARR UNIT #: [id number]#: [id number] ROOM/BED:: 88 AGE: 30 SEX: F PCP PHYS: No Primary or Family PhysicianSERVICE AUTHOR: Natalia Sesay * ALL edits or amendments must be made on the electronic/computer document * Natalia Sesay 06/17/201910:HPI-Chest Pain Unde r 40 GeneralConfirmed Patient YesPatient Type New patient PresentationChief Complaint Chest painHx Obtained From PatientSudden in Onset? NoOnset Occurred TodaySymptom Duration Since onset)( Migration/Movement NoneSeverity: Onset ModerateSeverity: Current Moderate ContextImmunization Status General All up to yoel e Free Text HPI NotesFree Text HPI [id number] d female with past medical history of hypertension presents to the [facility] from substernal chest pain x3 days. Patient states she recently had a medication change her amlodipine from 5 mg to 10 mg a day before chest pain began. States she thinks this may be a natural reaction but cannot be sure. Has not tried any medications for pain. States pain is only 4 out of 10 in nature and does not radiate. Denies any shortness of breath dizziness blurry vision. Denies any other symptoms or complaints. Risk-Chest Pain Under 40 Risk Stratification)( Coronary Artery Disease Risk factors reviewed, HypertensionThoracic Aortic Dissection Risk factors reviewed, No risk factors)( Pulmonary Embolism Risk factors N/A)( AMI-Aspirin Aspirin Last 24 Hrs On arrival)( HEART for MACE )( HEART for MACE Response Value History Low index of suspicion 0 ECG Interpretation Normal ECG 0 Age Age under 45 0 Risk Factors for CAD 1-2 CAD risk factors 1 Troponin < or = to NL troponin 0 Total 1 HEART Score for MACE 0-3 (low risk 0.9%-1.7%) HEART Score Reference Resource material only. Click 'Cancel' button and information will not be inserted into or become part of the medical record Risk factors considered for determining a patient's HEART Score include: hypercholesterolemia (hyperlipidemia), hypertension, diabetes mellitus, cigarette smoking, positive family history and obesity. Major Adverse Cardiac Events (MACE) include: acute myocardial infarction, ischaemic stroke, coronary arterial occlusion and . References:Jesus OVIEDO, Nawaf PETERS, et al. Chest pain in the emergency room: value of the HEART score. Net Heart J. 2008 Amor:16(6):191-6. PubMed PMID: 35219793; PubMed CentralPMCID: [id number]. Prashant PETERS, Jesus OVIEDO, et al. A prospective validation of the HEART score for chest pain patients at the emergency department. Int J Cardiol. 2013 Mar 3:168(3):2153-8. Doi: 10.1016/j.ijcard.2013..255. Epub 2012Aug 24. PubMed PMID: 00330723. Review of Systems ROS StatementsAll systems rev neg except as marked.Complete sys rev neg except as marked. Basic Review of SystemsBasic ROS EYES: No redness, ENT: No sore throat, : No dysuria/frequency, HEM: No bleeding/bruising Focused Review of SystemsConstitutionalDenies: Chills, Fatigue, Fever, Lethargy, Malaise, Recen t wt loss, Weakness - generalized. RespiratoryDenies: Cough, non-productive, Cough, productive, Dyspnea on exertion, Hemoptysis, Parox nocturnal dyspnea, Pleuritic pain, Shortness of breath, Wheezing. CardiovascularReports: Chest pain. Denies: Dyspnea on exertion, Edema, Orthopnea, Palpitations, Parox nocturnal dyspnea, Syncope. GIDenies: Abdominal pain, Anorexia, Belching, Bloody/tarry stool, Constipation, Diarrhea, Dysphagia, Hematemesis, Hematochezia, Mucousy stool, Melena, Nausea, Rectal pain, Vomiting. MusculoskeletalDenies: Back pain, Extremity pain , Extremity swelling, Joint pain, Joint swelling, Lumbar pain, Myalgia, Neck pain, Thoracic pain. SkinDenies: Abrasion, Abscess, Burn, Contusion, Diaphoresis, Erythema, Itching, Jaundice, Laceration, Rash, Swelling, Ulceration. NeurologicDenies: Abnormal movement, Bladder dysfunction, Bowel dysfunction, Change LOC, Confusion, Dizziness, Focal weakness, Generalize d weakness, Headache, Lightheaded, Numbness, Problem walking, Seizure, Shaking, Slurred speech, Spinning sensation, Syncope, Tingling, Unable to speak, Vision change. PsychiatricDenies: Agitation, Anxiety, Change mental status, Confusion, Delusional, Depression , Hallucinations, auditory, Hallucinations, visual , Homicidal ideation, Hostile, Insomnia, Stress, Suicidal ideation, Unable to control self. Past Medical History - AdultStated Complaint CHEST PAINAllergiesCoded Allergies:Sulfa (Sulfonamide Antibiotics) (Severe, RASH, SWELLING FACE 04/30/14) Calculated suicide risk level: No riskReview of Nursing Notes Rev avail, and agreePt reports no significant: Family history, Social historySmoking status for patients 13 years old or older: Never Smoker Physical Exam Vital SignsVital SignsFirst Documented: Result Date Time Pulse Ox 98 06/17 1811 B/P 150/90 05/21 B/P Mean 110 06/17 1811 O2 Delivery Room air 06/17 1811 Temp 97.0 06/17 1811 Pulse 92 06/17 1811 Resp 17 06/17 1811 Last Documented: Result Date Time Pulse Ox 99 06/17 1832 B/P 150/90 06/17 1811 B/P Mean 110 06/17 1811 O2 Delivery Room air 06/17 1811 Temp 97.0 06/17 181 Pulse 92 06/17 1811 Resp 17 06/17 1811 Review of Vital Signs Reviewed, Vital signs normal Basic Physical ExamBasic PE HEAD: Atraumatic/NC, EYES: PERRL, conj clear, ENT: Membranes moist, NECK: Supple, ABD: Soft/non-tender, EXT: No gross abnormality, SKIN: No rashes, warm/dry, NEURO: alert oriented, NEURO: gross movement NL, PSYCH: NL thought content Focused PEGeneral/Const General/Const Awake, Alert, No acute distress, Well appearingEyes Eyes Atraumatic, PERRL, EOMI, No nystagmusMS Neck Neck Atraumatic, Supple, No meningismus, Full range of motionResp/Chest Respiratory/Chest Atraumatic, Breath sounds NL, Breath sounds = bilat, No respiratory distressCardiovascular Cardiovascular Heart rate NL, Regular rhythm, Heart sounds NL, No murmurs, Cap refill not delayed, Peripheral circulation NLAbdomen/GI Abdomen/GI Atraumatic, Soft, Non-tender, McBurney's non-tenderMS Back Back Atraumatic, Inspection NL, Full range of motion, Painless range of motionMS Lower Extrem Lower Ext/Pelvis/MS Atraumatic, Inspection NL, Full range of motion, No swellingSkin Skin Atraumatic, Color NL, No rash, WarmNeurologic Neurologic Oriented X3, Speech NL, No motor deficits, No sensory deficitsPsychiatric Psychiatric Affect NL, Mood NL, Judgment/insight NL, Thought content NL Interpretation Diagnostic s Lab Results InterpretationResultsLaboratory Test s 06/17/201817:[Embedded Image Not Available]Laboratory Tests: 06/17 1818 Chemistr y Sodium (134 - 147 mmol/L) 137 Potassium (3.4 - 5.0 mmol/L) 3.6 Chloride (100 - 108 mmol/L) 104 Carbon Dioxide (21 - 32 mmol/L) 29 Anion Gap (4.0 - 15.0 GAP calc) 4.0 BUN (7 - 18 MG/DL) 11 Creatinine (0.6 - 1.0 MG/DL) 0.9 Glomerular Filtr Rate (>60 estGFR) >=60 max estimate Glucose (70 - 110 MG/DL) 119 H Calcium (8.5 - 10.1 MG/DL) 8.9 Total Creatine Kinase (26 - 192 Unit/L) 136 Troponin I (0.000 - 0.045 NG/ML) < 0.015 Hematology WBC (3.5 - 11.0 K/mm3) 10.9 RBC (4.70 - 6.10 M/mm3) 4.73 Hgb (10.4 - 14.9 G/DL) 12.9 Hct (31.5 - 44.1 %) 37.6 MCV (84.5 - 98.6 Fl) 79.5 L MCH (27.0 - 34.2 pg) 27.3 MCHC (31.5 - 34.0 G/DL) 34.3 H RDW (11.5 - 14.5 SD) 13.1 Pl t Count (150 - 450 K/mm3) 379 MPV (7.0 - 10.5 fL) 9.70 Recent Impressions:RADIOLOGY - XR CHEST 1 V 06/17 1824 Report Impression - Status: SIGNED Entered: 06/17/20201838 IMPRESSION:No acute cardiopulmonary process. Impression By: Mauri - Soniya Armstrong M.D. Point of Care TestingPulse Oximetry Pulse Ox % 98 On: Room air Interpretation Interpreted by me, Pulse oximetry normal Time 1910 Re-Evaluation MDM ED CourseMedication(s) OrderedMedication(s) Ordered:Central Nervous System Agents Sig/Whit Start time Last Medication Dose Route Stop Time Status Admin Aspirin 324 MG X1ED STA 06/17 1808 DC 06/17 PO 06/17 1809 182 Patient Discharge Departure Vital Signs/ConditionVital SignsFirst Documented: Result Date Time Pulse Ox 98 06/17 1811 B/P 150/90 06/17 181 B/P Mean 110 06/17 1811 O2 Delivery Room air 06/17 1811 Temp 97.0 06/17 1811 Pulse 92 06/17 181 Resp 17 06/17 181 1 Last Documented: Result Date Time Pulse Ox 99 06/17 183 B/P 150/90 06/17 1811 B/P Mean 110 06/17 1811 O2 Delivery Room air 06/17 1811 Temp 97.0 06/17 1811 Pulse 92 06/17 1811 Resp 17 05/21 All vital signs available at the time of this entry have been reviewed. Condition Stable, Improved Clinical ImpressionClinical ImpressionPrimary Impression: Chest painSecondar y Impressions: Medication intolerance Disposition DecisionDischarge )( Discharged to Home Yes )( Time 2021 )( Date 06/17/20 Discharge/Care Plan(Auto) PrescriptionsCurrent Visit ScriptsIBUPROFEN (MOTRIN) 600 MG PO QID PRN PRN PAIN IBUPROFEN (MOTRIN) 600 MG PO QID PRN PRN PAIN #30 TABS CYCLOBENZAPRINE (FLEXERIL) 10 MG P O Q8H PRN PRN MUSCLE SPASMS/PAIN CYCLOBENZAPRINE (FLEXERIL) 10 MG PO Q8H PRN PRN MUSCLE SPASMS/PAIN #15 TABS Prescriptions Reviewed Risks, Benefits, Alternative treatmentPatient Instructions ED Chest Pain, NoncardiacAdditional Instructionsreturn to work in 1 weekRefHattie Anderson DO Discharge NoteI have spoken with the patient and/or caregivers. I have explained the patient'scondition, diagnoses and treatment plan based on the information available to meat this time. I have answered the patient's and/or caregiver's questions and addressed any concerns . The patient and/or caregivers have as good an understanding of the patient's diagnosis, condition and treatment plan as can beexpected a t this point. The vital signs have been stable. Th e patient's condition is stable and appropriate fo r discharge from the emergency department. The patient will pursue further outpatient evaluatio n with the primary care physician or other designated or consulting physician as outlined i n the discharge instructions. The patient and/or caregivers are agreeable to this planof care and follow-up instructions have been explained in detail. The patient and/or caregivers have received these instructions in written format an d have expressed an understanding of the discharge instructions. The patient and/or caregivers are aware that any significant change in condition o r worsening of symptoms should prompt an immediate return to this or the closest emergency department or a call to 911. Candy Castro . 06/19/20 0723:HPI-Chest Pain Under 40 GeneralInitial Greet Date/Time 06/17/20 1808 Patient Discharge Departure Supervising Physickurt n Note MidLv Saw Pt AloneI have reviewed the PA/HAND RUG BRAIDER's note and plan of care. I was available for consultation as needed at all times during the patient's visit in the emergency department. I agree with the clinical impression, plan and disposition. at 2045 at 0724 RPT #: [id number] OF REPORTEDEmergency department [id number]:11:00L.[id number] a ilable for patient [id number]:24:16 2020-06-17 18:07:00 [id number] 004 [place] [id number] PATIENT NAME: JULISSA CARR ADMIT DATE: 06/17/20ACCOUNT NO: [id number] ROOM NO: MEDICA RECORD NO: [id number] AGE: 30 REPORT TYPE: eELECTROCARDIOGRAM SEX: F ADMITTING PHYSICIAN: ATTENDING PHYSICIAN: Order:[id number] Reason : CHEST PAIN Test Date/Time Stamp:TueJun 17 2020 18:07:37Blood Pressure : / mmHGVent. Rate : 093 BPM Atrial Rate : 093 BPM P-R Int : 128 ms QRS Dur : 086 ms QT Int : 374 m s P-R-T Axes : 027 007 -29 degrees QTc Int : 465 m s Normal sinus rhythmMinimal voltage criteria for LVH, may be normal variantConfirmed by MD Umesh, Yolande ([id number]) on 06/19/2020 2:00:33 PM Referred By: Candy Castro Confirmed by:Yolande Calvo MD Electronicall y Signed by Yolande Calvo MD on 06/19/20 at 1400 PATIENT NAME: JULISSA CARR .[id number] AVAvailable for patient [id number]:01:03
--- NOTE | 2023-05-10 08:03 | EDPHYS ---
Physician Documentation [facility] Name: Chastity Otto Age: 33 yrs Sex: Female : 1990 Arrival Date: 05/10/2023 Time: 06:56 Bed 18 Private MD: ED Physician Mark Bennett HPI: 05/10 07:53 This 33 yrs old Black Female presents to ER via Ambulatory with complaints of Neck john Pain, >24Hrs Old. 07:53 The patient or guardian complains of pain. The symptoms are located on the left jaw. john Onset: The symptoms/episode began/occurred 2 day(s) ago. Context: The problem was sustained at an unknown location, The neck injury/problem resulted from from unknown cause. Associated signs and symptoms: The patient has no apparent associated signs or symptoms. The pain does not radiate. Modifying factors: The symptoms are alleviated by nothing. Severity of symptoms: At their worst the symptoms were mild, in the emergency department the symptoms are unchanged. The patient has not experienced similar symptoms in the past. Historical: - Allergies: 07:17 Sulfa (Sulfonamide Antibiotics); hb - Home Meds: 07:17 diltiazem HCl 240 mg Oral Capsule every 24 hours [Active]; hb - PMHx: 07:17 Hypertension; hb - PSHx: 07:17 breast reduction; Tonsillectomy; hb - Immunization history:: Adult Immunizations up to date. - Social history:: Smoking status: Patient denies any tobacco usage or history of. - Family history:: not pertinent. ROS: 07:53 Constitutional: Negative for fever, chills, and weight loss, Eyes: Negative for injury, john pain, redness, and discharge, Neck: Negative for injury, pain, and swelling, Cardiovascular: Negative for chest pain, palpitations, and edema, Respiratory: Negative for shortness of breath, cough, wheezing, and pleuritic chest pain, Abdomen/GI: Negative for abdominal pain, nausea, vomiting, diarrhea, and constipation, Back: Negative for injury and pain, : Negative for injury, bleeding, discharge, and swelling, MS/Extremity: Negative for injury and deformity, Skin: Negative for injury, rash, and discoloration, Neuro: Negative for headache, weakness, numbness, tingling, and seizure, Psych: Negative for depression, anxiety, suicide ideation, homicidal ideation, and hallucinations, Allergy/Immunology: Negative for hives, rash, and allergies, Endocrine: Negative for neck swelling, polydipsia, polyuria, polyphagia, and marked weight changes, Hematologic/Lymphatic: Negative for swollen nodes, abnormal bleeding, and unusual bruising, 07:53 ENT: Positive for rhinorrhea, sinus congestion, sore throat, Exam: 07:53 Constitutional: This is a well developed, well nourished patient who is awake, alert, john and in no acute distress. Head/Face: Normocephalic, atraumatic. Eyes: Pupils equal round and reactive to light, extra-ocular motions intact. Lids and lashes normal. Conjunctiva and sclera are non-icteric and not injected. Cornea within normal limits. Periorbital areas with no swelling, redness, or edema. Neck: Trachea midline, no thyromegaly or masses palpated, and no cervical lymphadenopathy. Supple, full range of motion without nuchal rigidity, or vertebral point tenderness. No Meningismus. Chest/axilla: Normal chest wall appearance and motion. Nontender with no deformity. No lesions are appreciated. Cardiovascular: Regular rate and rhythm with a normal S1 and S2. No gallops, murmurs, or rubs. Normal PMI, no JVD. No pulse deficits. Respiratory: Lungs have equal breath sounds bilaterally, clear to auscultation and percussion. No rales, rhonchi or wheezes noted. No increased work of breathing, no retractions or nasal flaring. Abdomen/GI: Soft, non-tender, with normal bowel sounds. No distension or tympany. No guarding or rebound. No evidence of tenderness throughout. Back: No spinal tenderness. No costovertebral tenderness. Full range of motion. Skin: Warm, dry with normal turgor. Normal color with no rashes, no lesions, and no evidence of cellulitis. MS/ Extremity: Pulses equal, no cyanosis. Neurovascular intact. Full, normal range of motion. Neuro: Awake and alert, GCS 15, oriented to person, place, time, and situation. Cranial nerves II-XII grossly intact. Motor strength 5/5 in all extremities. Sensory grossly intact. Cerebellar exam normal. Normal gait. Psych: Awake, alert, with orientation to person, place and time. Behavior, mood, and affect are within normal limits. 07:53 ENT: Posterior pharynx: Airway: normal, no evidence of obstruction, Tonsils: are normal in appearance, with erythema, Uvula: normal, midline, non-edematous, no erythema, swelling, that is mild, peritonsillar mass, is not appreciated, pooling of secretions, is not appreciated, Vital Signs: 07:10 BP 121 / 89; Pulse 77; Resp 17; Temp 98.4(O); Pulse Ox 99% ; rs5 07:16 BP 121 / 89; Pulse 80; Resp 16; Temp 98.3(O); Pulse Ox 100% on R/A; Weight 133.81 kg; hb Height 5 ft. 2 in. ; Pain 8/10; 08:50 BP 125 / 81; Pulse 75; Resp 16; Pulse Ox 99% on R/A; rs5 07:16 Body Mass Index 53.96 (133.81 kg, 157.48 cm) hb 07:16 Pain Scale: Adult hb MDM: 07:13 Patient medically screened. [facility] 07:53 Data reviewed: vital signs, nurses notes. Consideration of Admission/Observation john Escalation of care including admission/observation considered. I considered the following discharge prescriptions or medication management in the emergency department Medications were administered in the Emergency Department. See MAR. Test considered but Not performed: Labs: no labs. Historians other than the Patient: pt only. Care significantly affected by the following chronic conditions: Hypertension. 05/10 07:38 Order name: PO challenge; Complete Time: 08:12 john Administered Medications: 08:11 Drug: Dexamethasone IM 10 mg IM once Route: IM; Site: left ventrogluteal; rs5 08:55 Follow up: Response: No adverse reaction rs5 08:12 Drug: Ibuprofen PO 800 mg PO once Route: PO; rs5 08:55 Follow up: Response: No adverse reaction; Pain is decreased rs5 08:12 Drug: Rocephin (cefTRIAXone) IM 1 grams IM once Route: IM; Site: right ventrogluteal; rs5 08:55 Follow up: Response: No adverse reaction rs5 Disposition Summary: 05/10/23 08:03 Discharge Ordered Notes: Location: Home john Problem: new john Symptoms: have improved john Condition: Stable john Diagnosis - Acute pharyngitis, unspecified john Followup: john - With: Private Physician - When: 2 - 3 days - Reason: Recheck today's complaints, Continuance of care, Re-evaluation by your physician Discharge Instructions: - Discharge Summary Sheet john - Pharyngitis john - Sore Throat john - Pharyngitis, [id number] [facility] Forms: - Medication Reconciliation Form [facility] - Thank You Letter john - Antibiotic Education john - Prescription Opioid Use john - Patient Portal Instructions [facility] - Leadership Thank You Letter [facility] Prescriptions: - dexamethasone 2 mg Oral tablet - take 1 tablet ORAL route 2 times per day; 8 tablet; Refills: 0, Product [facility] Selection Permitted - Augmentin 875-125 mg Oral Tablet - take 1 tablet ORAL route every 12 hours for 10 days; 20 tablet; Refills: 0, [facility] Product Selection Permitted - Ibuprofen 800 mg Oral tablet - take 1 tablet ORAL route 3 times per day As needed take with food; 21 tablet; [facility] Refills: 0, Product Selection Permitted Signatures: Mark Bennett MD MD cha Baxter, Heather, RN RN Serjio Hui RN RN rs5
--- NOTE | 2023-05-10 08:03 | ER ---
Nurse's Notes [facility] Name: Chastity Otto Age: 33 yrs Sex: Female : 1990 Arrival Date: 05/10/2023 Time: 06:56 Bed 18 Private MD: Diagnosis: Acute pharyngitis, unspecified Presentation: 05/10 07:16 Chief complaint: Left sided neck pain x 3-4 days. Coronavirus screen: At this time, the client does not indicate any symptoms associated with coronavirus-19. Ebola Screen: No symptoms or risks identified at this time. Initial Sepsis Screen: Does the patient meet any 2 criteria? No. Patient's initial sepsis screen is negative. Does the patient have a suspected source of infection? No. Patient's initial sepsis screen is negative. Risk Assessment: Do you want to hurt yourself or someone else? Patient reports no desire to harm self or others. Onset of symptoms was May 07, 2023. 07:16 Method Of Arrival: Ambulatory 07:16 Acuity: ROSA 4 hb Historical: - Allergies: 07:17 Sulfa (Sulfonamide Antibiotics); hb - Home Meds: 07:17 diltiazem HCl 240 mg Oral Capsule every 24 hours [Active]; hb - PMHx: 07:17 Hypertension; hb - PSHx: 07:17 breast reduction; Tonsillectomy; hb - Immunization history:: Adult Immunizations up to date. - Social history:: Smoking status: Patient denies any tobacco usage or history of. - Family history:: not pertinent. Screenin:10 [facility] ED Fall Risk Assessment (Adult) History of falling in the last 3 months, rs5 including since admission No falls in past 3 months (0 pts) Confusion or Disorientation No (0 pts) Intoxicated or Sedated No (0 pts) Impaired Gait No (0 pts) Mobility Assist Device Used No (0 pt) Altered Elimination No (0 pt) Score/Fall Risk Level 0 - 2 = Low Risk Oriented to surroundings, Maintained a safe environment. Abuse screen: Denies threats or abuse. Nutritional screening: No deficits noted. Tuberculosis screening: No symptoms or risk factors identified. Assessment: 07:10 General: Appears in no apparent distress. uncomfortable, Behavior is calm, cooperative. rs5 Pain: Complains of pain in left side of neck Pain radiates to left side of head Pain currently is 8 out of 10 on a pain scale. Quality of pain is described as aching, Pain began 1 day ago. Is continuous. Neuro: Level of Consciousness is awake, alert, obeys commands, Oriented to person, place, time, situation. Cardiovascular: Heart tones S1 S2 present Rhythm is regular. Respiratory: Airway is patent Respiratory effort is even, unlabored, Respiratory pattern is regular, symmetrical, Breath sounds are clear bilaterally. GI: Abdomen is round non-distended, Bowel sounds present X 4 quads. Abd is soft and non tender X 4 quads. : No signs and/or symptoms were reported regarding the genitourinary system. EENT: No signs and/or symptoms were reported regarding the EENT system. Derm: Skin is intact, Skin is dry, Skin is normal, Skin temperature is warm. Musculoskeletal: Range of motion: intact in all extremities. 07:50 Reassessment: To bedside with crackers and juice for PO challenge. rs5 08:12 GI: Patient currently denies nausea, vomiting. rs5 Vital Signs: 07:10 BP 121 / 89; Pulse 77; Resp 17; Temp 98.4(O); Pulse Ox 99% ; rs5 07:16 BP 121 / 89; Pulse 80; Resp 16; Temp 98.3(O); Pulse Ox 100% on R/A; Weight 133.81 kg; hb Height 5 ft. 2 in. ; Pain 8/10; 08:50 BP 125 / 81; Pulse 75; Resp 16; Pulse Ox 99% on R/A; rs5 07:16 Body Mass Index 53.96 (133.81 kg, 157.48 cm) hb 07:16 Pain Scale: Adult hb ED Course: 07:00 Patient arrived in ED. gm2 07:09 Serjio Hui, ERICKSON is Primary Nurse. rs5 07:10 Mark Bennett MD is Attending Physician. john 07:10 Patient has correct armband on for positive identification. Bed in low position. Call rs5 light in reach. Side rails up X2. 07:17 Triage completed. hb 07:17 Arm band placed on. hb 08:55 No provider procedures requiring assistance completed. Patient did not have IV access rs5 during this emergency room visit. Administered Medications: 08:11 Drug: Dexamethasone IM 10 mg IM once Route: IM; Site: left ventrogluteal; rs5 08:55 Follow up: Response: No adverse reaction rs5 08:12 Drug: Ibuprofen PO 800 mg PO once Route: PO; rs5 08:55 Follow up: Response: No adverse reaction; Pain is decreased rs5 08:12 Drug: Rocephin (cefTRIAXone) IM 1 grams IM once Route: IM; Site: right ventrogluteal; rs5 08:55 Follow up: Response: No adverse reaction rs5 Medication: 07:22 VIS not applicable for this client. rs5 Outcome: 08:03 Discharge ordered by . john 08:55 Discharged to home ambulatory, rs5 08:55 Condition: stable 08:55 Discharge instructions given to patient, Instructed on discharge instructions, follow up and referral plans. medication usage, Demonstrated understanding of instructions, follow-up care, medications, Prescriptions given X 3, 08:57 Patient left the ED. rs5 Signatures: Mark Bennett MD MD cha Baxter, Heather, RN RN Serjio Hui RN RN [facility] Mireya Alvarenga 2 Corrections: (The following items were deleted from the chart) 09:00 08:30 Reassessment: To bedside with crackers and juice for PO challenge. rs5 rs5 09:00 08:50 GI: Patient currently denies nausea, vomiting, rs5 rs5
[2023-05-10] MEDS ORDERED: dexAMETHasone 10 MG/ML VIAL ONE (08:05)
[2023-05-10] MEDS ORDERED: IBUPROFEN 400 MG TAB ONE (08:06)
[2023-05-10] MEDS ORDERED: CEFTRIAXONE 1000 MG/VIAL ONE (08:06)
[2023-05-10] MEDS ORDERED: LIDOCAINE 1% MPF 5 ML VIAL ONE (08:11)
[2023-05-10 09:01] VITALS: BP 121/89
[2023-05-10 09:03] VITALS: TEMP 98.3; O2SAT 100
== END 2023-05-10 08:57 | disposition home or self-care (01) ==
LOC: ER 06:56
DX: J02.9 Acute pharyngitis, unspecified (principal); I10 Essential (primary) hypertension; Z88.2 Allergy status to sulfonamides
CPT/HCPCS: 96372; 99284; J2001; J1100; J0696